=== PATIENT | male | born 1975 | race Caucasian/White ===

== ENCOUNTER 2017-08-30 14:40 | Emergency (ER) | payer MEDICAID, OTHER, SELFPAY ==
[~2017-08-30] VITALS: Ht 162.6 cm; Wt 79.5 kg
[~2017-08-30 14:40] MED LIST: ADVI200T PO; FOLI1TAB4 PO; NICO21PAT TD; THIA100TA PO; VITMTA PO
[2017-08-30] MEDS ORDERED: NS 1,000 ML IV SCH (15:26)
--- NOTE | 2017-08-30 15:37 | ECGEPIP ---
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
[2017-08-30 15:54] LABS: INR 0.94
[2017-08-30 16:00] LABS: BASO % 0.4 % (0.0-1.0); IMMATURE GRANULOCYTE % 0.2 % (0-0); LYMPH # 1.5 10^3/uL (1.5-4.5); LYMPH % 18.7 % (24.0-44.0); MEAN CORPUSCULAR HEMOGLOBIN 32.7 pg (27.0-33.0); MEAN CORPUSCULAR VOLUME 93.2 fl (80.0-96.0); MONO # 0.5 10^3/uL (0.0-0.8); MONO % 6.7 % (0.0-5.0); PLATELET COUNT, AUTOMATED 298 10^3/uL (150-450); RED CELL DISTRIBUTION WIDTH 12.7 % (11.5-14.5); WHITE BLOOD COUNT 8.1 10^3/uL (4.0-10.0)
[2017-08-30 16:23] LABS: ALT/SGPT 60 U/L (12-78); ANION GAP 11 MEQ/L (8-16); AST/SGOT 41 U/L (7-37); BLOOD UREA NITROGEN 9 MG/DL (7-18); CARBON DIOXIDE LEVEL 23 MEQ/L (21-32); CHLORIDE LEVEL 100 MEQ/L (98-107); CREATININE FOR GFR 0.86 MG/DL (0.70-1.30); GLOMERULAR FILTRATION RATE > 60.0 (>60); GLUCOSE, FASTING 87 MG/DL (70-105); POTASSIUM SERUM 4.1 MEQ/L (3.5-5.1); SODIUM LEVEL 134 MEQ/L (136-145)
[2017-08-30 16:24] LABS: ALBUMIN 4.1 GM/DL (3.2-5.2); ALBUMIN/GLOBULIN RATIO 1.08 (1.00-1.93); ALKALINE PHOSPHATASE 60 U/L (45-117); BILIRUBIN,DIRECT 0.2 MG/DL (0.0-0.2); BILIRUBIN,TOTAL 0.7 MG/DL (0.2-1.0); MAGNESIUM LEVEL 1.9 MG/DL (1.8-2.4); TOTAL PROTEIN 7.9 GM/DL (6.4-8.2)
[2017-08-30] MEDS ORDERED: ISOVUE-370 76% 100ML VIAL (Q9967) As Ordered ONE (17:44)
[2017-08-30] MEDS ORDERED: CHLO125TA PO (19:08)
--- NOTE | 2017-08-30 19:30 | REPUSA ---
CLINICAL HISTORY: Abdominal pain. TECHNIQUE: Multiple axial, coronal, sagittal CT images were obtained through the abdomen and pelvis after administration of intravenous contrast material. Oral contrast material is not administered. COMMENTS: There is a 3.8 x 2.4 cm hypodense lesion noted in the anterior segment of the right hepatic lobe whic h is most compatible with hemangioma. Consider additional evaluation with MRI or CT hepatic protocol including delayed sequences. The spleen is normal. The gallbladder is within normal limits. The p ancreas is of normal contour and attenuation characteristics. There is no evidence of adrenal mass. Both kidneys demonstrate prompt and equal nephrograms. The kidneys are normal in size, shape and con figuration. There is no evidence of renal or ureteral mass. No renal or ureteral calculi are identi fied. There is no hydroureter or hydronephrosis. No evidence for appendicitis. There is no bowel wall thickening. No evidence for small or large bow el obstruction. There is no evidence of abdominal ascites or lymphadenopathy. The bladder is not fully distended. The bladder wall is severely thickened measuring up to 9 mm, ple ase correlate clinincally to exclude cystitis. There is no pelvic ascites or lymphadenopathy. The prostate gland is mildly enlarged. Small fat containing umbilical hernia is present. Images of the lung bases show no evidence of pleural or parenchymal mass. There are no pleural effus ions. The bony structures are free of lytic or blastic lesions. IMPRESSION: 1. Hypodense lesion in the anterior segment of the right hepatic lobe which is most compatible with hemangioma. Consider additional evaluation with MRI or CT hepatic protocol including delayed sequenc es. 2. The bladder wall is severely thickened. Please correlate clinincally to exclude cystitis. 3. The prostate gland is mildly enlarged. 4. Small fat containing umbilical hernia.
[2017-08-30 19:48] VITALS: BP 152/94
--- NOTE | 2017-09-03 09:19 | ED PDOC ---
Post-Departure Follow-Up oksana esteban faxed formal report of ct abd/p for fu Maxwell Caceres MD Sep 03, 2017 09:19
== END 2017-08-30 20:12 | disposition home or self-care (01) ==
LOC: M ED 14:40
DX: I10 Essential (primary) hypertension (principal); R10.12 Left upper quadrant pain; G89.29 Other chronic pain; Z91.14 Patient's other noncompliance with medication regimen; F41.9 Anxiety disorder, unspecified; F17.210 Nicotine dependence, cigarettes, uncomplicated; Z87.19 Personal history of other diseases of the digestive system
CPT/HCPCS: 36415; 74177; 80048; 80076; 82550; 82553; 83690; 83735; 85025; 85610; 86850; 86900; 86901; 93005; 93041; 99285; Q9967

== ENCOUNTER → 2017-09-11 | Outpatient (REF) | payer MEDICAID, OTHER ==
[~2017-09-11] MED LIST changes: +CHLO125TA PO
[2017-09-12 12:01] LABS: ANION GAP 12 MEQ/L (8-16); BLOOD UREA NITROGEN 9 MG/DL (7-18); CALCIUM LEVEL 9.5 MG/DL (8.5-10.1); CARBON DIOXIDE LEVEL 27 MEQ/L (21-32); CHLORIDE LEVEL 90 MEQ/L (98-107); CREATININE FOR GFR 0.82 MG/DL (0.70-1.30); GLOMERULAR FILTRATION RATE > 60.0 (>60); GLUCOSE, FASTING 101 MG/DL (70-105); SODIUM LEVEL 129 MEQ/L (136-145)
== END ==
LOC: M SFHCCLAY 15:45
PROVIDERS: ATTEND Nurse Practitioner Family
DX: I10 Essential (primary) hypertension (principal)

== ENCOUNTER → 2017-09-11 | Outpatient (CLI) | payer MEDICAID, OTHER ==
--- NOTE | 2017-09-11 16:46 | REP ---
Clinical: Chest pain . Comparison: 05/03/2016 . Technique: PA and lateral. Findings: The mediastinum and cardiac silhouette are normal. The lung tyson are clear and without acute consolidation, effusion, or pneumothorax. The skeletal structures are intact and normal. Impression: 1. No acute cardiopulmonary process. Signed by Devaughn Zabala MD 09/11/2017 04:37 P
== END ==
LOC: M CLY 16:05
PROVIDERS: ATTEND Nurse Practitioner Family
DX: R07.89 Other chest pain (principal)

== ENCOUNTER → 2017-09-14 | Outpatient (REF) | payer MEDICAID, OTHER ==
[2017-09-14 19:12] LABS: ANION GAP 9 MEQ/L (8-16); BLOOD UREA NITROGEN 8 MG/DL (7-18); CALCIUM LEVEL 9.1 MG/DL (8.5-10.1); CARBON DIOXIDE LEVEL 28 MEQ/L (21-32); CHLORIDE LEVEL 93 MEQ/L (98-107); CREATININE FOR GFR 0.79 MG/DL (0.70-1.30); GLOMERULAR FILTRATION RATE > 60.0 (>60); GLUCOSE, FASTING 87 MG/DL (70-105); SODIUM LEVEL 130 MEQ/L (136-145)
[2017-09-14 19:29] LABS: POTASSIUM SERUM 4.9 MEQ/L (3.5-5.1)
== END ==
LOC: M SFHCCLAY 13:27
PROVIDERS: ATTEND Nurse Practitioner Family
DX: E87.1 Hypo-osmolality and hyponatremia (principal)

== ENCOUNTER → 2017-10-01 | Outpatient (CLI) | payer OTHER ==
[~2017-10-01] MED LIST changes: +GASTROGRAFIN SOLUTION 30ML (Q9963) As Ordered ONE; +ISOVUE-370 76% 100ML VIAL (Q9967) As Ordered ONE
--- NOTE | 2017-10-01 20:03 | REP ---
CT abdomen without and with IV contrast: Dynamic postcontrast imaging. Oral contrast also administered. History: Liver lesion. Comparison CT study August 30, 2017. Comparison CT chest study May 03, 2016. Both of these prior studies showed a 4 cm area of low density in the left lobe of the liver. Dynamic CT protocol was suggested. CT contrast dose: 100 ml of intravenous Isovue 370. CT findings: The low density area in the left lobe is again seen. This appears smaller than on the April [address] study on the postcontrast images measuring approximately 2.5 cm. On dynamic postcontrast images it remains subtly hypodense. These are not the imaging characteristics of a benign hemangioma but rather regional fatty infiltration of the liver or other a benign lesion. The lesion has not progressed in the year and a half since the April 2016 study. No other focal liver lesion is seen. No splenic lesion is seen. Normal adrenal glands are seen. Pancreas is unremarkable. No renal lesion is observed. No hydronephrosis seen. Small and large intestinal bowel loops are unremarkable. Impression: Low density lesion in the left lobe of the liver near the falciform ligament most compatible with regional fatty infiltration of the liver. It appears to have regressed somewhat since its original observation in April of 2016. It does not appear to represent a benign hemangioma. Followup CT scanning could be considered in 1 year. Signed by Stephen Collado MD 10/01/2017 09:45 P
--- NOTE | 2017-10-02 04:39 | REP ---
Clinical: Suspected bladder wall thickening by CT evaluation. Technique: Real time calvillo scale ultrasound examination using curved array transducer. Findings: Very subtle bladder wall thickening to 4 mm cannot be excluded without discrete focal wall abnormality or bladder mass lesion. Bilateral ureteral jets are identified. Prevoid bladder measures 12.5 x 10.7 x 7.0 cm (611 ml). Postvoid bladder measures 4.4 x 3.1 x 2.5 cm (23 ml). Postvoid residual equals 4%. Impression: Essentially normal bladder ultrasound. Minimal circumferential bladder wall thickening to 4 mm is nonspecific and likely inconsequential. Signed by Devaughn Zabala MD 10/02/2017 01:31 A
== END ==
LOC: M RAD 07:53
PROVIDERS: ATTEND Nurse Practitioner Family
DX: N32.89 Other specified disorders of bladder (principal); K76.9 Liver disease, unspecified
CPT/HCPCS: 74170; 76857; Q9963; Q9967

== ENCOUNTER → 2017-10-29 | Outpatient (REF) | payer OTHER, MEDICAID ==
[2017-10-29 14:08] LABS: APPEARANCE, URINE CLEAR (CLEAR); BACTERIA, URINE AUTO NEGATIVE (NEGATIVE); BILIRUBIN, URINE AUTO NEGATIVE (NEGATIVE); BLOOD, URINE BLOOD NEGATIVE (NEGATIVE); COLOR, URINE YELLOW (YELLOW); GLUCOSE, URINE (UA) AUTO NEGATIVE (NEGATIVE); KETONE, URINE AUTO NEGATIVE (NEGATIVE); LEUKOCYTE ESTERASE, URINE AUTO NEGATIVE (NEGATIVE); NITRITE, URINE AUTO NEGATIVE (NEGATIVE); PROTEIN, URINE AUTO NEGATIVE (NEGATIVE); RBC, URINE AUTO 1 /HPF (0-3); SPECIFIC GRAVITY URINE AUTO 1.005 (1.002-1.035); SQUAMOUS EPITHELIAL CELL UR AU 0 /HPF (0-6); UROBILINOGEN, URINE AUTO 0.2 mg/dL (0.0-2.0); WBC, URINE AUTO 5 /HPF (0-3)
== END ==
LOC: M SMT 13:19
DX: N32.89 Other specified disorders of bladder (principal)

== ENCOUNTER → 2017-11-27 | Day surgery (SDC) | payer OTHER ==
[~2017-11-27] MED LIST changes: -ADVI200T PO; -CHLO125TA PO; -FOLI1TAB4 PO; -GASTROGRAFIN SOLUTION 30ML (Q9963) As Ordered ONE; -ISOVUE-370 76% 100ML VIAL (Q9967) As Ordered ONE; +LIDOCAINE 2% INJ 100 MG/5 ML SDV (FOR ANES.) As Ordered; -NICO21PAT TD; +PROPOFOL 200 MG/20 ML VIAL As Ordered; -THIA100TA PO; -VITMTA PO
[2017-11-27] MEDS: NS 1,000 ML IV (08:37)
== END | disposition home or self-care (01) ==
LOC: M OPP 08:21
DX: R19.7 Diarrhea, unspecified (principal); D12.2 Benign neoplasm of ascending colon; D12.3 Benign neoplasm of transverse colon; K64.8 Other hemorrhoids; I10 Essential (primary) hypertension; R12 Heartburn; K21.9 Gastro-esophageal reflux disease without esophagitis; R05 Cough; G47.30 Sleep apnea, unspecified; R06.83 Snoring; N40.1 Benign prostatic hyperplasia with lower urinary tract symptoms; F17.210 Nicotine dependence, cigarettes, uncomplicated; Z79.899 Other long term (current) drug therapy; Z80.1 Family history of malignant neoplasm of trachea, bronchus and lung; Z80.3 Family history of malignant neoplasm of breast
CPT/HCPCS: 45380

== ENCOUNTER → 2018-08-20 | Outpatient (CLI) | payer OTHER | LOC: M RAD 13:16 | DX: R60.9 Edema, unspecified (principal) | CPT/HCPCS: 93970 ==

== ENCOUNTER → 2018-09-09 | Outpatient (REF) | payer OTHER ==
[2018-09-09 11:53] LABS: BASO # 0.1 10^3/uL (0.0-0.2); BASO % 0.9 % (0.0-1.0); EOS # 0.1 10^3/uL (0.0-0.50); EOS % 0.9 % (0.0-3.0); HEMATOCRIT 48.6 % (42.0-52.0); HEMOGLOBIN 16.8 g/dl (13.5-17.5); IMMATURE GRANULOCYTE % 0.1 % (0-3.0); MEAN CORPUSCULAR HEMOGLOBIN 32.6 pg (27.0-33.0); MEAN CORPUSCULAR HGB CONC 34.6 g/dl (32.0-36.5); MEAN CORPUSCULAR VOLUME 94.2 fl (80.0-96.0); MONO # 0.7 10^3/uL (0.0-0.8); MONO % 10.4 % (0.0-5.0); NEUTROPHILS # 4.1 10^3/uL (1.8-7.7); NEUTROPHILS % 58.7 % (36.0-66.0); PLATELET COUNT, AUTOMATED 376 10^3/uL (150-450); RED BLOOD COUNT 5.16 10^6/uL (4.30-6.10); RED CELL DISTRIBUTION WIDTH 12.7 % (11.5-14.5); WHITE BLOOD COUNT 6.9 10^3/uL (4.0-10.0)
[2018-09-09 12:33] LABS: ALBUMIN/GLOBULIN RATIO 1.14 (1.00-1.93); ALKALINE PHOSPHATASE 57 U/L (45-117); ALT/SGPT 65 U/L (12-78); ANION GAP 8 MEQ/L (8-16); AST/SGOT 26 U/L (7-37); BILIRUBIN,TOTAL 0.4 MG/DL (0.2-1.0); BLOOD UREA NITROGEN 19 MG/DL (7-18); CALCIUM LEVEL 9.4 MG/DL (8.5-10.1); CARBON DIOXIDE LEVEL 26 MEQ/L (21-32); CHLORIDE LEVEL 105 MEQ/L (98-107); CHOLESTEROL LEVEL 230 MG/DL (<200); CHOLESTEROL RISK RATIO 6.388 (<5); CREATININE FOR GFR 1.19 MG/DL (0.70-1.30); FREE T4 1.05 NG/DL (0.76-1.46); GLOMERULAR FILTRATION RATE > 60.0 (>60); GLUCOSE, FASTING 99 MG/DL (70-100); HDL CHOLESTEROL 36 MG/DL (>40); LDL CHOLESTEROL 162 MG/DL (<100); NON-HDL-C 194 MG/DL; SODIUM LEVEL 139 MEQ/L (136-145); TOTAL PROTEIN 7.5 GM/DL (6.4-8.2); TRIGLYCERIDES LEVEL 159 MG/DL (<150)
== END ==
LOC: M SFHCCLAY 08:10
DX: I10 Essential (primary) hypertension (principal); F10.20 Alcohol dependence, uncomplicated
CPT/HCPCS: 84443

== ENCOUNTER → 2018-12-10 | Outpatient (REF) | payer OTHER ==
[~2018-12-10] MED LIST changes: +ADVI200T PO; +CHLO125TA PO; +FLOM0.4C39 PO; +FOLI1TAB11 PO; -LIDOCAINE 2% INJ 100 MG/5 ML SDV (FOR ANES.) As Ordered; +LISI-538 PO; +NICO21PAT TD; -PROPOFOL 200 MG/20 ML VIAL As Ordered; +THIA100T7 PO; +THIA100TA PO; +VITMTA PO
[2018-12-10 12:40] LABS: ALT/SGPT 39 U/L (12-78); BILIRUBIN,TOTAL 0.6 MG/DL (0.2-1.0); BLOOD UREA NITROGEN 9 MG/DL (7-18); CALCIUM LEVEL 9.2 MG/DL (8.5-10.1); CARBON DIOXIDE LEVEL 27 MEQ/L (21-32); CHLORIDE LEVEL 103 MEQ/L (98-107); CHOLESTEROL LEVEL 160 MG/DL (<200); CHOLESTEROL RISK RATIO 2.962 (<5); GLOMERULAR FILTRATION RATE > 60.0 (>60); GLUCOSE, FASTING 91 MG/DL (70-100); HDL CHOLESTEROL 54 MG/DL (>40); LDL CHOLESTEROL 84 MG/DL (<100); NON-HDL-C 106 MG/DL; POTASSIUM SERUM 4.5 MEQ/L (3.5-5.1); SODIUM LEVEL 139 MEQ/L (136-145); TOTAL PROTEIN 7.3 GM/DL (6.4-8.2); TRIGLYCERIDES LEVEL 111 MG/DL (<150)
== END ==
LOC: M SFHCCLAY 09:28
PROVIDERS: ATTEND Nurse Practitioner Family
DX: E78.49 Other hyperlipidemia (principal)

== ENCOUNTER 2019-02-24 02:48 | Inpatient (IN) | payer OTHER ==
[~2019-02-24] VITALS: Ht 162.6 cm; Wt 88.0 kg
[2019-02-24] VITALS (20 sets, daily range): BP systolic 100–140; BP diastolic 65–94
[2019-02-24] MEDS ORDERED: MORPHINE 4 MG/ML 1ML VIAL/SYRINGE (J2270) IV ONE (03:45)
[2019-02-24 04:31] LABS: HEMATOCRIT 41.3 % (42.0-52.0); HEMOGLOBIN 14.1 g/dl (13.5-17.5); MEAN CORPUSCULAR HEMOGLOBIN 31.3 pg (27.0-33.0); MEAN CORPUSCULAR HGB CONC 34.1 g/dl (32.0-36.5); MEAN CORPUSCULAR VOLUME 91.6 fl (80.0-96.0); PLATELET COUNT, AUTOMATED 130 10^3/uL (150-450); RED BLOOD COUNT 4.51 10^6/uL (4.30-6.10); WHITE BLOOD COUNT 6.3 10^3/uL (4.0-10.0)
[2019-02-24] MEDS ORDERED: CLAR10CA3 PO (04:35)
[2019-02-24] MEDS ORDERED: ATOR1TAB21 PO (04:35)
[2019-02-24] MEDS ORDERED: AMLO10TA5 PO (04:35)
[2019-02-24] MEDS ORDERED: CLOTLOT TOP (04:35)
[2019-02-24] MEDS ORDERED: B-1100TA2 PO (04:35)
[2019-02-24 04:39] LABS: INR 0.92; PROTHROMBIN TIME 12.5 SECONDS (12.1-14.4)
[2019-02-24 04:40] LABS: PARTIAL THROMBOPLASTIN TIME 46.2 SECONDS (25.4-37.6)
[2019-02-24] MEDS ORDERED: THIAMINE HCL 200 MG/2 ML VIAL (J3411) IM ONE (04:45)
[2019-02-24] MEDS ORDERED: MOM 30ML SUSPENSION UDC PO PRN (04:45)
[2019-02-24] MEDS ORDERED: MAALOX 30 ML SUSP *UDC PO PRN (04:45)
[2019-02-24] MEDS ORDERED: ACETAMINOPHEN TAB 650MG DOSE (2X325MG) PO PRN (04:45)
[2019-02-24] MEDS ORDERED: PANTOPRAZOLE 40MG INJ (PROTONIX) (C9113) IV ONE (04:45)
--- NOTE | 2019-02-24 04:48 | HPEPDOC ---
General Date of Admission February 24, 2019 at 04:13 Chief Complaint The patient is a 44-year-old male admitted with a reason for visit of Right Pop liteal Artery Occlusion. Source: Patient, RN/, Old records History of Present Illness Mr. Pride is a 44 years old man with hx/o smoking and heavy alcohol use. He presented to [facility] ER with c/o right leg pain; unclear for how long his symptoms were going on. But he reports pain when walking, and feeling cold on right foot. CTA showed total occlusion of the right Popliteal Artery with collaterals. Pt was transferred to [facility] ED, and seen by Dr. Allison Alas who is taking pt to OR for catheter-guided thrombolytic procedure. During my visit, pt appears flushed and anxius. He reports drinking last night until 8 pm. His breath smells of alcohol. He has previously been treated for alcohol withdrawal. Home Medications Scheduled Amlodipine Besylate (Amlodipine Besylate) 10 Mg Tablet, 10 MG PO DAILY, (Reported) Atorvastatin Calcium (Atorvastatin Calcium) 20 Mg Tablet, 20 MG PO DAILY, (Reported) Thiamine HCl (Vitamin B-1) 100 Mg Tablet, 100 MG PO DAILY, (Reported) Scheduled PRN Clotrimazole/Betamethasone Dip (Clotrimazole-Betamethasone Lot) 30 Ml Lotion, 1 APLCT TOP BID PRN for EAR PAIN, (Reported) APPLIES IN RIGHT EAR DIRECTED Loratadine (Claritin) 10 Mg Capsule, 10 MG PO DAILY PRN for ALLERGIES, (Reported) Allergies Coded Allergies: No Known Allergies (Unverified , 11/12/17) Past Medical History Medical History Alcohol use, Psychiatric disorder Surgical History none Family History Significant Family History: Cancer Social History * Smoker: current smoker Alcohol: heavy Drugs: denies A-FIB/CHADSVASC A-FIB History Current/History of A-Fib/PAF?: No Review of Systems Constitutional: Denies: Chills, Fever Eyes: Denies: Pain ENT: Denies: Head Aches Skin: Denies: Rash, Lesions Pulmonary: Denies: Dyspnea, Cough Cardiovascular: Denies: Chest Pain Gastrointestinal: Denies: Nausea, Vomiting, Abdominal Pain Genitourinary: Denies: Dysuria Musculoskeletal: Denies: Neck Pain, Back Pain Neurological: Denies: Weakness Psych: Reports: Mood Normal, Anxiety Physical Examination General Exam: Positive: Alert, Cooperative, No Acute Distress Eye Exam: Positive: PERRLA ENT Exam: Positive: Atraumatic Neck Exam: Positive: Supple; Negative: JVD Chest Exam: Positive: Clear to auscultation, Normal air movement Heart Exam: Positive: Rate Normal, Regular Rhythm Abdomen Exam: Positive: Normal bowel sounds, Soft; Negative: Tenderness Extremity Exam: Positive: Other (right foot cold and pale; right dorsalis pedis pulse is very weak, barely palpable); Negative: Edema Skin Exam: Positive: Nl turgor and temperature; Negative: Rash, Breakdown Neuro Exam: Positive: Normal Speech, Strength at 5/5 X4 ext, Normal Tone Psych Exam: Positive: Mental status NL, Mood NL, Anxiety, Oriented x 3 Vital Signs Vital Signs Date Time Temp Pulse Resp B/P (MAP) Pulse Ox O2 Delivery O2 Flow Rate FiO2 02/24/19 04:25 89 18 119/75 (90) 97 02/24/19 03:22 97.6 Laboratory Data Labs 24H Laboratory Tests 2 02/24/19 04:09: Prothrombin Time 12.5, Prothromb Time International Ratio 0.92, Activated Partial Thromboplast Time 46.2H 02/24/19 04:23: Nucleated Red Blood Cells % (auto) 0.0 CBC/BMP Laboratory Tests 02/24/19 04:23 Red Blood Count 4.51, Mean Corpuscular Volume 91.6, Mean Corpuscular Hemoglobin 31.3, Mean Corpuscular Hemoglobin Concent 34.1, Red Cell Distribution Width 13.5 Assessment/Plan PVD With Total Occlusion of Right Popliteal Artery - Pt going to OR for catheter-guided thrombolytic tx - Admit to ICU post-op - Post-thrombolytic management to be arranged by Dr. Alas - Monitor bleeding - Tele, r/o AF; Echo Heavy Alcohol Use, Tobacco Use - CIWA protocol, plus Ativan standing dose due to high risk of withdrawal, which can significantly affect post-thrombolytic management - Thiamine, Folate, Vitamins - IV hydration; IV Protonix - Nicotiine patch prn Problems (1) Alcohol withdrawal Status: Acute (2) Abdominal pain Status: Acute (3) Hypertension Status: Acute (4) Arterial embolism of leg Status: Acute Plan / VTE VTE Prophylaxis Ordered?: No VTE Exclusion Mechanical Proph: Patient on IV Heparin VTE Exclusion Pharmacological: IV Heparin Therapy SAMUEL COHEN MD February 24, 2019 04:47
[2019-02-24] MEDS ORDERED: PROPOFOL 200 MG/20 ML VIAL As Ordered ONE (04:49)
[2019-02-24] MEDS ORDERED: KETAMINE HCL 200 MG/20 ML VIAL As Ordered ONE (04:50)
[2019-02-24] MEDS ORDERED: ONDANSETRON 4MG/2ML VIAL (J2405) As Ordered ONE (04:50)
[2019-02-24] MEDS ORDERED: LIDOCAINE 2% INJ 100 MG/5 ML SDV (FOR ANES.) As Ordered ONE (04:50)
[2019-02-24] MEDS ORDERED: MIDAZOLAM INJ 5 MG/ML VIAL (J2250) As Ordered ONE (04:51)
[2019-02-24] MEDS ORDERED: fentaNYL 100 MCG/2 ML INJECTION (J3010) As Ordered ONE ×2 (04:51→15:46)
[2019-02-24] MEDS ORDERED: ceFAZolin 2 GM/D5W 50 ML IV BAG (J0690 PER 500MG) As Ordered ONE (04:56)
[2019-02-24] MEDS ORDERED: HEPARIN SOD (PORCINE) 5000 UNITS/ML VIAL As Ordered ONE (04:56)
[2019-02-24] MEDS ORDERED: LORazepam 2 MG TAB PO PRN (05:00)
[2019-02-24] MEDS ORDERED: ALTEPLASE 2 MG/2 ML VIAL (J2997 PER 1MG) IV ONE (05:00)
[2019-02-24] MEDS: NS IV SCH ×2 (05:00→15:23)
[2019-02-24] MEDS ORDERED: NICOTINE 21MG/24HR 1 EA TRANSDERMAL TD PRN (05:00)
[2019-02-24] MEDS: ALTEPLASE RECOMBINANT IV SCH ×2 (05:00→15:23)
[2019-02-24 05:04] LABS: ALBUMIN 3.5 GM/DL (3.2-5.2); ALT/SGPT 127 U/L (12-78); BILIRUBIN,TOTAL 0.6 MG/DL (0.2-1.0); BLOOD UREA NITROGEN 7 MG/DL (7-18); CALCIUM LEVEL 8.5 MG/DL (8.5-10.1); CARBON DIOXIDE LEVEL 26 MEQ/L (21-32); CHLORIDE LEVEL 105 MEQ/L (98-107); CREATININE FOR GFR 0.72 MG/DL (0.70-1.30); GLOMERULAR FILTRATION RATE > 60.0 (>60); GLUCOSE, FASTING 90 MG/DL (70-100); MAGNESIUM LEVEL 2.1 MG/DL (1.8-2.4); PHOSPHORUS LEVEL 3.3 MG/DL (2.5-4.9); SODIUM LEVEL 140 MEQ/L (136-145); TOTAL PROTEIN 6.9 GM/DL (6.4-8.2)
--- NOTE | 2019-02-24 05:08 | CR.PDOC ---
General Date of Consultation: February 24, 2019 Consultation REASON FOR CONSULTATION/CHIEF COMPLAINT: "My right foot got cold " HISTORY OF PRESENT ILLNESS: This is a very pleasant 44-year-old gentleman who is drinking beer with a friend yesterday afternoon and evening, and around 8 PM he was walking home and noted pain in his right foot. The pain worsened and he was unable to stand on his foot and he was seen at an outside hospital. A CTA of the abdomen and pelvis with runoff revealed occlusion of the right popliteal artery and proximal anterior tibial artery with patent distal tibial runoff. I do not see an aneurysm on the CTA, I do see some calcified plaque. It is unclear if this is secondary to chronic peripheral vascular disease versus embolic event. We will need to obtain an echo, likely tomorrow, but he has no history of atrial fibrillation, palpitations, and his EKG is normal sinus rhythm. I think the most likely scenario is that he had some chronic peripheral vascular disease that thrombosed. I discussed the risks benefits and alternatives to thrombolysis procedure with the patient. He denies a history of nosebleeds, GI bleeds, blood in his stool, coughing up blood, vomiting up blood, brain aneurysms, stroke, recent surgery, recent trauma including falls or motor vehicle collisions, recent head injury. He is aware that with TPA thrombolysis there is an increased risk of bleeding due to his history of alcoholism, but we're hoping to use initial small amount of TPA in a short time and minimize this risk. The patient has a normal creatinine and BUN and GFR. We will try to use as minimal IV dye is possible since he had a CTA earlier in the evening. The patient is agreeable to proceed. He will be admitted to the ICU to the hospitalist service following the procedure. He will be on flat bedrest. We are going to access the left groin and place and up and over sheath to the right lower extremity so that after TPA lysis we can perform any angioplasty and/or stenting as needed if we are able to open up flow to the artery. I did discuss with the patient that if we cannot restore perfusion, he may require bypass procedure but this will be decided after we attempted thrombolysis. He is agreeable to proceed. Informed consent was obtained. ALLERGIES: Please see below. No known drug allergies. HOME MEDICATIONS: Please see below. Atorvastatin, amlodipine. PAST MEDICAL HISTORY: 1. Hypercholesterolemia 2. Hypertension 3. Irritable bowel syndrome 4. Tobacco abuse 5. Daily alcohol use PAST SURGICAL HISTORY: None, but he does report he has had a colonoscopy. FAMILY HISTORY: Father: from lung cancer Mother: Breast cancer survivor SOCIAL HISTORY: Marital status and/or living arrangements: Patient lives alone Tobacco use: One pack per day ETOH: 6-12 beers per day Illicit drug use: Denies REVIEW OF SYSTEMS: CONSTITUTIONAL: Denies fevers or chills HEENT: Denies vision loss or hearing loss CARDIOVASCULAR: Denies palpitations or chest pain RESPIRATORY: Denies shortness of breath. Positive cough GENITOURINARY: Positive hesitancy MUSCULOSKELETAL: Positive right leg pain. Positive back pain. GASTROINTESTINAL: Positive IBS SKIN: Denies rashes NEUROLOGICAL: No headaches or seizures PSYCHIATRIC: Positive depression. Denies anxiety. ENDOCRINE: Denies diabetes or thyroid disease HEMATOLOGIC/LYMPHATIC: Denies bleeding or clotting disorders ALLERGIC/IMMUNOLOGIC: Denies. PHYSICAL EXAMINATION: VITAL SIGNS: Please see below. GENERAL APPEARANCE: Medically stable. No acute distress. HEENT: Eyes are bloodshot. Vision and hearing are grossly intact. Poor dentition. RESPIRATORY: Coarse breath sounds bilaterally. No wheezes auscultated. CARDIOVASCULAR: Regular rate and rhythm ABDOMEN: Soft nontender nondistended EXTREMITIES: Distal perfusion intact bilateral upper extremities. Distal perfusion left lower extremity intact with weekly palpable DP PT pulses. Right lower extremity monophasic Doppler signal at the DP and PT, weaker on the DP. The foot is cooler than the left foot with sluggish cap refill, but motor and sensation are intact. NEUROLOGICAL: Alert and oriented 3. Moving all extremities equally. PSYCHIATRIC: Pleasant and cooperative. Possibly still a bit intoxicated. LABORATORY DATA: Please see labs from outside hospital. ASSESSMENT/PLAN: 1. Nothing by mouth. We'll proceed to the OR for endovascular thrombolysis of the right popliteal artery and proximal tibial arteries. He will have TPA thrombolysis until tomorrow afternoon. At that point, we will do a second look in interventional radiology with possible additional thrombolysis, possible removal of thrombolysis catheter, possible angioplasty and stenting. ICU postop. 2. Postop patient will need an echo to rule out possible embolic source for popliteal occlusion, although it seems more likely this is occlusion of stenosis from PVD. Vital Signs/I&O Vital Signs Date Time Temp Pulse Resp B/P (MAP) Pulse Ox O2 Delivery O2 Flow Rate FiO2 02/24/19 04:25 89 18 119/75 (90) 97 02/24/19 03:22 97.6 Laboratory Data Labs 24H Laboratory Tests 2 02/24/19 04:09: Prothrombin Time 12.5, Prothromb Time International Ratio 0.92, Activated Partial Thromboplast Time 46.2H 02/24/19 04:23: Nucleated Red Blood Cells % (auto) 0.0 CBC/BMP Laboratory Tests 02/24/19 04:23 Red Blood Count 4.51, Mean Corpuscular Volume 91.6, Mean Corpuscular Hemoglobin 31.3, Mean Corpuscular Hemoglobin Concent 34.1, Red Cell Distribution Width 13.5 Allergies Coded Allergies: No Known Allergies (Unverified , 11/12/17) Home Medications Scheduled Amlodipine Besylate (Amlodipine Besylate) 10 Mg Tablet, 10 MG PO DAILY, (Reported) Atorvastatin Calcium (Atorvastatin Calcium) 20 Mg Tablet, 20 MG PO DAILY, (Reported) Thiamine HCl (Vitamin B-1) 100 Mg Tablet, 100 MG PO DAILY, (Reported) Scheduled PRN Clotrimazole/Betamethasone Dip (Clotrimazole-Betamethasone Lot) 30 Ml Lotion, 1 APLCT TOP BID PRN for EAR PAIN, (Reported) APPLIES IN RIGHT EAR DIRECTED Loratadine (Claritin) 10 Mg Capsule, 10 MG PO DAILY PRN for ALLERGIES, (Reported) ALEJANDRO HARVEY MD February 24, 2019 05:08
[2019-02-24] MEDS ORDERED: LORATADINE 10 MG TAB PO PRN (05:15)
[2019-02-24 05:29] LABS: ETHYL ALCOHOL (ETHANOL) 0.064 % (0.000-0.010)
[2019-02-24] MEDS ORDERED: CONRAY-60 60% 50ML VIAL (Q9961) As Ordered ONE (05:39)
[2019-02-24] MEDS ORDERED: PERCOCET 5MG/325MG TAB As Ordered ONE (07:09)
[2019-02-24] MEDS ORDERED: oxyCODONE 5MG TAB PO PRN (07:15)
[2019-02-24] MEDS ORDERED: PERCOCET 5MG/325MG TAB PO PRN (07:15)
[2019-02-24] MEDS ORDERED: ONDANSETRON 4MG/2ML VIAL (J2405) IV PRN (07:15)
[2019-02-24] MEDS ORDERED: fentaNYL 100 MCG/2 ML INJECTION (J3010) IV PRN (07:15)
--- NOTE | 2019-02-24 07:22 | ROOPDOC ---
[facility] Report Of Operation Report of Operation DATE OF PROCEDURE: 02/24/19 PREPROCEDURE DIAGNOSES: Thrombosis of the right popliteal artery and proximal tibials was symptomatic cold leg POSTPROCEDURE DIAGNOSES: Same PROCEDURE: 1. Ultrasound-guided access left common femoral artery 2. Right lower extremity arteriogram 3. Placement of a TPA thrombolysis catheter right popliteal artery SURGEON: Alejandro Hardy MD ANESTHESIA: Monitored anesthesia care and local. INDICATION FOR PROCEDURE:Very pleasant 44-year-old gentleman with acute thrombosis of his right popliteal artery and symptomatic cold leg. We discussed the risks benefits and alternatives to attempting a thrombolysis by placing thrombolysis catheter across the occlusion. The patient had no contraindications to tPA at this time. Risks benefits and alternatives were explained and he is agreeable to proceed. Informed consent was obtained. We plan to access from the left groin instead of the upper extremity in case we need to treat suspected chronic disease in the left popliteal artery after thrombolysis if the thrombolysis a successful. The patient is agreeable to this plan. We will attempt to bring him back for a planned repeat imaging this afternoon. INTERPRETATION: 1. The popliteal artery is thrombosed with reconstitution of the tibials from collaterals around the knee. 2. 20 cm thrombolysis catheter placed from the distal SFA to the mid peroneal artery. PROCEDURE: The patient was brought to the OR in stable condition and placed supine on the order table. Antibiotics and monitored anesthesia care were administered without complication. Bilateral groins were prepped and draped in sterile fashion after placing a Waldrop catheter. A timeout was performed. Local anesthesia was a service station operator to skin and subcutaneous tissue over the left groin and a microneedle was used to access left common femoral artery over the femoral head under ultrasound guidance. A wire was passed through this access and the needle was removed. A micro-sheath was placed. A Glidewire was advanced into the distal aorta under fluoroscopic guidance and the micro-sheath was removed. A 6 Guyanese sheath was placed and flushed with saline. We then utilized Glidewire to glide To go up and over the bifurcation and select the superficial femoral artery. We advanced the wire down to the distal superficial femoral artery. Within exchanged our sheath over the wire for 45 cm 6 Guyanese sheath. This was flushed with saline. We attempted to advance her wire across the occlu lazara which proved challenging at first. He easily selected collaterals but we had a difficult time staying within the popliteal artery and accessing the tibial vessels. Arteriogram did confirm that the popliteal artery was occluded a few centimeters from its origin and reconstituted through collaterals around the knee the proximal popliteal arteries. We obtained imaging to ensure we were in the true lumen of the popliteal artery and the tibial vessels. We were eventually able to cross our wire into the peroneal. We then advanced a 20 cm infusion length from the lysis catheter over the wire and the wire was removed. The catheter extended from the distal SFA to the proximal peroneal. This was flushed with saline and then 6 mg of TPA was slowly administered to the area. We then started an infusion of 1 mg an hour of TPA through the catheter. We switched the heparin drip to the port on the sheath and ran this at 400 units an hour and this will not be titrated. Sterile dressings were applied at the groin and an Ioban was used to secure the TPA catheter to the leg. The patient was allowed to awaken from anesthesia was taken to PACU in stable condition. He will be transferred to the ICU once suitably recovered. ESTIMATED BLOOD LOSS: Approximately 5 mL. COMPLICATIONS: None. PLAN: Our plan is to bring the patient back for a recheck of his perfusion in the right lower extremity in IR later today. He should remain on flat bed rest, logroll only, reverse Trendelenburg is okay. Closely monitor for any bleeding concerns. TPA precautions ongoing. Every 6 hour PTT fibrinogen and CBC. Heparin 400 units an hour through the sheath in the left groin- do not titrate. TPA at 1 mg an hour or 25 mL an hour through the catheter in the left groin to treat this thrombosis in the right popliteal artery. Clear liquids only. ALEJANDRO HARDY MD February 24, 2019 07:22
--- NOTE | 2019-02-24 07:58 | IPNPDOC ---
Subjective Date Seen The patient was seen on 02/24/19. Subjective Chief Complaint/HPI right popliteal occlusion Events since last encounter patient is s/p TPA procedure this am with Dr. Hardy, vascular surgeon. admitted to ICU. Planned re-intervention this afternoon per vascular recommendations. Echo ordered to r/o valvular disorder. Patient admits to 6-8 beers most days and 1 ppd of cigarettes. Prior admissions required oxazepam and prn ativan for ETOH withdrawal. Constitutional: Denies: Chills, Fever, Night Sweats Pulmonary: Reports: Cough; Denies: Dyspnea Cardiovascular: Denies: Chest Pain, Palpitations, Orthopnea, Paroxysmal Noc. Dyspnea, Lt Headedness Gastrointestinal: Denies: Nausea, Vomiting, Abdominal Pain, Diarrhea, Constipation Psych: Reports: Mood Normal; Denies: Depression, Memory Issues Objective Physical Examination General Exam: Positive: Alert, Cooperative, No Acute Distress Eye Exam: Positive: PERRLA ENT Exam: Positive: Atraumatic Neck Exam: Positive: Supple; Negative: JVD Chest Exam: Positive: Clear to auscultation, Normal air movement Heart Exam: Positive: Rate Normal, Regular Rhythm Abdomen Exam: Positive: Normal bowel sounds, Soft, Other (mildly distended); Negative: Tenderness Extremity Exam: Positive: Other (right foot cold and pale; right dorsalis pedis pulse is very weak, barely palpable); Negative: Edema Skin Exam: Positive: Nl turgor and temperature; Negative: Rash, Breakdown Neuro Exam: Positive: Normal Speech, Strength at 5/5 X4 ext, Normal Tone Psych Exam: Positive: Mental status NL, Mood NL, Anxiety, Oriented x 3 A-FIB/CHADSVASC A-FIB History Current/History of A-Fib/PAF?: No Current Oral Anticoagulant The: No Assessment /Plan Problems (1) Arterial embolism of leg Status: Acute Problem Text: Managed by Vascular surgery. Currently with TPA. Patient will most likely need chronic anti-coagulation upon DC. (2) Alcohol withdrawal Status: Acute Problem Text: Will start on Oxazepam, ativan prn. CIWA protocol in place. (3) Alcoholism Status: Chronic Problem Text: 20+ year drinker. CIWA protocol and Oxazepam/Lorazepam in place. (4) Elevated LFTs Problem Text: patient with elevated LFT, abdominal distention. will eval Liver US and monitor LFT. (5) Abdominal pain Status: Acute (6) Hypertension Status: Chronic Response to Treatment: Stable Problem Text: Continue Amlodipine. (7) Smoker Status: Chronic Problem Text: Chronic smoker: 1ppd for 20+ years. Unable to place Nicotine patch due to recent TPA treatment. Plan/VTE VTE Prophylaxis Ordered?: Yes VTE Exclusion Mechanical Proph: Patient on IV Heparin VTE Exclusion Pharmacological: IV Heparin Therapy Plan Family Medicine Attending Note: I saw and examined Mr. Pride, discussed with TIAGO Jimenez. Agree with her note as documented. He went down for a second TPA treatment this afternoon. This reportedly went well, however the catheter is still in place as he will likely need at least 1 more treatment. He is not experiencing any alcohol withdrawal at this time. (host) VS, I&O, 24H, Fishbone Vital Signs/I&O Vital Signs Date Time Temp Pulse Resp B/P (MAP) Pulse Ox O2 Delivery O2 Flow Rate FiO2 02/24/19 07:10 18 98 2.0 02/24/19 07:05 98.5 75 107/79 (88) Laboratory Data 24H LABS Laboratory Tests 2 02/24/19 04:09: Prothrombin Time 12.5, Prothromb Time International Ratio 0.92, Activated Partial Thromboplast Time 46.2H 02/24/19 04:23: Nucleated Red Blood Cells % (auto) 0.0, Anion Gap 9, Glomerular Filtration Rate > 60.0, Blood Urea Nitrogen 7, Creatinine 0.72, Sodium Level 140, Potassium Level 4.0, Chloride Level 105, Carbon Dioxide Level 26, Calcium Level 8.5, Phosphorus Level 3.3, Aspartate Amino Transf (AST/SGOT) 82H, Alanine Aminotransferase (ALT/SGPT) 127H, Alkaline Phosphatase 56, Total Bilirubin 0.6, Total Protein 6.9, Albumin 3.5, Magnesium Level 2.1, Albumin/Globulin Ratio 1.03, Ethyl Alcohol Level 0.064H 02/24/19 07:02: Fibrinogen 289 CBC/BMP Laboratory Tests 02/24/19 04:23 Red Blood Count 4.51, Mean Corpuscular Volume 91.6, Mean Corpuscular Hemoglobin 31.3, Mean Corpuscular Hemoglobin Concent 34.1, Red Cell Distribution Width 13.5 , Calcium Level 8.5, Phosphorus Level 3.3, Aspartate Amino Transf (AST/SGOT) 82 H, Alanine Aminotransferase (ALT/SGPT) 127 H, Alkaline Phosphatase 56, Total Bilirubin 0.6, Total Protein 6.9, Albumin 3.5 Ann-Marie Worley February 24, 2019 7:58 am Barry Vaz MD February 24, 2019 11:28 pm
[2019-02-24] MEDS ORDERED: LORazepam 2 MG TAB PO SCH (09:00)
[2019-02-24] MEDS: PANTOPRAZOLE 40MG INJ (PROTONIX) (C9113) IV SCH (09:13)
[2019-02-24] MEDS: KCL 40MEQ in NS 1000ML 1,000 ML IV SCH ×2 (09:13→21:13)
[2019-02-24] MEDS: OXAZEPAM 15 MG CAP PO SCH ×3 (09:14→21:13)
[2019-02-24] MEDS: MULTIVITAMINS/MINERALS THERAP 1 TAB PO SCH (09:14)
[2019-02-24] MEDS: FOLIC ACID 1 MG TAB PO SCH (09:14)
[2019-02-24] MEDS: ATORVASTATIN 20 MG TAB PO SCH (09:14)
[2019-02-24] MEDS: THIAMINE 100 MG TAB PO SCH ×2 (09:14→21:13)
[2019-02-24] MEDS: amLODIPine 10 MG TAB PO SCH (09:15)
--- NOTE | 2019-02-24 09:31 | REP ---
Right upper quadrant sonography: History: Elevated liver function studies. Abdominal distension. Comparison CT study October 01, 2017. Sonographic findings: Scanning through the right upper quadrant of the abdomen demonstrates sludge in a mildly dilated gallbladder. No stone is seen. Common bile duct is normal measuring 0.6 cm in greatest diameter. The gallbladder measures up to 10.4 cm in diameter. No pericholecystic fluid or gallbladder wall thickening is seen. No focal liver lesion is appreciated. There is evidence of mild fatty infiltration. The liver is not felt to be enlarged. Limited views of the pancreas show no abnormality. There is no evidence of ascites or right renal abnormality. The right kidney measures 11.6 x 6.0 x 5.0 cm. Impression: Sludge in a mildly dilated gallbladder. Evidence of mild fatty infiltration of the liver. Otherwise negative right upper quadrant sonography. Electronically Signed by Stephen Collado MD 02/24/2019 07:13 P
[2019-02-24] MEDS: HEPARIN DRIP 25,000 UNITS in APPROPRIATE DILUENT 1 EA IV SCH (10:03)
[2019-02-24] MEDS: DOCUSATE SODIUM 100 MG CAP PO SCH ×2 (10:03→21:13)
[2019-02-24] MEDS: oxyCODONE 5MG TAB PO PRN ×2 (10:28→17:16)
[2019-02-24 13:04] LABS: HEMATOCRIT 39.6 % (42.0-52.0); HEMOGLOBIN 13.6 g/dl (13.5-17.5); MEAN CORPUSCULAR HEMOGLOBIN 32.1 pg (27.0-33.0); MEAN CORPUSCULAR HGB CONC 34.3 g/dl (32.0-36.5); MEAN CORPUSCULAR VOLUME 93.4 fl (80.0-96.0); PLATELET COUNT, AUTOMATED 101 10^3/uL (150-450); RED BLOOD COUNT 4.24 10^6/uL (4.30-6.10); WHITE BLOOD COUNT 6.3 10^3/uL (4.0-10.0)
[2019-02-24 13:12] LABS: PARTIAL THROMBOPLASTIN TIME 31.1 SECONDS (25.4-37.6)
[2019-02-24] MEDS ORDERED: MIDAZOLAM INJ 2 MG/2 ML VIAL (J2250) As Ordered ONE (15:46)
[2019-02-24] MEDS ORDERED: HEPARIN 1,000 UNITS/ML 10ML VIAL (FOR RADIOLOGY& DIALYSIS ONLY) As Ordered ONE (15:46)
[2019-02-24] MEDS ORDERED: ISOVUE-300 61% 100ML VIAL (Q9967) As Ordered ONE (15:46)
[2019-02-24] MEDS ORDERED: LIDOCAINE 2% MDV 20 ML VIAL As Ordered ONE (15:46)
[2019-02-24] MEDS ORDERED: diphenhydrAMINE INJ 50MG/ML VIAL (J1200) As Ordered ONE (15:48)
--- NOTE | 2019-02-24 17:35 | ROOPDOC ---
[facility] Report Of Operation Report of Operation DATE OF PROCEDURE: 02/24/19 PREPROCEDURE DIAGNOSES: Right lower extremity popliteal artery thrombosis status post placement of TPA thrombolysis catheter POSTPROCEDURE DIAGNOSES: Same PROCEDURE: 1. Planned repeat arteriogram right lower extremity 2. Continuation TPA thrombolysis catheter SURGEON: Alejandro Hardy MD ANESTHESIA: None INDICATION FOR PROCEDURE: Very pleasant 44-year-old gentleman transferred from an outside hospital with acute right cold leg secondary to popliteal artery occlusion. No popliteal aneurysm noted on CT scan. There is some posterior calcific plaque on CT suggesting that this may be chronic PVD from heavy tobacco use that acutely thrombosed. The patient underwent right lower extremity arteriogram with placement of a TPA lysis catheter early this morning. His perfusion to his foot did improve throughout the day, and since he has a history of significant alcohol consumption, we like to stop the tPA as soon as we are able to minimize his risk for possible GI bleed. So far, the patient has not had any bleeding complications or issues. Risks benefits and alternatives to a planned repeat imaging of his right lower extremity with arteriogram, possible continuation of the tPA thrombolysis, possible discontinuation of the tPA thrombolysis, possible angioplasty, possible stent were explained to the patient and he was agreeable to proceed. Informed consent was obtained. INTERPRETATION: 1. There is minimal improvement in flow through the popliteal artery. It is unclear if this is due to ongoing thrombus or due to significant plaque buildup. I think it is worthwhile to continue thrombolysis overnight as long as the patient's labs remained stable and he does not have any bleeding issues. If it is more chronic thrombus, hopefully it will clear by morning. If it is simply plaque, we will try to treat it with angioplasty plus or minus stenting tomorrow. We prefer not to stent the popliteal artery if at all able, but we will see how things look tomorrow and decide on the best treatment option. There is always still an option for an open intervention with an above to below knee popliteal artery bypass, but we prefer to provide the patient with a percutaneous option if possible. PROCEDURE: The patient was brought to the angiographic suite in stable condition. He was placed supine on the fluoroscopic table. We sterilely access to sheath and flushed with saline. A timeout was performed. There was no manipulation of the dressings over the sheath in the catheter, we left these intact case we needed to continue thrombolysis. We performed a sterile contrast injection through the sheath to evaluate the right lower extremity. The thrombolysis catheter is still in good position through the popliteal artery down to the tibial peroneal trunk and the peroneal artery, and there is minimal flow through the area of occlusion. The catheter appears to be taking up most of the newly patent area. There is still runoff through all 3 tibials due to collateral circulation from the knee. This concluded the procedure. The sheath was flushed and the heparin continued through the sheath at 400 units hour and the tPA continued through the catheter at 1 mg an hour (25 mL an hour.) We will plan to bring the patient back tomorrow for another check and possible intervention. ESTIMATED BLOOD LOSS: Approximately 0 mL. COMPLICATIONS: None. ALEJANDRO HARDY MD February 24, 2019 17:35
[2019-02-24 19:12] LABS: HEMATOCRIT 40.1 % (42.0-52.0); HEMOGLOBIN 13.5 g/dl (13.5-17.5); MEAN CORPUSCULAR HEMOGLOBIN 31.3 pg (27.0-33.0); MEAN CORPUSCULAR HGB CONC 33.7 g/dl (32.0-36.5); MEAN CORPUSCULAR VOLUME 92.8 fl (80.0-96.0); RED BLOOD COUNT 4.32 10^6/uL (4.30-6.10); WHITE BLOOD COUNT 6.1 10^3/uL (4.0-10.0)
[2019-02-24 19:21] LABS: PARTIAL THROMBOPLASTIN TIME 34.5 SECONDS (25.4-37.6)
[2019-02-24 20:20] LABS: PLATELET COUNT, AUTOMATED 98 10^3/uL (150-450)
[2019-02-25] VITALS (31 sets, daily range): BP systolic 89–169; BP diastolic 54–100; O2SAT 97–100
[2019-02-25] MEDS: oxyCODONE 5MG TAB PO PRN (00:05)
[2019-02-25] MEDS: NS IV SCH (00:13)
[2019-02-25] MEDS: ALTEPLASE RECOMBINANT IV SCH (00:13)
[2019-02-25 00:59] LABS: HEMATOCRIT 38.8 % (42.0-52.0); HEMOGLOBIN 13.4 g/dl (13.5-17.5); MEAN CORPUSCULAR HEMOGLOBIN 31.9 pg (27.0-33.0); MEAN CORPUSCULAR HGB CONC 34.5 g/dl (32.0-36.5); MEAN CORPUSCULAR VOLUME 92.4 fl (80.0-96.0); WHITE BLOOD COUNT 5.4 10^3/uL (4.0-10.0)
[2019-02-25 01:05] LABS: PLATELET COUNT, AUTOMATED 93 10^3/uL (150-450)
[2019-02-25 01:09] LABS: PARTIAL THROMBOPLASTIN TIME 36.8 SECONDS (25.4-37.6)
[2019-02-25] MEDS: ONDANSETRON 4MG/2ML VIAL (J2405) IV PRN (03:13)
[2019-02-25] MEDS ORDERED: diazePAM 5 MG TAB As Ordered ONE (03:59)
[2019-02-25] MEDS: diazePAM 5 MG TAB PO PRN (04:03)
[2019-02-25] MEDS: HYDROMORPHONE HCL 0.5 MG/ 0.5 ML SYRINGE (J1170 PER 1) IV PRN ×2 (04:22→06:50)
[2019-02-25] MEDS: OXAZEPAM 15 MG CAP PO SCH ×3 (06:11→21:06)
[2019-02-25] MEDS: HEPARIN DRIP 25,000 UNITS in APPROPRIATE DILUENT 1 EA IV SCH (06:52)
--- NOTE | 2019-02-25 07:08 | IPNPDOC ---
Date Seen The patient was seen on 02/25/19. Progress Note Pt seen and examined this morning. He was doing very well until about 5am when he began having 10/10 pain in his RLE, and the pain was so bad he vomited. He had palpable pulses RLE DP/PT before this, but then after it became increasingly more difficult to doppler signals. I came in to check him, and he has a very tight calf, and I feel he has an acute compartment syndrome causing neurovascular compromise. He can wiggle his toes, but it is painful, and his sensation is slightly diminished. We discussed the risks, benefits and alternatives to an urgent RLE 4 compartment fasciotomy. He is agreeable to proceed. We will have to stop his TPA after this (he will have significant bleeding from the fasciotomies otherwise, so we also will need to do a quick arteriogram through the existing thrombolysis sheath access and possibly an angioplasty/stent to prevent re-thrombosis once the TPA is discontinued. The patient understands the risks, benefits and alternatives to this as well. He is agreeable to proceed. Informed consent obtained. He was NPO except water since 8pm. He had water overnight, but had a large emesis at ~0500 and only a few sips of water after that. At this time, he has a some bruising around his left groin access site also, so I would prefer to stop the TPA before that gets significantly worse also. We will proceed urgently to the OR now. VS, I&O, 24H, Nando Vital Signs/I&O Vital Signs Date Time Temp Pulse Resp B/P (MAP) Pulse Ox O2 Delivery O2 Flow Rate FiO2 02/25/19 06:50 20 02/25/19 06:00 90 169/100 (123) 99 2.0 02/25/19 04:00 100.5 I&O- Last 24 Hours up to 6 AM 02/25/19 06:00 Intake Total 5494.5 ml Output Total 4355 ml Balance 1139.5 ml Laboratory Data 24H LABS Laboratory Tests 2 02/24/19 07:02: Fibrinogen 289 02/24/19 12:45: Fibrinogen 304, Nucleated Red Blood Cells % (auto) 0.0, Activated Partial Thromboplast Time 31.1 02/24/19 18:51: Fibrinogen 276, Nucleated Red Blood Cells % (auto) 0.0, Activated Partial Thromboplast Time 34.5, Immature Platelet Fraction 6.2 02/25/19 00:52: Fibrinogen 276, Nucleated Red Blood Cells % (auto) 0.0, Activated Partial Thromboplast Time 36.8 CBC/BMP Laboratory Tests 02/24/19 12:45 Red Blood Count 4.24 L, Mean Corpuscular Volume 93.4, Mean Corpuscular Hemoglobin 32.1, Mean Corpuscular Hemoglobin Concent 34.3, Red Cell Distribution Width 13.7 02/24/19 18:51 Red Blood Count 4.32, Mean Corpuscular Volume 92.8, Mean Corpuscular Hemoglobin 31.3, Mean Corpuscular Hemoglobin Concent 33.7, Red Cell Distribution Width 13.5 02/25/19 00:52 Red Blood Count 4.20 L, Mean Corpuscular Volume 92.4, Mean Corpuscular Hemoglobin 31.9, Mean Corpuscular Hemoglobin Concent 34.5, Red Cell Distribution Width 13.4 ALEJANDRO HARVEY MD February 25, 2019 07:08
[2019-02-25 07:13] LABS: HEMATOCRIT 36.9 % (42.0-52.0); HEMOGLOBIN 12.8 g/dl (13.5-17.5); MEAN CORPUSCULAR HEMOGLOBIN 31.8 pg (27.0-33.0); MEAN CORPUSCULAR HGB CONC 34.7 g/dl (32.0-36.5); MEAN CORPUSCULAR VOLUME 91.6 fl (80.0-96.0); PLATELET COUNT, AUTOMATED 102 10^3/uL (150-450); RED BLOOD COUNT 4.03 10^6/uL (4.30-6.10); WHITE BLOOD COUNT 8.1 10^3/uL (4.0-10.0)
[2019-02-25] MEDS ORDERED: MIDAZOLAM INJ 2 MG/2 ML VIAL (J2250) As Ordered ONE (07:16)
[2019-02-25] MEDS ORDERED: ROCURONIUM BROMIDE 50 MG/5 ML VIAL As Ordered ONE (07:17)
[2019-02-25] MEDS ORDERED: dexameTHASONE 4 MG/ML 1ML VIAL (J1100) As Ordered ONE (07:17)
[2019-02-25] MEDS ORDERED: LIDOCAINE 2% INJ 100 MG/5 ML SDV (FOR ANES.) As Ordered ONE ×2 (07:17→08:32)
[2019-02-25] MEDS ORDERED: ONDANSETRON 4MG/2ML VIAL (J2405) As Ordered ONE (07:17)
[2019-02-25] MEDS ORDERED: fentaNYL 250 MCG/5 ML INJECTION (J3010) As Ordered ONE (07:17)
[2019-02-25] MEDS ORDERED: PROPOFOL 200 MG/20 ML VIAL As Ordered ONE ×2 (07:17→08:35)
[2019-02-25 07:22] LABS: PARTIAL THROMBOPLASTIN TIME 35.8 SECONDS (25.4-37.6)
[2019-02-25] MEDS ORDERED: HEPARIN SOD (PORCINE) 5000 UNITS/ML VIAL As Ordered ONE ×2 (07:24→08:38)
[2019-02-25] MEDS ORDERED: METOCLOPRAMIDE INJ 10MG/2ML VIAL (J2765) As Ordered ONE (07:24)
[2019-02-25] MEDS ORDERED: CONRAY-60 60% 50ML VIAL (Q9961) As Ordered ONE ×2 (07:24→08:54)
[2019-02-25 07:41] LABS: ALT/SGPT 86 U/L (12-78); BILIRUBIN,TOTAL 0.8 MG/DL (0.2-1.0); BLOOD UREA NITROGEN 7 MG/DL (7-18); CARBON DIOXIDE LEVEL 20 MEQ/L (21-32); CHLORIDE LEVEL 96 MEQ/L (98-107); CPK CREATINE PHOSPHOKINASE 199 U/L (39-308); CREATININE FOR GFR 0.66 MG/DL (0.70-1.30); GLOMERULAR FILTRATION RATE > 60.0 (>60); GLUCOSE, FASTING 133 MG/DL (70-100); MAGNESIUM LEVEL 1.6 MG/DL (1.8-2.4); POTASSIUM SERUM 3.7 MEQ/L (3.5-5.1); SODIUM LEVEL 129 MEQ/L (136-145); TOTAL PROTEIN 6.7 GM/DL (6.4-8.2)
[2019-02-25] MEDS ORDERED: ceFAZolin 2 GM/D5W 50 ML IV BAG (J0690 PER 500MG) As Ordered ONE (08:11)
[2019-02-25] MEDS ORDERED: KETAMINE HCL 200 MG/20 ML VIAL As Ordered ONE (08:11)
[2019-02-25] MEDS ORDERED: SUCCINYLCHOLINE 100 MG/5 ML SYRINGE (J0330) As Ordered ONE (08:20)
[2019-02-25] MEDS ORDERED: PHENYLephrine HCL 500 MCG/5 ML (100MCG/ML) SYRINGE (J2370) As Ordered ONE (08:20)
[2019-02-25] MEDS ORDERED: BUPIVACAINE/EPIN 0.5% 30 ML VIAL As Ordered ONE (08:25)
--- NOTE | 2019-02-25 08:38 | ECHO ---
DATE OF PROCEDURE: 02/24/2019 REFERRING PHYSICIAN: Jaden Rodriguez. INDICATION: Vascular occlusion. HEIGHT: 163 cm. WEIGHT: 79 kg. DIMENSIONS: IVS: 0.8 LV: 4.0 LVPW: 0.8 LA: 3.1 Aorta: 3.8 IVC: 1.4 Mitral E wave velocity: 78 A wave: 85 E prime septal: 7.6 E prime lateral: 9.8 FINDINGS: The study is of fair technical quality with somewhat limited visualization. The patient is in sinus rhythm. Left ventricle is normal size and normal systolic function, I estimate LVEF around 70%. No segmental wall motion abnormalities are appreciated. Right ventricle appears normal. Both atria appear normal. All four cardiac valves were reasonably well seen and appear normal. No pericardial effusion is present. Inferior vena cava is normal size and appropriately collapses with respiration indicative of normal central venous pressure. Aortic root is borderline dilated at 3.8 cm. Aortic arch and abdominal aorta appear normal. Doppler interrogation reveals competent aortic valve. Also mitral tricuspid and pulmonic valves are free of significant stenosis or insufficiency. Mitral inflow pattern and tissue Doppler imaging of mitral annulus reveal grade 1 diastolic dysfunction. CONCLUSIONS: 1. Study is of fair technical quality. 2. Normal LV size with normal LV systolic function and grade 1 diastolic dysfunction. 3. No significant valvular disease. 4. Likely normal central venous pressure. 5. Unable to estimate pulmonary artery pressure. 6. Borderline dilated aortic root 3.8 cm. COMMENT: SBE prophylaxis is not recommended.
[2019-02-25] MEDS ORDERED: CALCIUM CHLORIDE 10% 1 GM/10 ML SYR As Ordered ONE (08:53)
[2019-02-25] MEDS: DOCUSATE SODIUM 100 MG CAP PO SCH ×2 (09:00→20:06)
[2019-02-25] MEDS ORDERED: fentaNYL 100 MCG/2 ML INJECTION (J3010) IV PRN (11:00)
[2019-02-25] MEDS ORDERED: LR 1,000 ML IV SCH (11:00)
[2019-02-25] MEDS ORDERED: METOPROLOL 5 MG/5 ML VIAL As Ordered ONE (11:18)
[2019-02-25] MEDS ORDERED: METOPROLOL 5 MG/5 ML VIAL IV ONE (11:30)
[2019-02-25] MEDS ORDERED: HEPARIN SOD (PORCINE) 5000 UNITS/ML VIAL IV PRN ×2 (13:00→13:30)
[2019-02-25] MEDS ORDERED: HEPARIN DRIP 25,000 UNITS in APPROPRIATE DILUENT 1 EA IV SCH (13:14)
[2019-02-25 13:27] LABS: HEMATOCRIT 25.3 % (42.0-52.0); MEAN CORPUSCULAR HEMOGLOBIN 32.2 pg (27.0-33.0); MEAN CORPUSCULAR VOLUME 94.8 fl (80.0-96.0); PLATELET COUNT, AUTOMATED 111 10^3/uL (150-450); RED BLOOD COUNT 2.67 10^6/uL (4.30-6.10); WHITE BLOOD COUNT 6.3 10^3/uL (4.0-10.0)
[2019-02-25 13:30] LABS: HEMOGLOBIN 8.6 g/dl (13.5-17.5)
[2019-02-25] MEDS: FOLIC ACID 1 MG TAB PO SCH (13:34)
[2019-02-25] MEDS: ATORVASTATIN 20 MG TAB PO SCH (13:34)
[2019-02-25] MEDS: MULTIVITAMINS/MINERALS THERAP 1 TAB PO SCH (13:34)
[2019-02-25] MEDS: THIAMINE 100 MG TAB PO SCH ×2 (13:34→20:06)
[2019-02-25] MEDS: KCL 40MEQ in NS 1000ML 1,000 ML IV SCH (13:34)
[2019-02-25] MEDS: PANTOPRAZOLE 40MG INJ (PROTONIX) (C9113) IV SCH (13:35)
--- NOTE | 2019-02-25 14:35 | ROOPDOC ---
[facility] Report Of Operation Report of Operation DATE OF PROCEDURE: 02/25/19 PREPROCEDURE DIAGNOSES: 1. Right calf compartment syndrome 2. Chronic popliteal artery stenosis with acute thrombosis status post TPA lysis catheter placement POSTPROCEDURE DIAGNOSES: Same PROCEDURE: 1. 4 compartment fasciotomy right calf 2. Right lower extremity arteriogram 3. Angioplasty right popliteal artery and tibioperoneal trunk with 4 x 100 [place] balloon 4. Angioplasty right popliteal artery with 5 x 100 [place] balloon 5. Angioplasty anterior tibial artery, peroneal artery, posterior tibial artery with 3 x 200 [place] balloon 6. Completion arteriograms 7. Minx closure left common femoral artery SURGEON: Alejandro Hardy MD ANESTHESIA: Gen. endotracheal anesthesia and local. INDICATION FOR PROCEDURE: This is a very pleasant 44-year-old gentleman with acute occlusion of a chronically stenosed right popliteal artery. He underwent placement of the thrombolysis catheter early Sunday, and upon reimaging Sunday we noted ongoing stenosis versus thrombosis in the popliteal artery. We felt it may be beneficial to run the TPA a bit longer and see if further trouble lysis could be achieved. The patient did well in the early ng and night, with better perfusion and palpable pulses, but then deteriorated in the machine hostler today with acute pain in the right calf, diminished pulses, and paresthesias. Upon this description from the nurse, he came in to see the patient suspecting compartment syndrome. When I arrived at the bedside in the ICU, the patient's was tight, his foot was pale, and he in fact did have diminished perfusion. The diagnosis of compartment syndrome was made based on this exam, and we discussed the risks benefits and alternatives to urgent fasciotomy. He was agreeable to proceed. Once the incisions are made, we could no longer proceed with thrombolysis. Therefore I also discussed with him from removing the thrombolysis catheter and attempting angioplasty in the popliteal and tibial vessels to improve flow to the foot. He was also agreeable for this as well and the associated arteriograms. Informed consent was obtained for urgent intervention. INTERPRETATION: 1. After over 24 hours as thrombolysis, there was a narrow channel of perfusion through a heavily stenotic popliteal artery with flow into the origin of all 3 tibials, but the main runoff to the foot was through the peroneal artery only. There are midportion occlusions in both the anterior tibial and posterior tibial arteries. 2. After repeated angioplasties in the popliteal artery, there is some heavy plaque residual stenosis. No dissection or extravasation is noted. We decided not to place a stent at this time due to the location behind the knee and because we do not have a self expanding 5 mm stent in our stock at this time. 3. Tibial perfusion was extremely challenging. We were able to cross into each of 3 vessels and angioplasty them, but following angioplasty, the other 2 vessels would frequently be occluded. We did repeated angioplasties in the anterior tibial, posterior tibial, and peroneal arteries. However, despite aggressive attempts, we were only able to maintain perfusion in 2 vessels at a time. Following a long attempted three-vessel perfusion, we ended the case with posterior tibial and peroneal artery perfusion to the foot. The anterior tibial artery reconstituted distally. The peroneal artery perfused the DP along with the reconstituted AT. The posterior tibial artery was patent around to the yung ntar arteries in the foot. PROCEDURE: The patient was brought to the operating room in stable condition and placed supine on the OR table. General anesthesia and antibiotics were administered without consultation. The catheter and sheath in the left groin and his left groin were prepped and draped in a sterile fashion. We adjusted the drapes of the right lower extremity was freely from the knee to the toe and this was prepped in a circumferential fashion and a U drape was placed. This provided dual access to the right lower extremity and the left groin sheath and trouble lysis catheter. The TPA was stopped prior to this prepping. A timeout was performed. An incision was made over the fibula and carried down carefully through the subcutaneous tissues Bovie cautery down to the fascia met scissor was used to incise the fascia the length of the cath from the ankle to the knee along the anterior compartment as well as the lateral compartment. There is immediate bulging of muscle, however the muscle was viable and contracted with Bovie. We then made an incision centimeter anterior to saphenous vein on the medial right calf and carried this down through subcutaneous tissue with Bovie cautery. Superficial compartment was released with the Metzenbaum scissor and then we dissected deeper within the compartment to release the deep compartment. Bovie cautery was used for hemostasis. We did keep a heparin drip running during this process and the patient did have some oozing, but we were able to control it topically was Surgicel lap pads and a loose Kerlix wrap. We then flushed the sheath and our thrombolysis catheter with heparinized saline. 5000 units of heparin additional to the drip was given by her anesthesia colleagues and allowed to circulate. A Glidewire was passed through the thrombolysis catheter into the peroneal artery under fluoroscopic guidance. Over the wire, we angioplasty first with a 4 x 100 [place] balloon. This was inflated from the popliteal artery across the tibioperoneal trunk. Three-minute inflations low atmospheres was performed. Arteriogram following this confirmed some improvement flow in the popliteal artery, but it was still very irregular with heavy calcified plaque. We then exchanged the balloon for 5 x 100 [place] balloon and again performed a prolonged three-minute inflation in the popliteal artery only. There was a mild improvement following this angioplasty, but the heavy plaque was resistant to balloon angioplasty. There is no dissection or extravasation, but the wall of the artery was still a bit irregular. Nevertheless, the flow had significantly improved from his baseline. We then passed the wire into the anterior tibial artery and angioplasty across the length of the artery with a 3 x 200 [place] balloon. After 2 three-minute angioplasties, there was a dramatic improvement flow through the anterior tibial artery, but we did not have good flow through the peroneal and posterior tibial artery. We then placed the wire into the peroneal artery and angioplastied with a 3 x 200 balloon for extended three-minute inflations as well. This provided an improvement flow through the peroneal, but we had no flow through the posterior tibial artery. We then advance her wire into the posterior tibial artery also way to the foot and angioplastied sequentially with a 3 x 200 balloon for three- minute inflations and had a dramatic flow improvement through the posterior tibial artery with no flow in the peroneal or anterior tibial artery. We continue to try to improve flow in all 3 vessels but this proved extremely difficult. The patient was having some proximal areas of thrombosis versus plaque embolization from the above popliteal. An additional 3000 units of heparin was given by anesthesia at this point in addition to the ongoing heparin drip. We again angioplastied each of the vessels, but her final runoff was through the peroneal and posterior tibial arteries to the ankle. I am concerned that he has some residual thrombus that is being passed back and forth between the tibials, but we can no longer utilize TPA due to the open fasciotomy incisions and muscle belly oozing. Therefore, I feel at this time we may have met the point of diminishing returns. If we continue trying to angioplasty to the vessels, we loose perfusion to one of the others. We concluded her procedure at this point. It is possible that this is not an and solution for the patient and he may require stenting of the popliteal artery, or even possibly an above- knee to distal tibial bypass. We will see how he does with the heparin drip over the next 24 hours and make a decision from there. We then exchanged the 45 cm sheath over the wire for short 6 [place] sheath and flushed the sheath with saline. We deployed a minx closure device with initial good hemostasis. However, all the ice cream freezer assistant was holding pressure, he noted it was difficult to maintain hemostasis. Eventually the patient had good hemostasis and sterile dressings w ere applied. The fasciotomy wounds were copiously irrigated with saline. There was 1 area of brisk arterial bleeding on the medial calf muscle which was suture ligated with a Vicryl suture. Bovie cautery was used for improved hemostasis and the wounds were again irrigated. Xeroform, saline damp to dry, kerlix, Giuseppe wraps were used to dress the right lower extremity. Good hemostasis was noted. The patient was then next abated and taken to PACU in stable condition. ESTIMATED BLOOD LOSS: Approximately 100 mL. COMPLICATIONS: None. DRAINS: None. SPECIMENS: None. PLAN: We will to continue the heparin drip for now and see how the patient does with perfusion over the next 24 hours. I am concerned for rethrombosis of the popliteal artery, and I'm concerned for ongoing problems with tibial perfusion. I was hoping we would have a better response from the TPA thrombolysis, but due to the chronicity of his popliteal vascular stenosis in tibial disease, we had a limited improvement with TPA. The angioplasty was initially successful today and providing flow through the peroneal and posterior tibial artery, but the longevity of this perfusion is questionable. We may need to evaluate the patient for possible above-knee to below-knee bypass versus above-knee to distal bypass. We will continue to monitor his perfusion closely. The management of the fasciotomy wounds will depend on the final decision for further intervention. If we are going to provide additional revascularization, we will not plan on closing the fasciotomies until we see how he responds to additional reperfusion. At that point he may be able to have them close primarily versus wound VAC and skin grafting at a later date. ALEJANDRO HARDY MD February 25, 2019 14:35
[2019-02-25] MEDS: amLODIPine 10 MG TAB PO SCH (14:47)
[2019-02-25] MEDS ORDERED: NS 500 ML IV ONE ×2 (17:15→19:15)
--- NOTE | 2019-02-25 19:04 | IPNPDOC ---
Subjective Date Seen The patient was seen on 02/25/19. Subjective Chief Complaint/HPI Mr. Pride had quite a busy day. Early this morning he was noted to have increased leg pain and was found to have a compartment syndrome. His taken urgently to the OR where fasciotomy was performed. Because of these necessity of the surgical procedure he could no longer have continued TPA administration, and so angioplasty was done. According to the operative note multiple attempts were made to restore three-vessel flow below the knee, however, ultimately this was unsuccessful. He may need further bypass. The patient reports that his leg is certainly sore, but already feels better than he did prior to the procedure. Constitutional: Denies: Chills, Fever Pulmonary: Denies: Dyspnea, Cough Cardiovascular: Denies: Chest Pain, Palpitations Musculoskeletal: Reports: Leg Pain Psych: Reports: Mood Normal Objective Physical Examination General Exam: Positive: Alert, Cooperative, No Acute Distress Eye Exam: Positive: PERRLA, Conjunctiva & lids normal; Negative: Sclera icteric ENT Exam: Positive: Atraumatic, Mucous membr. moist/pink Neck Exam: Positive: Supple; Negative: Lymphadenopathy Chest Exam: Positive: Clear to auscultation, Normal air movement Heart Exam: Positive: Rate Normal, Regular Rhythm Abdomen Exam: Positive: Normal bowel sounds, Soft; Negative: Tenderness Extremity Exam: Positive: Other (his right foot is warm but with 2-3 mm of edema. The whole right leg is wrapped carefully.) Skin Exam: Positive: Nl turgor and temperature Neuro Exam: Positive: Normal Speech Psych Exam: Positive: Mental status NL, Mood NL, Anxiety, Oriented x 3 A-FIB/CHADSVASC A-FIB History Current/History of A-Fib/PAF?: No Assessment /Plan Problems (1) Compartment syndrome of lower extremity Status: Acute Problem Text: He was taken urgently to the OR today for fasciotomy. This seems to have gone well. We'll defer further management to vascular surgery. (2) Arterial embolism of leg Status: Acute Problem Text: The TPA had to be stopped because of the surgery. They said multiple times angioplasty which was somewhat successful. He still may need byp ass surgery to restore full flow to his lower extremity. We'll defer this management to vascular surgery. (3) Alcohol withdrawal Status: Acute Problem Text: He remains stable on Oxazepam, ativan prn. CIWA protocol in place. (4) Alcoholism Status: Chronic Problem Text: 20+ year drinker. CIWA protocol and Oxazepam/Lorazepam in place. (5) Elevated LFTs Problem Text: His ultrasound showed mild fatty infiltration, probably alcoholic steatohepatitis. His transaminitis is beginning to improve with alcohol abstinence. (6) Hypertension Status: Chronic Response to Treatment: Stable Problem Text: Continue Amlodipine. (7) Smoker Status: Chronic Problem Text: Chronic smoker: 1ppd for 20+ years. Unable to place Nicotine patch due to recent TPA treatment. Plan/VTE VTE Prophylaxis Ordered?: Yes VTE Exclusion Mechanical Proph: Patient on IV Heparin VTE Exclusion Pharmacological: IV Heparin Therapy VS, I&O, 24H, Fishbone Vital Signs/I&O Vital Signs Date Time Temp Pulse Resp B/P (MAP) Pulse Ox O2 Delivery O2 Flow Rate FiO2 02/25/19 16:00 98.3 118 18 100/63 (75) 100 02/25/19 16:00 Room Air I&O- Last 24 Hours up to 6 AM 02/25/19 06:00 Intake Total 5134.5 ml Output Total 4355 ml Balance 779.5 ml Laboratory Data 24H LABS Laboratory Tests 2 02/25/19 00:52: Nucleated Red Blood Cells % (auto) 0.0, Activated Partial Thromboplast Time 36.8, Fibrinogen 276 02/25/19 06:50: Nucleated Red Blood Cells % (auto) 0.0, Activated Partial Thromboplast Time 35.8, Fibrinogen 253, Anion Gap 13, Glomerular Filtration Rate > 60.0, Blood Urea Nitrogen 7, Creatinine 0.66L, Sodium Level 129#L, Potassium Level 3.7, Chloride Level 96L, Carbon Dioxide Level 20L, Calcium Level 8.0L, Aspartate Amino Transf (AST/SGOT) 44H, Alanine Aminotransferase (ALT/SGPT) 86H, Total Creatine Kinase 199, Alkaline Phosphatase 56, Total Bilirubin 0.8, Total Protein 6.7, Albumin 3.0L, Magnesium Level 1.6L, Albumin/Globulin Ratio 0.81L 02/25/19 13:10: Activated Partial Thromboplast Time 217.6*H 02/25/19 13:13: Nucleated Red Blood Cells % (auto) 0.0 02/25/19 18:54: CBC/BMP Laboratory Tests 02/25/19 00:52 Red Blood Count 4.20 L, Mean Corpuscular Volume 92.4, Mean Corpuscular Hemoglobin 31.9, Mean Corpuscular Hemoglobin Concent 34.5, Red Cell Distribution Width 13.4 02/25/19 06:50 Red Blood Count 4.03 L, Mean Corpuscular Volume 91.6, Mean Corpuscular Hemoglobin 31.8, Mean Corpuscular Hemoglobin Concent 34.7, Red Cell Distribution Width 13.0, Calcium Level 8.0 L, Aspartate Amino Transf (AST/SGOT) 44 H, Alanine Aminotransferase (ALT/SGPT) 86 H, Total Creatine Kinase 199, Alkaline Phosphatase 56, Total Bilirubin 0.8, Total Protein 6.7, Albumin 3.0 L 02/25/19 13:13 Red Blood Count 2.67 L, Mean Corpuscular Volume 94.8, Mean Corpuscular Hemoglobin 32.2, Mean Corpuscular Hemoglobin Concent 34.0, Red Cell Distribution Width 13.3 Barry Vaz MD February 25, 2019 7:04 pm
[2019-02-25 19:21] LABS: HEMATOCRIT 21.7 % (42.0-52.0); HEMOGLOBIN 7.4 g/dl (13.5-17.5); MEAN CORPUSCULAR HEMOGLOBIN 32.2 pg (27.0-33.0); MEAN CORPUSCULAR HGB CONC 34.1 g/dl (32.0-36.5); MEAN CORPUSCULAR VOLUME 94.3 fl (80.0-96.0); WHITE BLOOD COUNT 10.6 10^3/uL (4.0-10.0)
[2019-02-25 19:28] LABS: PLATELET COUNT, AUTOMATED 88 10^3/uL (150-450)
[2019-02-25 19:32] LABS: BLOOD UREA NITROGEN 13 MG/DL (7-18); CALCIUM LEVEL 7.7 MG/DL (8.5-10.1); CARBON DIOXIDE LEVEL 24 MEQ/L (21-32); CHLORIDE LEVEL 100 MEQ/L (98-107); CREATININE FOR GFR 1.02 MG/DL (0.70-1.30); GLOMERULAR FILTRATION RATE > 60.0 (>60); GLUCOSE, FASTING 151 MG/DL (70-100); MAGNESIUM LEVEL 1.5 MG/DL (1.8-2.4); POTASSIUM SERUM 4.7 MEQ/L (3.5-5.1); SODIUM LEVEL 131 MEQ/L (136-145)
[2019-02-25] MEDS ORDERED: MAG SULF 1GM/100ML (MAG RUN) 1 GM in APPROPRIATE DILUENT 1 EA IV ONE ×2 (20:00→21:00)
[2019-02-25] MEDS: NS 1,000 ML IV SCH (20:07)
--- NOTE | 2019-02-25 20:11 | IPNPDOC ---
Date Seen The patient was seen on 02/25/19. Progress Note POSTOP CHECK Pt seen and examined. Postop, the PACU found he had started bleeding from his access site left groin x2 after the patient repositioned himself in the bed. They held pressure each time for 15 min with hemostasis re-established both times. He is on considerable anticoagulation and straining will tend to result in bleeding, thus I discussed this with the pt, and he says he tends to forget to keep his leg straight. He has significant bruising left groin at this point, and Hgb is 7.4 now, so he probably had more acute blood loss with these episodes than I understood. No ongoing blood loss noted. His RLE fasciotomy dressings are c/d/i. Will give 1 unit PRBC for acute postop blood loss anemia, hypotension, tacchycardia. We did give 2 (500cc NS) IVF boluses earlier due to tapering UO, SBP 80s, HR 110-120. This helped improve BP, HR, UO, but I think the PRBC will also help. He has low MG, and this was replaced. His K+ is high due to IVF with K+, and I changed him back to NS and increased the rate to 100cc/hr. His Cr is up a little, not unexpected with increased CK and hypotension, so we will try to keep SBP >100 to help maintain renal perfusion. Will recheck CK in the a.m. As far as his RLE perfusion, he says his leg feels significantly better after fasciotomies. He is wiggling his toes, full ankle ROM noted, sensation intact. His perfusion is adequate- foot is perfused and warm with 2-3 sec cap refill, but I can only doppler PT signal, and have not been able to find a DP signal yet. Unclear if this perfusion is adequate senior care, but we will see how things go over the next 24 hours. Continue heparin for now, but if platelets continue to drop, may have to hold it. No dramatic drop in platelets noted (not worried about HIT at this point) but some blood loss thrombocytopenia is noted. Will follow this closely. VS, I&O, 24H, Fishbone Vital Signs/I&O Vital Signs Date Time Temp Pulse Resp B/P (MAP) Pulse Ox O2 Delivery O2 Flow Rate FiO2 02/25/19 19:00 100 Room Air 5/14/19 19:00 112 101/68 (79) 02/25/19 16:00 98.3 18 I&O- Last 24 Hours up to 6 AM 02/25/19 09:00 Intake Total 3984.5 ml Output Total 3630 ml Balance 354.5 ml Laboratory Data 24H LABS Laboratory Tests 2 02/25/19 00:52: Nucleated Red Blood Cells % (auto) 0.0, Activated Partial Thromboplast Time 36.8, Fibrinogen 276 02/25/19 06:50: Nucleated Red Blood Cells % (auto) 0.0, Activated Partial Thromboplast Time 35.8, Fibrinogen 253, Anion Gap 13, Glomerular Filtration Rate > 60.0, Blood Urea Nitrogen 7, Creatinine 0.66L, Sodium Level 129#L, Potassium Level 3.7, Chloride Level 96L, Carbon Dioxide Level 20L, Calcium Level 8.0L, Aspartate Amino Transf (AST/SGOT) 44H, Alanine Aminotransferase (ALT/SGPT) 86H, Total Creatine Kinase 199, Alkaline Phosphatase 56, Total Bilirubin 0.8, Total Protein 6.7, Albumin 3.0L, Magnesium Level 1.6L, Albumin/Globulin Ratio 0.81L 02/25/19 13:10: Activated Partial Thromboplast Time 217.6*H 02/25/19 13:13: Nucleated Red Blood Cells % (auto) 0.0 02/25/19 18:54: Nucleated Red Blood Cells % (auto) 0.0, Immature Platelet Fraction 12.1H, Anion Gap 7L, Glomerular Filtration Rate > 60.0, Blood Urea Nitrogen 13#, Creatinine 1.02#, Sodium Level 131L, Potassium Level 4.7#, Chloride Level 100, Carbon Dioxide Level 24, Calcium Level 7.7L, Magnesium Level 1.5L CBC/BMP Laboratory Tests 02/25/19 00:52 Red Blood Count 4.20 L, Mean Corpuscular Volume 92.4, Mean Corpuscular Hemoglobin 31.9, Mean Corpuscular Hemoglobin Concent 34.5, Red Cell Distribution Width 13.4 02/25/19 06:50 Red Blood Count 4.03 L, Mean Corpuscular Volume 91.6, Mean Corpuscular Hemoglobin 31.8, Mean Corpuscular Hemoglobin Concent 34.7, Red Cell Distribution Width 13.0, Calcium Level 8.0 L, Aspartate Amino Transf (AST/SGOT) 44 H, Alanine Aminotransferase (ALT/SGPT) 86 H, Total Creatine Kinase 199, Alkaline Phosphatase 56, Total Bilirubin 0.8, Total Protein 6.7, Albumin 3.0 L 02/25/19 13:13 Red Blood Count 2.67 L, Mean Corpuscular Volume 94.8, Mean Corpuscular Hem oglobin 32.2, Mean Corpuscular Hemoglobin Concent 34.0, Red Cell Distribution Width 13.3 02/25/19 18:54 Red Blood Count 2.30 L, Mean Corpuscular Volume 94.3, Mean Corpuscular He moglobin 32.2, Mean Corpuscular Hemoglobin Concent 34.1, Red Cell Distribution Width 13.2, Calcium Level 7.7 L ALEJANDRO HARVEY MD February 25, 2019 20:11
[2019-02-26] VITALS (34 sets, daily range): BP systolic 101–145; BP diastolic 55–86; O2SAT 93–98
[2019-02-26] MEDS: oxyCODONE 5MG TAB PO PRN ×3 (04:13→13:28)
[2019-02-26 05:08] LABS: HEMATOCRIT 20.8 % (42.0-52.0); MEAN CORPUSCULAR HEMOGLOBIN 29.7 pg (27.0-33.0); MEAN CORPUSCULAR HGB CONC 33.7 g/dl (32.0-36.5); MEAN CORPUSCULAR VOLUME 88.1 fl (80.0-96.0); PLATELET COUNT, AUTOMATED 94 10^3/uL (150-450); RED BLOOD COUNT 2.36 10^6/uL (4.30-6.10); WHITE BLOOD COUNT 8.8 10^3/uL (4.0-10.0)
[2019-02-26 05:47] LABS: BLOOD UREA NITROGEN 11 MG/DL (7-18); CALCIUM LEVEL 7.2 MG/DL (8.5-10.1); CARBON DIOXIDE LEVEL 25 MEQ/L (21-32); CHLORIDE LEVEL 101 MEQ/L (98-107); CPK CREATINE PHOSPHOKINASE 2308 U/L (39-308); CREATININE FOR GFR 0.75 MG/DL (0.70-1.30); GLOMERULAR FILTRATION RATE > 60.0 (>60); GLUCOSE, FASTING 114 MG/DL (70-100); POTASSIUM SERUM 3.9 MEQ/L (3.5-5.1); SODIUM LEVEL 134 MEQ/L (136-145)
[2019-02-26] MEDS: OXAZEPAM 15 MG CAP PO SCH ×3 (06:04→22:15)
[2019-02-26] MEDS: HEPARIN DRIP 25,000 UNITS in APPROPRIATE DILUENT 1 EA IV SCH (07:40)
[2019-02-26] MEDS: amLODIPine 10 MG TAB PO SCH (09:00)
[2019-02-26] MEDS: PANTOPRAZOLE 40MG INJ (PROTONIX) (C9113) IV SCH (09:07)
[2019-02-26] MEDS: DOCUSATE SODIUM 100 MG CAP PO SCH ×2 (09:07→20:05)
[2019-02-26] MEDS: MULTIVITAMINS/MINERALS THERAP 1 TAB PO SCH (09:08)
[2019-02-26] MEDS: NS 1,000 ML IV SCH ×2 (09:08→17:01)
[2019-02-26] MEDS: ATORVASTATIN 20 MG TAB PO SCH (09:08)
[2019-02-26] MEDS: THIAMINE 100 MG TAB PO SCH ×2 (09:08→20:05)
[2019-02-26] MEDS: FOLIC ACID 1 MG TAB PO SCH (09:09)
--- NOTE | 2019-02-26 09:36 | IPNPDOC ---
Subjective Date Seen The patient was seen on 02/26/19. Subjective Chief Complaint/HPI Patient lying in bed when I entered the room. He reports to be feeling better then yesterday. Right leg with some discomfort. No further bleeding from his access site at left groin. Patient will be receiving transfusion 2 units this morning Constitutional: Denies: Chills, Fever Pulmonary: Denies: Dyspnea, Cough Cardiovascular: Denies: Chest Pain, Palpitations, Orthopnea, Edema Gastrointestinal: Denies: Nausea, Vomiting, Abdominal Pain Hematologic: Reports: Bruising (left groin/upper thigh) Psych: Reports: Mood Normal Objective Physical Examination General Exam: Positive: Alert, Cooperative, No Acute Distress Eye Exam: Positive: PERRLA, Conjunctiva & lids normal; Negative: Sclera icteric ENT Exam: Positive: Atraumatic, Mucous membr. moist/pink Neck Exam: Positive: Supple; Negative: Lymphadenopathy Chest Exam: Positive: Clear to auscultation, Normal air movement Heart Exam: Positive: Rate Normal, Regular Rhythm Abdomen Exam: Positive: Normal bowel sounds, Soft; Negative: Tenderness Extremity Exam: Positive: Other (his right foot is warm but with 2-3 mm of edema. The whole right leg is wrapped carefully.) Skin Exam: Positive: Nl turgor and temperature, Other skin issue (ecchymosis noted left groin region ) Neuro Exam: Positive: Normal Speech Psych Exam: Positive: Mental status NL, Mood NL, Anxiety, Oriented x 3 A-FIB/CHADSVASC A-FIB History Current/History of A-Fib/PAF?: No Assessment /Plan Problems (1) Compartment syndrome of lower extremity Status: Acute Problem Text: 02/26/19: Day 1 s/p fasciotomy. Patient reports leg pain to be improved from yesterday. We will continue to defer management to vascular surgery 02/25: He was taken urgently to the OR today for fasciotomy. This seems to have gone well. We'll defer further management to vascular surgery. (2) Arterial embolism of leg Status: Acute Problem Text: 02/26/19: We will continue to defer management to vascular The TPA had to be stopped because of the surgery. He had multiple attempts at angioplasty which was somewhat successful. He still may need bypass surgery to restore full flow to his lower extremity. We'll defer this management to vascular surgery. (3) Anemia Status: Acute Problem Text: 02/26/19: Hgb 7.0 this morning. He was transfused 1 unit yesterday. Patient to received 2 units of PRBC this morning. We will continue to monitor (4) Alcohol withdrawal Status: Acute Problem Text: 02/26/19: Stable He remains stable on Oxazepam, ativan prn. CIWA protocol in place. (5) Alcoholism Status: Chronic Problem Text: 20+ year drinker. CIWA protocol and Oxazepam/Lorazepam in place. (6) Elevated LFTs Problem Text: His ultrasound showed mild fatty infiltration, probably alcoholic steatohepatitis. His transaminitis is beginning to improve with alcohol abstinence. (7) Hypertension Status: Chronic Response to Treatment: Stable Problem Text: Continue Amlodipine. (8) Smoker Status: Chronic Problem Text: Chronic smoker: 1ppd for 20+ years. Unable to place Nicotine patch due to recent TPA treatment. Plan/VTE VTE Prophylaxis Ordered?: Yes VTE Exclusion Mechanical Proph: Patient on IV Heparin VTE Exclusion Pharmacological: IV Heparin Therapy Plan Family Medicine Attending Note: I saw and examined Mr. Pride, discussed with Sravanthi Alvarez DNP. Agree with her note as documented. I also had a chance to discuss his care with Dr. Hardy. The oozing seems to have stopped. We'll monitor his blood counts. 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) VS, I&O, 24H, Fishbone Vital Signs/I&O Vital Signs Date Time Temp Pulse Resp B/P (MAP) Pulse Ox O2 Delivery O2 Flow Rate FiO2 02/26/19 09:08 19 95 02/26/19 09:00 90 116/63 02/26/19 04:00 100.3 02/25/19 19:00 Room Air 02/25/19 16:00 I&O- Last 24 Hours up to 6 AM 02/26/19 06:00 Intake Total 7532 ml Output Total 2190 ml Balance 5342 ml Laboratory Data 24H LABS Laboratory Tests 2 02/25/19 13:10: Activated Partial Thromboplast Time 217.6*H 02/25/19 13:13: Nucleated Red Blood Cells % (auto) 0.0 02/25/19 18:54: Nucleated Red Blood Cells % (auto) 0.0, Immature Platelet Fraction 12.1H, Anion Gap 7L, Glomerular Filtration Rate > 60.0, Blood Urea Nitrogen 13#, Creatinine 1.02#, Sodium Level 131L, Potassium Level 4.7#, Chloride Level 100, Carbon Dioxide Level 24, Calcium Level 7.7L, Magnesium Level 1.5L 02/25/19 21:45: Activated Partial Thromboplast Time 41.7H 02/26/19 04:47: Nucleated Red Blood Cells % (auto) 0.0, Anion Gap 8, Glomerular Filtration Rate > 60.0, Blood Urea Nitrogen 11, Creatinine 0.75, Sodium Level 134L, Potassium L evel 3.9, Chloride Level 101, Carbon Dioxide Level 25, Calcium Level 7.2L, Magnesium Level 2.0, Total Creatine Kinase 2308#H 02/26/19 05:29: Activated Partial Thromboplast Time 50.5H CBC/BMP Laboratory Tests 02/25/19 13:13 Red Blood Count 2.67 L, Mean Corpuscular Volume 94.8, Mean Corpuscular Hemoglobin 32.2, Mean Corpuscular Hemoglobin Concent 34.0, Red Cell Distribution Width 13.3 02/25/19 18:54 Red Blood Count 2.30 L, Mean Corpuscular Volume 94.3, Mean Corpuscular Hemoglobin 32.2, Mean Corpuscular Hemoglobin Concent 34.1, Red Cell Distribution Width 13.2, Calcium Level 7.7 L 02/26/19 04:47 Red Blood Count 2.36 L, Mean Corpuscular Volume 88.1, Mean Corpuscular Hemoglobin 29.7, Mean Corpuscular Hemoglobin Concent 33.7, Red Cell Distribution Width 16.8 H, Calcium Level 7.2 L SRAVANTHI ALVAREZ February 26, 2019 9:36 am Barry Vaz MD February 26, 2019 10:01 pm
[2019-02-26] MEDS ORDERED: EPINEPHrine 1MG/ML INJ 30ML MD-VIAL XX ONE (10:00)
--- NOTE | 2019-02-26 14:18 | IPNPDOC ---
Date Seen The patient was seen on 02/26/19. 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 He says he did very well overnight. He has minimal pain. He has been tolerating a diet. He did not have any further bleeding episodes from his left groin access site and had minimal sanguinous drainage from his open fasciotomies. He is continuing to equilibrate his acute blood loss anemia postop from 2 separate bleeding occasions from his left femoral access site. 2 additional units of packed red blood cells will be given today for hemoglobin of 7. I did not note any ongoing bleeding today from his left groin or his fasciotomies. His platelet count is slightly higher today in the 90s versus the 80s. We continue the heparin drip. I've encouraged the patient is much protein is possible we will put him high- protein diet. He needs as much protein as he is able to help start the process of wound healing. On exam, the left groin site is very bruised but stable. No active bleeding or hematoma noted. His perfusion in the left lower extremity is stable. The right lower extremity seems a bit better perfused today. It is easier to Doppler a PT signal and I can also Doppler a faint DP signal. His foot is much warmer and capillary refill is 1 second. He can wiggle his toes and has full motor and se nsory function in his foot. The fasciotomy dressings were carefully removed after soaking them in saline. No significant bleeding was noted, but a small amount of oozing from the muscle belly was noted. Both wounds were carefully cleaned and dried. Xeroform was placed over the muscle bellies. Epinephrine soaked gauze was placed over the Xeroform to help with hemostasis. Dry gauze, AVD pads, kerlix, Giuseppe wrap were used to complete the dressings. The patient tolerated this very well. We elevated his leg to help with swelling. Our plan at this point is to follow his exam and if his perfusion is adequate, we will attempt to get either close his fasciotomies if swelling subsides, versus placing a wound VAC and eventually a skin graft for closure. I believe the patient will need rehabilitation at discharge. I've spoken with social work about this. Eventually, the patient may need additional intervention for his popliteal artery. This may include a self expanding stent across the artery, which we try to avoid if possible due to stent fractures and occlusions when placed across the knee. Another option may be an above-knee to below-knee or above-knee to posterior tibial bypass. I don't think he needs this urgently at this moment. He will need long-term anticoagulation. His compliance with medications is not the best, so we will try to make his disposition regimen as simple as possible. The patient and his mother have been counseled about this plan and they are both agreeable. We will keep him in ICU one more night. If his hemoglobin is stable tomorrow and his leg perfusion is stable as well, we will likely transferred to the floor. I've spoken with the primary care team about this plan as well. VS, I&O, 24H, Fishbone Vital Signs/I&O Vital Signs Date Time Temp Pulse Resp B/P (MAP) Pulse Ox O2 Delivery O2 Flow Rate FiO2 02/26/19 13:28 20 98 02/26/19 12:30 98.7 106 111/58 (75) 02/26/19 09:35 Room Air 02/25/19 16:00 I&O- Last 24 Hours up to 6 AM 02/26/19 06:00 Intake Total 7532 ml Output Total 2190 ml Balance 5342 ml Laboratory Data 24H LABS Laboratory Tests 2 02/25/19 18:54: Nucleated Red Blood Cells % (auto) 0.0, Immature Platelet Fraction 12.1H, Anion Gap 7L, Glomerular Filtration Rate > 60.0, Blood Urea Nitrogen 13#, Creatinine 1.02#, Sodium Level 131L, Potassium Level 4.7#, Chloride Level 100, Carbon Dioxide Level 24, Calcium Level 7.7L, Magnesium Level 1.5L 02/25/19 21:45: Activated Partial Thromboplast Time 41.7H 02/26/19 04:47: Nucleated Red Blood Cells % (auto) 0.0, Anion Gap 8, Glomerular Filtration Rate > 60.0, Blood Urea Nitrogen 11, Creatinine 0.75, Sodium Level 134L, Potassium Level 3.9, Chloride Level 101, Carbon Dioxide Level 25, Calcium Level 7.2L, Magnesium Level 2.0, Total Creatine Kinase 2308#H 02/26/19 05:29: Activated Partial Thromboplast Time 50.5H 02/26/19 11:53: Activated Partial Thromboplast Time 62.2H CBC/BMP Laboratory Tests 02/25/19 18:54 Red Blood Count 2.30 L, Mean Corpuscular Volume 94.3, Mean Corpuscular Hemoglobin 32.2, Mean Corpuscular Hemoglobin Concent 34.1, Red Cell Distribution Width 13.2, Calcium Level 7.7 L 02/26/19 04:47 Red Blood Count 2.36 L, Mean Corpuscular Volume 88.1, Mean Corpuscular Hemoglobi n 29.7, Mean Corpuscular Hemoglobin Concent 33.7, Red Cell Distribution Width 16.8 H, Calcium Level 7.2 L ALEJANDRO HARVEY MD February 26, 2019 14:18
[2019-02-26] MEDS: diazePAM 5 MG TAB PO PRN (17:01)
[2019-02-26] MEDS: CALCIUM GLUCONATE 1,000 MG in D5W MINI-BAG PLUS 100 ML IV SCH ×2 (17:01→18:20)
[2019-02-26] MEDS: HYDROMORPHONE HCL 0.5 MG/ 0.5 ML SYRINGE (J1170 PER 1) IV PRN (18:22)
[2019-02-26 20:02] LABS: HEMATOCRIT 25.9 % (42.0-52.0); HEMOGLOBIN 8.8 g/dl (13.5-17.5)
[2019-02-27] VITALS (24 sets, daily range): BP systolic 105–137; BP diastolic 55–84
[2019-02-27] MEDS: NS 1,000 ML IV SCH ×2 (04:30→07:45)
[2019-02-27 05:18] LABS: HEMATOCRIT 26.2 % (42.0-52.0); MEAN CORPUSCULAR HEMOGLOBIN 29.6 pg (27.0-33.0); MEAN CORPUSCULAR HGB CONC 34.4 g/dl (32.0-36.5); MEAN CORPUSCULAR VOLUME 86.2 fl (80.0-96.0); PLATELET COUNT, AUTOMATED 132 10^3/uL (150-450); RED BLOOD COUNT 3.04 10^6/uL (4.30-6.10); WHITE BLOOD COUNT 6.6 10^3/uL (4.0-10.0)
[2019-02-27 06:01] LABS: BLOOD UREA NITROGEN 8 MG/DL (7-18); CALCIUM LEVEL 7.4 MG/DL (8.5-10.1); CARBON DIOXIDE LEVEL 26 MEQ/L (21-32); CHLORIDE LEVEL 102 MEQ/L (98-107); CPK CREATINE PHOSPHOKINASE 5448 U/L (39-308); CREATININE FOR GFR 0.66 MG/DL (0.70-1.30); GLOMERULAR FILTRATION RATE > 60.0 (>60); GLUCOSE, FASTING 96 MG/DL (70-100); MAGNESIUM LEVEL 1.8 MG/DL (1.8-2.4); POTASSIUM SERUM 3.5 MEQ/L (3.5-5.1); SODIUM LEVEL 134 MEQ/L (136-145)
[2019-02-27] MEDS: OXAZEPAM 15 MG CAP PO SCH ×3 (06:09→21:32)
[2019-02-27] MEDS: HEPARIN DRIP 25,000 UNITS in APPROPRIATE DILUENT 1 EA IV SCH ×2 (07:42→22:34)
[2019-02-27] MEDS: oxyCODONE 5MG TAB PO PRN ×3 (08:19→18:18)
[2019-02-27] MEDS: ATORVASTATIN 20 MG TAB PO SCH (08:21)
[2019-02-27] MEDS: MULTIVITAMINS/MINERALS THERAP 1 TAB PO SCH (08:21)
[2019-02-27] MEDS: DOCUSATE SODIUM 100 MG CAP PO SCH ×2 (08:21→21:32)
[2019-02-27] MEDS: FOLIC ACID 1 MG TAB PO SCH (08:21)
[2019-02-27] MEDS: amLODIPine 10 MG TAB PO SCH (08:23)
[2019-02-27] MEDS: PANTOPRAZOLE 40MG INJ (PROTONIX) (C9113) IV SCH (08:23)
[2019-02-27] MEDS: ONDANSETRON 4MG/2ML VIAL (J2405) IV PRN (14:00)
[2019-02-27] MEDS: HYDROMORPHONE HCL 0.5 MG/ 0.5 ML SYRINGE (J1170 PER 1) IV PRN (14:00)
[2019-02-27] MEDS ORDERED: MAG SULF 1GM/100ML (MAG RUN) 1 GM in APPROPRIATE DILUENT 1 EA IV ONE (15:00)
--- NOTE | 2019-02-27 16:01 | IPNPDOC ---
Date Seen The patient was seen on 02/27/19. Progress Note Pt seen and examined. Doing well today. Pain is better every day. OOB to chair last night and today. Will advance activity as tolerated with ASSIST. Dressings done RLE fasciotomies by RN today, and she took a photo of the wounds and they look great- clean, pink, perfused. His swelling is a little better too. He is elevating as instructing. His DP signal is a bit faint but biphasic, and PT is b iphasic and strong, cap refill is brisk, foot is warm and pink, motor and sensory are intact. Plan is to advance activity with PT/OT and likely recommend rehab at discharge. We will place a wound vac tomorrow since the muscle is still bulging a bit and we do not want to diminish perfusion by trying to close the skin. He will either heal with the wound vac or we will do STSG after granulation of the wound beds. We will likely switch the patient to oral anticoagulation tomorrow. We will plan to d/c the vo in the morning as well. We replaced his calcium and magnesium, and will follow his CK. Overall, we are very pleased with his progress thus far. The patient was extensively counseled about the plan and all questions were answered. VS, I&O, 24H, [place] Vital Signs/I&O Vital Signs Date Time Temp Pulse Resp B/P (MAP) Pulse Ox O2 Delivery O2 Flow Rate FiO2 02/27/19 14:10 22 94 02/27/19 08:23 101 149/90 02/27/19 08:00 100.0 02/26/19 19:00 Room Air 02/25/19 16:00 I&O- Last 24 Hours up to 6 AM 02/27/19 06:00 Intake Total 3480 ml Output Total 2705 ml Balance 775 ml Laboratory Data 24H LABS Laboratory Tests 2 02/26/19 19:53: Activated Partial Thromboplast Time 64.0H 02/27/19 04:53: Activated Partial Thromboplast Time 72.3H, Nucleated Red Blood Cells % (auto) 0.5H, Anion Gap 6L, Glomerular Filtration Rate > 60.0, Blood Urea Nitrogen 8, Creatinine 0.66L, Sodium Level 134L, Potassium Level 3.5, Chloride Level 102, Carbon Dioxide Level 26, Calcium Level 7.4L, Magnesium Level 1.8, Total Creatine Kinase 5448#H 02/27/19 11:00: Activated Partial Thromboplast Time 60.3H CBC/BMP Laboratory Tests 02/26/19 19:53 02/27/19 04:53 Red Blood Count 3.04 L, Mean Corpuscular Volume 86.2, Mean Corpuscular Hemoglobin 29.6, Mean Corpuscular Hemoglobin Concent 34.4, Red Cell Distribution Width 17.2 H, Calcium Level 7.4 L ALEJANDRO HARVEY MD February 27, 2019 16:01
[2019-02-27] MEDS: CALCIUM GLUCONATE 1,000 MG in D5W MINI-BAG PLUS 100 ML IV SCH ×3 (16:04→22:02)
--- NOTE | 2019-02-27 17:15 | IPNPDOC ---
Subjective Date Seen The patient was seen on 02/27/19. Subjective Chief Complaint/HPI Freddie reports he is doing well today. He is getting up for his meals now. His right leg was redressed, and it sounds as if Dr. Hardy intends to set his skin up for initial closure with a wound VAC, possibly tomorrow. He denies any shakes, or signs of all call withdrawal. He is currently maintained on oxazepam 15 mg 3 times a day. Constitutional: Denies: Chills, Fever Pulmonary: Denies: Dyspnea, Cough Cardiovascular: Denies: Chest Pain, Palpitations Genitourinary: Denies: Dysuria Psych: Reports: Mood Normal Objective Physical Examination General Exam: Positive: Alert, Cooperative (laying in his bed watching TV when I entered the room), No Acute Distress Eye Exam: Positive: Conjunctiva & lids normal; Negative: Sclera icteric ENT Exam: Positive: Atraumatic, Mucous membr. moist/pink Neck Exam: Positive: Supple; Negative: Lymphadenopathy Chest Exam: Positive: Clear to auscultation, Normal air movement Heart Exam: Positive: Rate Normal, Regular Rhythm Abdomen Exam: Positive: Normal bowel sounds, Soft; Negative: Tenderness Male Exam: Negative: Normal Genital Exam (he has substantial bruising of his genitalia, this comes from one of his vascular access sites) Extremity Exam: Positive: Other (his right leg is now loosely wrapped in Kerlix. It is warm.) Skin Exam: Positive: Nl turgor and temperature Neuro Exam: Positive: Normal Speech Psych Exam: Positive: Mental status NL, Mood NL, Oriented x 3 A-FIB/CHADSVASC A-FIB History Current/History of A-Fib/PAF?: No Assessment /Plan Problems (1) Compartment syndrome of lower extremity Status: Acute Problem Text: 02/27/19: Daily #2 right lower extremity fasciotomy. It sounds as if he may be getting the point where the thinking about enhancing closure closure although it will be by secondary intention. His CK did bump today, but I think this reflects the fact that we reduced his fluid rate, and therefore renal clearance, rather than ongoing release of enzyme. 02/26/19: Day 1 s/p fasciotomy. Patient reports leg pain to be improved from yesterday. We will continue to defer management to vascular surgery 5/14: He was taken urgently to the OR today for fasciotomy. This seems to have gone well. We'll defer further management to vascular surgery. (2) Arterial embolism of leg Status: Acute Problem Text: 02/27/19: He is status post angioplasty of his right lower extr emity. We'll continue to defer to vascular surgery. 02/26/19: We will continue to defer management to vascular The TPA had to be stopped because of the surgery. He had multiple attempts at angioplasty which was somewhat successful. He still may need bypass surgery to restore full flow to his lower extremity. We'll defer this management to vascular surgery. (3) Anemia Status: Acute Problem Text: 02/27/19: After his transfusion his hemoglobin is stable, slightly rising. We'll continue to monitor carefully. 02/26/19: Hgb 7.0 this morning. He was transfused 1 unit yesterday. Patient to received 2 units of PRBC this morning. We will continue to monitor (4) Alcohol withdrawal Status: Acute Problem Text: 02/27/19: The CIWA protocol remains in place, but has not been needed. He remains on oxazepam 15 mg 3 times a day. We'll continue this dose through tomorrow. Starting Sunday, 03/01, I will reduce his dose to 10 mg 3 times a day. Ultimately I think we should taper him off of this medication. 02/26/19: Stable He remains stable on Oxazepam, ativan prn. CIWA protocol in place. (5) Alcoholism Status: Chronic Problem Text: 20+ year drinker. CIWA protocol and Oxazepam/Lorazepam in place. (6) Elevated LFTs Problem Text: We have not checked his LFTs in a couple days. I will look at this tomorrow. (7) Hypertension Status: Chronic Response to Treatment: Stable Problem Text: His blood pressure is currently well controlled, continue amlodipine. (8) Smoker Status: Chronic Problem Text: Chronic smoker: 1ppd for 20+ years. Unable to place Nicotine patch due to recent TPA treatment and the need for him to heal as efficiently as possible. Plan/VTE VTE Prophylaxis Ordered?: Yes VTE Exclusion Mechanical Proph: Patient on IV Heparin VTE Exclusion Pharmacological: IV Heparin Therapy VS, I&O, 24H, Fishbone Vital Signs/I&O Vital Signs Date Time Temp Pulse Resp B/P (MAP) Pulse Ox O2 Delivery O2 Flow Rate FiO2 02/27/19 16:00 99.7 81 114/79 (91) 97 02/27/19 15:00 20 02/26/19 19:00 Room Air 02/25/19 16:00 I&O- Last 24 Hours up to 6 AM 02/27/19 06:00 Intake Total 3480 ml Output Total 2705 ml Balance 775 ml Laboratory Data 24H LABS Laboratory Tests 2 02/26/19 19:53: Activated Partial Thromboplast Time 64.0H 02/27/19 04:53: Activated Partial Thromboplast Time 72.3H, Nucleated Red Blood Cells % (auto) 0.5H, Anion Gap 6L, Glomerular Filtration Rate > 60.0, Blood Urea Nitrogen 8, Creatinine 0.66L, Sodium Level 134L, Potassium Level 3.5, Chloride Level 102, Carbon Dioxide Level 26, Calcium Level 7.4L, Magnesium Level 1.8, Total Creatine Kinase 5448#H 02/27/19 11:00: Activated Partial Thromboplast Time 60.3H CBC/BMP Laboratory Tests 02/26/19 19:53 02/27/19 04:53 Red Blood Count 3.04 L, Mean Corpuscular Volume 86.2, Mean Corpuscular Hemoglobin 29.6, Mean Corpuscular Hemoglobin Concent 34.4, Red Cell Distribution Width 17.2 H, Calcium Level 7.4 L Barry Vaz MD February 27, 2019 5:15 pm
[2019-02-28] VITALS (10 sets, daily range): BP systolic 109–136; BP diastolic 60–80
[2019-02-28 04:58] LABS: HEMATOCRIT 25.3 % (42.0-52.0); HEMOGLOBIN 8.4 g/dl (13.5-17.5); MEAN CORPUSCULAR HEMOGLOBIN 29.5 pg (27.0-33.0); MEAN CORPUSCULAR HGB CONC 33.2 g/dl (32.0-36.5); MEAN CORPUSCULAR VOLUME 88.8 fl (80.0-96.0); PLATELET COUNT, AUTOMATED 160 10^3/uL (150-450); RED BLOOD COUNT 2.85 10^6/uL (4.30-6.10); WHITE BLOOD COUNT 5.8 10^3/uL (4.0-10.0)
[2019-02-28 05:34] LABS: ALBUMIN 2.1 GM/DL (3.2-5.2); ALT/SGPT 116 U/L (12-78); BILIRUBIN,TOTAL 0.9 MG/DL (0.2-1.0); BLOOD UREA NITROGEN 6 MG/DL (7-18); CARBON DIOXIDE LEVEL 28 MEQ/L (21-32); CHLORIDE LEVEL 98 MEQ/L (98-107); CPK CREATINE PHOSPHOKINASE 5798 U/L (39-308); GLOMERULAR FILTRATION RATE > 60.0 (>60); GLUCOSE, FASTING 107 MG/DL (70-100); POTASSIUM SERUM 3.8 MEQ/L (3.5-5.1); SODIUM LEVEL 132 MEQ/L (136-145); TOTAL PROTEIN 5.5 GM/DL (6.4-8.2)
[2019-02-28] MEDS: OXAZEPAM 15 MG CAP PO SCH ×3 (05:48→21:22)
[2019-02-28] MEDS: HYDROMORPHONE HCL 0.5 MG/ 0.5 ML SYRINGE (J1170 PER 1) IV PRN (08:09)
[2019-02-28] MEDS: amLODIPine 10 MG TAB PO SCH (09:00)
[2019-02-28] MEDS: FOLIC ACID 1 MG TAB PO SCH (09:24)
[2019-02-28] MEDS: PANTOPRAZOLE 40MG INJ (PROTONIX) (C9113) IV SCH (09:24)
[2019-02-28] MEDS: MULTIVITAMINS/MINERALS THERAP 1 TAB PO SCH (09:24)
[2019-02-28] MEDS: ATORVASTATIN 20 MG TAB PO SCH (09:24)
[2019-02-28] MEDS: DOCUSATE SODIUM 100 MG CAP PO SCH ×2 (09:25→21:22)
--- NOTE | 2019-02-28 09:55 | IPNPDOC ---
Date Seen The patient was seen on 02/28/19. Progress Note Pt seen and examined. Doing well today. No complaints. Minimal pain. Tolerating high protein diet. Dressings removed RLE. Incisions and muscle bellies cleaned carefully. Measurements: medial 23.5cm length x 3.5cm width x 0.5cm depth; lateral 12.5cm length x 7.5cm depth x 0.2 cm depth. Adaptic placed over muscle, then black sponge, no sting skin prep around skin, then drape. The incisions were bridge over drape and suction was excellent with negligible leak. Please elevate BLE when in bed/at rest. He has quite a bit of swelling, primarily the LLE today. The groin bruising is stable L LVN access site s/p TPA thrombolysis and R popliteal/tibial angioplasty. Biphasic DP and PT signals BLE. Plan: 1. D/c vo. Straight cath prn no UO Q6h. 2. Cont IVF and recheck CK in am. Cr 0.6 yesterday, 0.8 today-stable. UO excellent. 3. Likely CK 5700 is peak, and hopefully will start to come down this weekend. 4. ARU consult. 5. [facility] changes MWF: adaptic over muscle, blk sponge, no sting skin prep, drape, bridge. -125mmHg low cont suction. 6. Consult to Dr Alcazar for [place] management if pt d/c from rehab before I return in 2 weeks. 7. Plan for STSG fasciotomies if granulated in 2-3 wks. 8. D/c dilaudid. Oral analgesia adequate. 9. Activity as tolerated with assist. 10. Xarelto 20mg daily, and d/c heparin gtt 1 hour after administered. Eventually, pt will likely need a R popliteal artery stent vs AK to BK bypass. I do not feel the angioplasty alone will be sufficient residential, especially if he starts smoking again at discharge, but it should get him through this acute period and hopefully we can get resolution of left groin soft tissue hematoma before having to access his L LVN again. Will need self expanding 5mm stent, and I d/w [employer] to provide appropriate sizing so we will have it prn. he is young, and stenting across the joint is not a great solution retirement due to potential for stent fracture or thrombosis with repetitive motion, but the plaque is so dense that angioplasty alone will not be a residential solution. Pt counseled. All questions answered. VS, I&O, 24H, Fishbone Vital Signs/I&O Vital Signs Date Time Temp Pulse Resp B/P (MAP) Pulse Ox O2 Delivery O2 Flow Rate FiO2 02/28/19 09:00 86 112/52 02/28/19 08:19 20 95 02/28/19 04:00 100.2 02/26/19 19:00 Room Air 02/25/19 16:00 I&O- Last 24 Hours up to 6 AM0 02/28/19 06:00 Intake Total 3158 ml Output Total 3150 ml Balance 8 ml Laboratory Data 24H LABS Laboratory Tests 2 02/27/19 11:00: Activated Partial Thromboplast Time 60.3H 02/27/19 18:47: Activated Partial Thromboplast Time 72.6H 02/28/19 00:56: Activated Partial Thromboplast Time 84.3H 02/28/19 04:41: Activated Partial Thromboplast Time 74.8H, Nucleated Red Blood Cells % (auto) 0.3H, Anion Gap 6L, Glomerular Filtration Rate > 60.0, Blood Urea Nitrogen 6L, Creatinine 0.80, Sodium Level 132L, Potassium Level 3.8, Chloride Level 98, Carbon Dioxide Level 28, Calcium Level 8.0L, Aspartate Amino Transf (AST/SGOT) 263H, Alanine Aminotransferase (ALT/SGPT) 116H, Total Creatine Kinase 5798H, Alkaline Phosphatase 71, Total Bilirubin 0.9, Total Protein 5.5L, Albumin 2.1#L, Albumin/Globulin Ratio 0.62L CBC/BMP Laboratory Tests 02/28/19 04:41 Red Blood Count 2.85 L, Mean Corpuscular Volume 88.8, Mean Corpuscular Hemoglobin 29.5, Mean Corpuscular Hemoglobin Concent 33.2, Red Cell Distribution Width 16.8 H, Calcium Level 8.0 L, Aspartate Amino Transf (AST/SGOT) 263 H, Alanine Aminotransferase (ALT/SGPT) 116 H, Total Creatine Kinase 5798 H, Alkaline Phosphatase 71, Total Bilirubin 0.9, Total Protein 5.5 L, Albumin 2.1 #L ALEJANDRO HARVEY MD February 28, 2019 09:55
[2019-02-28] MEDS: RIVAROXABAN 20 MG TAB (XARELTO) PO SCH (10:25)
--- NOTE | 2019-02-28 11:42 | IPNPDOC ---
Subjective Date Seen The patient was seen on 02/28/19. Subjective Chief Complaint/HPI Patient resting in chair as I entered the room. He had a wound vac placed this morning. He states he is feeling well. He does report pain in right lower leg. Constitutional: Denies: Chills, Fever Pulmonary: Denies: Dyspnea, Cough Cardiovascular: Reports: Edema; Denies: Chest Pain, Palpitations, Orthopnea Gastrointestinal: Reports: Constipation; Denies: Nausea, Vomiting, Abdominal Pain Psych: Reports: Mood Normal Objective Physical Examination General Exam: Positive: Alert, Cooperative (laying in his bed watching TV when I entered the room), No Acute Distress Eye Exam: Positive: Conjunctiva & lids normal; Negative: Sclera icteric ENT Exam: Positive: Atraumatic, Mucous membr. moist/pink Neck Exam: Positive: Supple; Negative: Lymphadenopathy Chest Exam: Positive: Clear to auscultation, Normal air movement Heart Exam: Positive: Rate Normal, Regular Rhythm Abdomen Exam: Positive: Normal bowel sounds, Soft; Negative: Tenderness Male Exam: Negative: Normal Genital Exam (he has substantial bruising of his genitalia, this comes from one of his vascular access sites) Extremity Exam: Positive: Edema (1+ left lower leg ), Other (Wound vac right LE) Skin Exam: Positive: Nl turgor and temperature Neuro Exam: Positive: Normal Speech Psych Exam: Positive: Mental status NL, Mood NL, Oriented x 3 A-FIB/CHADSVASC A-FIB History Current/History of A-Fib/PAF?: No Assessment /Plan Problems (1) Compartment syndrome of lower extremity Status: Acute Problem Text: 02/28/19: Wound vac in place. His CK continues to trend up. IVK NS at 60/hr 02/27/19: Daily #2 right lower extremity fasciotomy. It sounds as if he may be getting the point where the thinking about enhancing closure closure although it will be by secondary intention. His CK did bump today, but I think this reflects the fact that we reduced his fluid rate, and therefore renal clearance, rather than ongoing release of enzyme. 02/26/19: Day 1 s/p fasciotomy. Patient reports leg pain to be improved from yesterday. We will continue to defer management to vascular surgery 02/25: He was taken urgently to the OR today for fasciotomy. This seems to have gone well. We'll defer further management to vascular surgery. (2) Arterial embolism of leg Status: Acute Problem Text: 02/27/19: He is status post angioplasty of his right lower extremity. We'll continue to defer to vascular surgery. 02/26/19: We will continue to defer management to vascular The TPA had to be stopped because of the surgery. He had multiple attempts at angioplasty which was somewhat successful. He still may need bypass surgery to restore full flow to his lower extremity. We'll defer this management to vascular surgery. (3) Anemia Status: Acute Problem Text: 02/28/19: Remains stable, Hgb 8.4 02/27/19: After his transfusion his hemoglobin is stable, slightly rising. We'll continue to monitor carefully. 02/26/19: Hgb 7.0 this morning. He was transfused 1 unit yesterday. Patient to received 2 units of PRBC this morning. We will continue to monitor (4) Alcohol withdrawal Status: Acute Problem Text: 02/27/19: The CIWA protocol remains in place, but has not been needed. He remains on oxazepam 15 mg 3 times a day. We'll continue this dose through tomorrow. Starting Sunday, 03/01, I will reduce his dose to 10 mg 3 times a day. Ultimately I think we should taper him off of this medication. 02/26/19: Stable He remains stable on Oxazepam, ativan prn. CIWA protocol in place. (5) Alcoholism Status: Chronic Problem Text: 20+ year drinker. CIWA protocol and Oxazepam/Lorazepam in place. (6) Elevated LFTs Status: Acute Problem Text: 02/28/19: AST 263, ALT 116, TB 0.9, Albumin 2.1. Total protein 5.5, platelets 160 Liver U/S: Scanning through the right upper quadrant of the abdomen demonstrates sludge in a mildly dilated gallbladder. No stone is seen. Common bile duct is normal measuring 0.6 cm in greatest diameter. The gallbladder measures up to 10.4 cm in diameter. No pericholecystic fluid or gallbladder wal l thickening is seen. No focal liver lesion is appreciated. There is evidence of mild fatty infiltration. The liver is not felt to be enlarged. Limited views of the pancreas show no abnormality. There is no evidence of ascites or right renal abnormality. The right kidney measures 11.6 x 6.0 x 5.0 cm. We have not checked his LFTs in a couple days. I will look at this tomorrow. (7) Hypertension Status: Chronic Response to Treatment: Stable Problem Text: His blood pressure is currently well controlled, continue amlodipine. (8) Smoker Status: Chronic Problem Text: Chronic smoker: 1ppd for 20+ years. Unable to place Nicotine patch due to recent TPA treatment and the need for him to heal as efficiently as possible. Plan/VTE VTE Prophylaxis Ordered?: Yes (Xarelto ) VTE Exclusion Mechanical Proph: Patient on IV Heparin VTE Exclusion Pharmacological: IV Heparin Therapy Plan Family Medicine Attending Note: I saw and examined Mr. Pride, discussed with Sravanthi Alvarez DNP. Agree with her note as documented. I saw him up on the floor today; being out of the ICU is a very positive change for him. His wound VAC was in place and seems to be functioning properly. Today is the last day of oxazepam 15 mg 3 times a day. Tomorrow we will start a reduced dose of 10 mg 3 times a day. I anticipate we may continue to taper him slowly while he is here. This should help if he chooses to quit drinking when he leaves. (manager animal) VS, I&O, 24H, Fishbone Vital Signs/I&O Vital Signs Date Time Temp Pulse Resp B/P (MAP) Pulse Ox O2 Delivery O2 Flow Rate FiO2 02/28/19 09:00 86 112/52 02/28/19 08:19 20 95 02/28/19 04:00 100.2 02/26/19 19:00 Room Air 02/25/19 16:00 I&O- Last 24 Hours up to 6 AM 02/28/19 06:00 Intake Total 3158 ml Output Total 3150 ml Balance 8 ml Laboratory Data 24H LABS Laboratory Tests 2 02/27/19 18:47: Activated Partial Thromboplast Time 72.6H 02/28/19 00:56: Activated Partial Thromboplast Time 84.3H 02/28/19 04:41: Activated Partial Thromboplast Time 74.8H, Nucleated Red Blood Cells % (auto) 0.3H, Anion Gap 6L, Glomerular Filtration Rate > 60.0, Blood Urea Nitrogen 6L, Creatinine 0.80, Sodium Level 132L, Potassium Level 3.8, Chloride Level 98, Carbon Dioxide Level 28, Calcium Level 8.0L, Aspartate Amino Transf (AST/SGOT) 263H, Alanine Aminotransferase (ALT/SGPT) 116H, Total Creatine Kinase 5798H, Alkaline Phosphatase 71, Total Bilirubin 0.9, Total Protein 5.5L, Albumin 2.1#L, Albumin/Globulin Ratio 0.62L CBC/BMP Laboratory Tests 02/28/19 04:41 Red Blood Count 2.85 L, Mean Corpuscular Volume 88.8, Mean Corpuscular Hemoglobin 29.5, Mean Corpuscular Hemoglobin Concent 33.2, Red Cell Distribution Width 16.8 H, Calcium Level 8.0 L, Aspartate Amino Transf (AST/SGOT) 263 H, Alanine Aminotransferase (ALT/SGPT) 116 H, Total Creatine Kinase 5798 H, Alkaline Phosphatase 71, Total Bilirubin 0.9, Total Protein 5.5 L, Albumin 2.1 #L SRAVANTHI ALVAREZ February 28, 2019 11:42 Barry Vaz MD March 02, 2019 23:42
[2019-02-28] MEDS: oxyCODONE 5MG TAB PO PRN ×3 (12:46→21:23)
[2019-02-28 13:00] LABS: HEPATITIS B SURFACE ANTIGEN NEGATIVE (NEGATIVE)
[2019-02-28 13:27] LABS: HEPATITIS C VIRUS ABY INDEX < 0.0 INDEX (<0.8)
[2019-02-28 13:28] LABS: HEPATITIS B CORE ANTIBODY IGM NEGATIVE (NEGATIVE)
[2019-02-28 13:29] LABS: HEPATITIS A ANTIBODY IGM NEGATIVE (NEGATIVE)
[2019-02-28] MEDS: NS 1,000 ML IV SCH (15:26)
[2019-03-01] MEDS: oxyCODONE 5MG TAB PO PRN ×3 (01:30→16:20)
[2019-03-01 02:00] VITALS: BP 127/68
[2019-03-01 05:57] LABS: HEMATOCRIT 24.5 % (42.0-52.0); HEMOGLOBIN 8.1 g/dl (13.5-17.5); MEAN CORPUSCULAR HEMOGLOBIN 28.9 pg (27.0-33.0); MEAN CORPUSCULAR HGB CONC 33.1 g/dl (32.0-36.5); MEAN CORPUSCULAR VOLUME 87.5 fl (80.0-96.0); PLATELET COUNT, AUTOMATED 215 10^3/uL (150-450); WHITE BLOOD COUNT 5.4 10^3/uL (4.0-10.0)
[2019-03-01 06:00] VITALS: BP 137/73
[2019-03-01 06:41] LABS: ALT/SGPT 127 U/L (12-78); BILIRUBIN,TOTAL 1.2 MG/DL (0.2-1.0); BLOOD UREA NITROGEN 6 MG/DL (7-18); CARBON DIOXIDE LEVEL 27 MEQ/L (21-32); CHLORIDE LEVEL 99 MEQ/L (98-107); CPK CREATINE PHOSPHOKINASE 5088 U/L (39-308); CREATININE FOR GFR 0.78 MG/DL (0.70-1.30); GLOMERULAR FILTRATION RATE > 60.0 (>60); GLUCOSE, FASTING 97 MG/DL (70-100); POTASSIUM SERUM 3.7 MEQ/L (3.5-5.1); SODIUM LEVEL 133 MEQ/L (136-145); TOTAL PROTEIN 5.4 GM/DL (6.4-8.2)
[2019-03-01 09:22] VITALS: BP 126/66
[2019-03-01] MEDS: RIVAROXABAN 20 MG TAB (XARELTO) PO SCH (10:41)
[2019-03-01] MEDS: FOLIC ACID 1 MG TAB PO SCH (10:41)
[2019-03-01] MEDS: ATORVASTATIN 20 MG TAB PO SCH (10:42)
[2019-03-01] MEDS: amLODIPine 10 MG TAB PO SCH (10:43)
[2019-03-01] MEDS: MULTIVITAMINS/MINERALS THERAP 1 TAB PO SCH (10:43)
[2019-03-01] MEDS: ASPIRIN 81 MG ENTERIC TAB PO SCH (10:43)
[2019-03-01] MEDS: DOCUSATE SODIUM 100 MG CAP PO SCH ×2 (10:45→21:12)
[2019-03-01] MEDS: NS 1,000 ML IV SCH (11:05)
[2019-03-01] MEDS: PANTOPRAZOLE 40MG INJ (PROTONIX) (C9113) IV SCH (11:45)
[2019-03-01] MEDS: OXAZEPAM 10 MG CAP PO SCH ×3 (11:46→21:12)
[2019-03-01] MEDS ORDERED: SENNA 8.6 MG TAB (SENOKOT) PO PRN (12:30)
[2019-03-01] MEDS ORDERED: MIRALAX *UNIT DOSE* 17GM PACKET PO PRN (12:30)
--- NOTE | 2019-03-01 12:57 | IPNPDOC ---
Date Seen The patient was seen on 03/01/19. Progress Note Pt seen and examined. No new issues overnight. Good UO after d/c vo. OOB with assist and feeling a bit stronger. On exam, BLE are edematous from IVF and recent interventions. DP/PT signals bip hasic BLE. [place] intact RLE fasciotomies. Plan is for [place] change MWF and we will plan for skin graft once granulated (~2- 3weeks). Hopefully pt qualifies for rehab, and cont P/OT with activity as tolerated. CK peaked yesterday and would cont IVF to help clear CK at least one more day despite BLE edema. FOB elevated when at rest. Xarelto and ASA at d/c. Wean analgesia as tolerated. High protein diet to help with wound healing. VS, I&O, 24H, Fishbone Vital Signs/I&O Vital Signs Date Time Temp Pulse Resp B/P (MAP) Pulse Ox O2 Delivery O2 Flow Rate FiO2 03/01/19 10:43 84 118/64 03/01/19 09:43 18 03/01/19 09:22 100.1 94 02/26/19 19:00 Room Air 02/25/19 16:00 I&O- Last 24 Hours up to 6 AM 03/01/19 09:00 Intake Total 2673.5 ml Output Total 2615 ml Balance 58.5 ml Laboratory Data 24H LABS Laboratory Tests 2 03/01/19 05:21: Nucleated Red Blood Cells % (auto) 0.0, Anion Gap 7L, Glomerular Filtration Rate > 60.0, Blood Urea Nitrogen 6L, Creatinine 0.78, Sodium Level 133L, Potassium Level 3.7, Chloride Level 99, Carbon Dioxide Level 27, Calcium Level 8.0L, Aspartate Amino Transf (AST/SGOT) 213H, Alanine Aminotransferase (ALT/SGPT) 127H, Total Creatine Kinase 5088H, Alkaline Phosphatase 99, Total Bilirubin 1.2H, Total Protein 5.4L, Albumin 2.0L, Albumin/Globulin Ratio 0.59L CBC/BMP Laboratory Tests 03/01/19 05:21 Red Blood Count 2.80 L, Mean Corpuscular Volume 87.5, Mean Corpuscular Hemoglobin 28.9, Mean Corpuscular Hemoglobin Concent 33.1, Red Cell Distribution Width 16.2 H, Calcium Level 8.0 L, Aspartate Amino Transf (AST/SGOT) 213 H, Alanine Aminotransferase (ALT/SGPT) 127 H, Total Creatine Kinase 5088 H, Alkaline Phosphatase 99, Total Bilirubin 1.2 H, Total Protein 5.4 L, Albumin 2.0 L ALEJANDRO HARVEY MD March 01, 2019 12:57
[2019-03-01 14:00] VITALS: BP 155/80
--- NOTE | 2019-03-01 16:45 | IPNPDOC ---
Subjective Date Seen The patient was seen on 03/01/19. Subjective Chief Complaint/HPI He states that he is doing fairly well. Pain controlled with oral medications. Legs are not elevated at time of exam, but he states that they have been, and he was just about to eat lunch. Nursing reports activity currently limited to stand and pivot for transfers; he states that he has been working with PT. He has some significant bruising and swelling in both legs as well as his scrotum, but he denies pain in L leg or testicles. Constitutional: Denies: Chills, Fever Skin: Reports: Bruising (abdomen, L thigh, scrotum), Other (wound vac on RLE incisions) Gastrointestinal: Denies: Nausea, Vomiting, Diarrhea, Constipation Genitourinary: Reports: Other Symptoms (scrotum swollen) Musculoskeletal: Reports: Leg Pain Objective Physical Examination General Exam: Positive: Alert, No Acute Distress Eye Exam: Positive: Conjunctiva & lids normal; Negative: Sclera icteric ENT Exam: Positive: Atraumatic, Mucous membr. moist/pink Neck Exam: Positive: Supple; Negative: Lymphadenopathy Chest Exam: Positive: Clear to auscultation, Normal air movement Heart Exam: Positive: Rate Normal, Regular Rhythm Abdomen Exam: Positive: Normal bowel sounds, Soft; Negative: Tenderness Male Exam: Positive: Normal Genital Exam (he has substantial bruising of his genitalia, this comes from one of his vascular access sites) Extremity Exam: Positive: Edema (1+ left lower leg ), Other (Wound vac right LE) Skin Exam: Positive: Nl turgor and temperature Neuro Exam: Positive: Normal Speech Psych Exam: Positive: Mental status NL, Mood NL, Oriented x 3 A-FIB/CHADSVASC A-FIB History Current/History of A-Fib/PAF?: No Assessment /Plan Problems (1) Compartment syndrome of lower extremity Status: Acute Problem Text: 03/01: Wound vac in place. CK downtrending today. If continues to trend down tomorrow, will stop IVFs in hopes of improving edema. Pain in RLE controlled; wound vac in place. Discussed with Dr. Hardy. 02/28/19: Wound vac in place. His CK continues to trend up. IVK NS at 60/hr 02/27/19: Daily #2 right lower extremity fasciotomy. It sounds as if he may be getting the point where the thinking about enhancing closure closure although it will be by secondary intention. His CK did bump today, but I think this reflects the fact that we reduced his fluid rate, and therefore renal clearance, rather than ongoing release of enzyme. 02/26/19: Day 1 s/p fasciotomy. Patient reports leg pain to be improved from yesterday. We will continue to defer management to vascular surgery 02/25: He was taken urgently to the OR today for fasciotomy. This seems to have gone well. We'll defer further management to vascular surgery. (2) Arterial embolism of leg Status: Acute Problem Text: 02/27/19: He is status post angioplasty of his right lower extremity. We'll continue to defer to vascular surgery. 02/26/19: We will continue to defer management to vascular The TPA had to be stopped because of the surgery. He had multiple attempts at angioplasty which was somewhat successful. He still may need bypass surgery to restore full flow to his lower extremity. We'll defer this management to vascular surgery. (3) Anemia Status: Acute Problem Text: 02/28/19: Remains stable, Hgb 8.4 02/27/19: After his transfusion his hemoglobin is stable, slightly rising. We'll continue to monitor carefully. 02/26/19: Hgb 7.0 this morning. He was transfused 1 unit yesterday. Patient to received 2 units of PRBC this morning. We will continue to monitor (4) Alcohol withdrawal Status: Acute Problem Text: 02/27/19: The CIWA protocol remains in place, but has not been needed. He remains on oxazepam 15 mg 3 times a day. We'll continue this dose through tomorrow. Starting Sunday, 03/01, I will reduce his dose to 10 mg 3 times a day. Ultimately I think we should taper him off of this medication. 02/26/19: Stable He remains stable on Oxazepam, ativan prn. CIWA protocol in place. (5) Alcoholism Status: Chronic Problem Text: 20+ year drinker. CIWA protocol and Oxazepam/Lorazepam in place. (6) Elevated LFTs Status: Acute Problem Text: 02/28/19: AST 263, ALT 116, TB 0.9, Albumin 2.1. Total protein 5.5, platelets 160 Liver U/S: Scanning through the right upper quadrant of the abdomen demonstrates sludge in a mildly dilated gallbladder. No stone is seen. Common bile duct is normal measuring 0.6 cm in greatest diameter. The gallbladder measures up to 10.4 cm in diameter. No pericholecystic fluid or gallbladder wall thickening is seen. No focal liver lesion is appreciated. There is evidence of mild fatty infiltration. The liver is not felt to be enlarged. Limited views of the pancreas show no abnormality. There is no evidence of ascites or right renal abnormality. The right kidney measures 11.6 x 6.0 x 5.0 cm. We have not checked his LFTs in a couple days. I will look at this tomorrow. (7) Hypertension Status: Chronic Response to Treatment: Stable Problem Text: His blood pressure is currently well controlled, continue amlodipine. (8) Smoker Status: Chronic Problem Text: Chronic smoker: 1ppd for 20+ years. Unable to place Nicotine patch due to recent TPA treatment and the need for him to heal as efficiently as possible. Plan/VTE VTE Prophylaxis Ordered?: Yes (Xarelto ) VTE Exclusion Mechanical Proph: Patient on IV Heparin VTE Exclusion Pharmacological: IV Heparin Therapy VS, I&O, 24H, Fishbone Vital Signs/I&O Vital Signs Date Time Temp Pulse Resp B/P (MAP) Pulse Ox O2 Delivery O2 Flow Rate FiO2 03/01/19 16:20 18 03/01/19 14:00 99.8 115 155/80 (105) 96 02/26/19 19:00 Room Air 02/25/19 16:00 I&O- Last 24 Hours up to 6 AM 03/01/19 06:00 Intake Total 2433.5 ml Output Total 2915 ml Balance -481.5 ml Laboratory Data 24H LABS Laboratory Tests 2 03/01/19 05:21: Nucleated Red Blood Cells % (auto) 0.0, Anion Gap 7L, Glomerular Filtration Rate > 60.0, Blood Urea Nitrogen 6L, Creatinine 0.78, Sodium Level 133L, Potassium Level 3.7, Chloride Level 99, Carbon Dioxide Level 27, Calcium Level 8.0L, Aspartate Amino Transf (AST/SGOT) 213H, Alanine Aminotransferase (ALT/SGPT) 127H, Total Creatine Kinase 5088H, Alkaline Phosphatase 99, Total Bilirubin 1.2H, Total Protein 5.4L, Albumin 2.0L, Albumin/Globulin Ratio 0.59L CBC/BMP Laboratory Tests 03/01/19 05:21 Red Blood Count 2.80 L, Mean Corpuscular Volume 87.5, Mean Corpuscular Hemoglobin 28.9, Mean Corpuscular Hemoglobin Concent 33.1, Red Cell Distribution Width 16.2 H, Calcium Level 8.0 L, Aspartate Amino Transf (AST/SGOT) 213 H, Alanine Aminotransferase (ALT/SGPT) 127 H, Total Creatine Kinase 5088 H, Alkaline Phosphatase 99, Total Bilirubin 1.2 H, Total Protein 5.4 L, Albumin 2.0 L REZA DE JESUS DO March 01, 2019 16:45
[2019-03-01 18:00] VITALS: BP 150/75
[2019-03-01 22:00] VITALS: BP 140/73
[2019-03-02] VITALS (7 sets, daily range): BP systolic 116–144; BP diastolic 64–77
[2019-03-02] MEDS: oxyCODONE 5MG TAB PO PRN ×3 (00:17→16:44)
[2019-03-02] MEDS: NS 1,000 ML IV SCH (04:10)
[2019-03-02] MEDS: PANTOPRAZOLE 40MG INJ (PROTONIX) (C9113) IV SCH (08:23)
[2019-03-02] MEDS: amLODIPine 10 MG TAB PO SCH (08:24)
[2019-03-02] MEDS: ATORVASTATIN 20 MG TAB PO SCH (08:24)
[2019-03-02] MEDS: ASPIRIN 81 MG ENTERIC TAB PO SCH (08:25)
[2019-03-02] MEDS: MULTIVITAMINS/MINERALS THERAP 1 TAB PO SCH (08:25)
[2019-03-02] MEDS: RIVAROXABAN 20 MG TAB (XARELTO) PO SCH (08:25)
[2019-03-02] MEDS: DOCUSATE SODIUM 100 MG CAP PO SCH ×2 (08:26→22:02)
[2019-03-02] MEDS: FOLIC ACID 1 MG TAB PO SCH (08:26)
[2019-03-02] MEDS: OXAZEPAM 10 MG CAP PO SCH ×3 (08:26→22:02)
--- NOTE | 2019-03-02 16:34 | IPNPDOC ---
Subjective Date Seen The patient was seen on 03/02/19. Subjective Chief Complaint/HPI Patient reports that he is pretty comfortable, feeling well today. He does voice concern about discomfort with first wound vac change tomorrow. Constitutional: Denies: Chills, Fever, Malaise Pulmonary: Denies: Dyspnea, Cough Cardiovascular: Reports: Edema; Denies: Chest Pain Gastrointestinal: Denies: Nausea, Vomiting, Abdominal Pain, Diarrhea, Constipation Psych: Reports: Mood Normal Objective Physical Examination General Exam: Positive: Alert, No Acute Distress Eye Exam: Positive: Conjunctiva & lids normal; Negative: Sclera icteric ENT Exam: Positive: Atraumatic, Mucous membr. moist/pink Neck Exam: Positive: Supple; Negative: Lymphadenopathy Chest Exam: Positive: Clear to auscultation, Normal air movement Heart Exam: Positive: Rate Normal, Regular Rhythm Abdomen Exam: Positive: Normal bowel sounds, Soft; Negative: Tenderness Male Exam: Negative: Normal Genital Exam (he has substantial bruising of his genitalia, this comes from one of his vascular access sites) Extremity Exam: Positive: Edema (1+ left lower leg ), Other (Wound vac right LE) Skin Exam: Positive: Nl turgor and temperature Neuro Exam: Positive: Normal Speech Psych Exam: Positive: Mental status NL, Mood NL, Oriented x 3 A-FIB/CHADSVASC A-FIB History Current/History of A-Fib/PAF?: No Assessment /Plan Problems (1) Compartment syndrome of lower extremity Status: Acute Problem Text: 03/02: Morphine ordered prn wound vac change tomorrow. 03/01: Wound vac in place. CK downtrending today. If continues to trend down tomorrow, will stop IVFs in hopes of improving edema. Pain in RLE controlled; wound vac in place. Discussed with Dr. Hardy. 02/28/19: Wound vac in place. His CK continues to trend up. IVK NS at 60/hr 02/27/19: Daily #2 right lower extremity fasciotomy. It sounds as if he may be getting the point where the thinking about enhancing closure closure although it will be by secondary intention. His CK did bump today, but I think this reflects the fact that we reduced his fluid rate, and therefore renal clearance, rather than ongoing release of enzyme. 02/26/19: Day 1 s/p fasciotomy. Patient reports leg pain to be improved from yesterday. We will continue to defer management to vascular surgery 02/25: He was taken urgently to the OR today for fasciotomy. This seems to have gone well. We'll defer further management to vascular surgery. (2) Arterial embolism of leg Status: Acute Problem Text: 02/27/19: He is status post angioplasty of his right lower extremity. We'll continue to defer to vascular surgery. 02/26/19: We will continue to defer management to vascular The TPA had to be stopped because of the surgery. He had multiple attempts at angioplasty which was somewhat successful. He still may need bypass surgery to restore full flow to his lower extremity. We'll defer this management to vascula r surgery. (3) Anemia Status: Acute Problem Text: 02/28/19: Remains stable, Hgb 8.4 02/27/19: After his transfusion his hemoglobin is stable, slightly rising. We'll continue to monitor carefully. 02/26/19: Hgb 7.0 this morning. He was transfused 1 unit yesterday. Patient to received 2 units of PRBC this morning. We will continue to monitor (4) Alcohol withdrawal Status: Acute Problem Text: 02/27/19: The CIWA protocol remains in place, but has not been needed. He remains on oxazepam 15 mg 3 times a day. We'll continue this dose through tomorrow. Starting Sunday, 03/01, I will reduce his dose to 10 mg 3 times a day. Ultimately I think we should taper him off of this medication. 02/26/19: Stable He remains stable on Oxazepam, ativan prn. CIWA protocol in place. (5) Alcoholism Status: Chronic Problem Text: 20+ year drinker. CIWA protocol and Oxazepam/Lorazepam in place. (6) Elevated LFTs Status: Acute Problem Text: 02/28/19: AST 263, ALT 116, TB 0.9, Albumin 2.1. Total protein 5.5, platelets 160 Liver U/S: Scanning through the right upper quadrant of the abdomen demonstrates sludge in a mildly dilated gallbladder. No stone is seen. Common bile duct is normal measuring 0.6 cm in greatest diameter. The gallbladder measures up to 10.4 cm in diameter. No pericholecystic fluid or gallbladder wall thickening is seen. No focal liver lesion is appreciated. There is evidence of mild fatty infiltration. The liver is not felt to be enlarged. Limited views of the pancreas show no abnormality. There is no evidence of ascites or right renal abnormality. The right kidney measures 11.6 x 6.0 x 5.0 cm. We have not checked his LFTs in a couple days. I will look at this tomorrow. (7) Hypertension Status: Chronic Response to Treatment: Stable Problem Text: His blood pressure is currently well controlled, continue amlodipine. (8) Smoker Status: Chronic Problem Text: Chronic smoker: 1ppd for 20+ years. Unable to place Nicotine patch due to recent TPA treatment and the need for him to heal as efficiently as possible. Plan/VTE VTE Prophylaxis Ordered?: Yes (Xarelto ) VTE Exclusion Mechanical Proph: Patient on IV Heparin VTE Exclusion Pharmacological: IV Heparin Therapy VS, I&O, 24H, Fishbone Vital Signs/I&O Vital Signs Date Time Temp Pulse Resp B/P (MAP) Pulse Ox O2 Delivery O2 Flow Rate FiO2 03/02/19 14:00 99.6 90 18 118/64 (82) 98 02/26/19 19:00 Room Air 02/25/19 16:00 I&O- Last 24 Hours up to 6 AM 03/02/19 06:00 Intake Total 3810 ml Output Total 2425 ml Balance 1385 ml REZA DE JESUS DO March 02, 2019 16:34
--- NOTE | 2019-03-02 16:46 | IPNPDOC ---
Date Seen The patient was seen on 03/02/19. Progress Note Pt seen and examined. No new issues overnight. Good UO. OOB with assist and feeling a bit stronger. No PT OT over the weekend, he says bc he was on the commode when they came by. He says he has had intermittent vac leakage from the lateral incision after hitting his leg on the commode. The nurses tried to fix with reinforcing drape, and I tried too, but eventually it became clear that it wasnt sealing, so I changed the lateral vac in the same fashion as initial placement and it had an excellent seal at that point. On exam, BLE are edematous from IVF and recent interventions. DP/PT signals biphasic BLE. WV is now intact to RLE fasciotomies after replacing lateral aspect. -Lateral vac replaced today due to leak, but plan is still for WV change MWF and we will plan for skin graft once granulated (~2-3weeks). Pt has a bit of anxiety about WV change, but had little pain when we first placed it so I think he will do fine and tried to reassure him. Wound care consult placed for vac change with wound nurse tomorrow. Dr Alcazar consulted for outpatient vac management if necessary until I return in 2 weeks, and then we can hopefully proceed with STSG if necessary. -Hopefully pt qualifies for rehab, and cont P/OT with activity as tolerated. CK peaked Sunday and we can probably stop IVF today. He will start to mobilize his BLE edema if we can get his nutrition improved. FOB elevated on the bar under the frame when at rest + pillows. -Xarelto and ASA at d/c. -Wean analgesia as tolerated. -High protein diet to help with wound healing. Vac instructions are in orders as follows: Gently clean skin and muscle bellies with saline, pat dry, no sting skin prep around incisions, adaptic over muscle in single layer, thin layer of black foam over fasciotomies but no foam touching the skin, drape, bridge together over dorsal leg or use 2 track pads and a "Y" connector. -125mmHg low continuous suction. Cover with miroslava wrap to protect- not too tight. VS, I&O, 24H, Fishbone Vital Signs/I&O Vital Signs Date Time Temp Pulse Resp B/P (MAP) Pulse Ox O2 Delivery O2 Flow Rate FiO2 03/02/19 14:00 99.6 90 18 118/64 (82) 98 02/26/19 19:00 Room Air 02/25/19 16:00 I&O- Last 24 Hours up to 6 AM 03/02/19 06:00 Intake Total 3810 ml Output Total 2425 ml Balance 1385 ml ALEJANDRO HARVEY MD March 02, 2019 16:46
[2019-03-02 17:28] LABS: HEMATOCRIT 25.2 % (42.0-52.0); HEMOGLOBIN 8.3 g/dl (13.5-17.5); MEAN CORPUSCULAR HEMOGLOBIN 29.7 pg (27.0-33.0); MEAN CORPUSCULAR HGB CONC 32.9 g/dl (32.0-36.5); MEAN CORPUSCULAR VOLUME 90.3 fl (80.0-96.0); PLATELET COUNT, AUTOMATED 327 10^3/uL (150-450); RED BLOOD COUNT 2.79 10^6/uL (4.30-6.10); WHITE BLOOD COUNT 5.2 10^3/uL (4.0-10.0)
[2019-03-02 17:44] LABS: BLOOD UREA NITROGEN 8 MG/DL (7-18); CALCIUM LEVEL 7.9 MG/DL (8.5-10.1); CARBON DIOXIDE LEVEL 26 MEQ/L (21-32); CHLORIDE LEVEL 98 MEQ/L (98-107); CPK CREATINE PHOSPHOKINASE 3521 U/L (39-308); GLOMERULAR FILTRATION RATE > 60.0 (>60); GLUCOSE, FASTING 128 MG/DL (70-100); POTASSIUM SERUM 3.6 MEQ/L (3.5-5.1); SODIUM LEVEL 133 MEQ/L (136-145)
[2019-03-02] MEDS: diazePAM 5 MG TAB PO PRN (17:48)
[2019-03-03] VITALS (7 sets, daily range): BP systolic 113–127; BP diastolic 64–79
[2019-03-03] MEDS: oxyCODONE 5MG TAB PO PRN ×3 (00:53→17:38)
[2019-03-03 05:47] LABS: BASO % 0.4 % (0.0-1.0); EOS # 0.1 10^3/uL (0.0-0.50); EOS % 1.3 % (0.0-3.0); HEMATOCRIT 25.4 % (42.0-52.0); HEMOGLOBIN 8.4 g/dl (13.5-17.5); LYMPH % 18.2 % (24.0-44.0); MEAN CORPUSCULAR HEMOGLOBIN 29.6 pg (27.0-33.0); MEAN CORPUSCULAR HGB CONC 33.1 g/dl (32.0-36.5); MEAN CORPUSCULAR VOLUME 89.4 fl (80.0-96.0); MONO % 18.2 % (0.0-5.0); NEUTROPHILS # 3.3 10^3/uL (1.8-7.7); PLATELET COUNT, AUTOMATED 379 10^3/uL (150-450); RED BLOOD COUNT 2.84 10^6/uL (4.30-6.10); WHITE BLOOD COUNT 5.4 10^3/uL (4.0-10.0)
[2019-03-03 06:16] LABS: ALT/SGPT 102 U/L (12-78); BILIRUBIN,TOTAL 1.5 MG/DL (0.2-1.0); BLOOD UREA NITROGEN 8 MG/DL (7-18); CALCIUM LEVEL 8.4 MG/DL (8.5-10.1); CARBON DIOXIDE LEVEL 26 MEQ/L (21-32); CHLORIDE LEVEL 98 MEQ/L (98-107); CREATININE FOR GFR 0.78 MG/DL (0.70-1.30); GLOMERULAR FILTRATION RATE > 60.0 (>60); GLUCOSE, FASTING 103 MG/DL (70-100); POTASSIUM SERUM 3.6 MEQ/L (3.5-5.1); SODIUM LEVEL 132 MEQ/L (136-145); TOTAL PROTEIN 5.6 GM/DL (6.4-8.2)
[2019-03-03] MEDS: PANTOPRAZOLE 40MG INJ (PROTONIX) (C9113) IV SCH (08:59)
[2019-03-03] MEDS: OXAZEPAM 10 MG CAP PO SCH ×3 (09:00→20:11)
[2019-03-03] MEDS: ATORVASTATIN 20 MG TAB PO SCH (09:00)
[2019-03-03] MEDS: amLODIPine 10 MG TAB PO SCH (09:00)
[2019-03-03] MEDS: MULTIVITAMINS/MINERALS THERAP 1 TAB PO SCH (09:01)
[2019-03-03] MEDS: FOLIC ACID 1 MG TAB PO SCH (09:01)
[2019-03-03] MEDS: ASPIRIN 81 MG ENTERIC TAB PO SCH (09:01)
[2019-03-03] MEDS: RIVAROXABAN 20 MG TAB (XARELTO) PO SCH (09:01)
[2019-03-03] MEDS: DOCUSATE SODIUM 100 MG CAP PO SCH ×2 (09:01→20:11)
--- NOTE | 2019-03-03 11:07 | IPNPDOC ---
Subjective Date Seen The patient was seen on 03/03/19. Subjective Chief Complaint/HPI Pt without new concerns this morning. Anticipates wound vac change later today. General: Denies: Fatigue Constitutional: Denies: Chills, Fever ENT: Denies: Head Aches Pulmonary: Denies: Dyspnea, Cough Cardiovascular: Denies: Chest Pain, Palpitations Gastrointestinal: Denies: Nausea, Vomiting, Diarrhea Neurological: Reports: Weakness Psych: Reports: Mood Normal Objective Physical Examination General Exam: Positive: Alert, Cooperative, No Acute Distress Neck Exam: Positive: Supple; Negative: Lymphadenopathy Chest Exam: Positive: Clear to auscultation, Normal air movement Heart Exam: Positive: Rate Normal, Regular Rhythm Abdomen Exam: Positive: Normal bowel sounds, Soft; Negative: Tenderness Extremity Exam: Positive: Edema (2 mm pitting BLE), Other (Wound vac right LE) Skin Exam: Positive: Nl turgor and temperature Neuro Exam: Positive: Normal Speech Psych Exam: Positive: Mental status NL, Mood NL, Oriented x 3 A-FIB/CHADSVASC A-FIB History Current/History of A-Fib/PAF?: No Assessment /Plan Assessment 03/03 -- I saw part of his dressing change today, and the tissue under the foam looks really good, without necrotic tissue or signs of infection. He tolerated the vac change well, denies complaints. Since stopping IVFs, he's lost a fair amount of the extra fluid he was given during his hospitalization. They are checking to see if his insurance will cover a stay in the ARU for rehab, and we expect to know by tomorrow. -- CDT Problems (1) Compartment syndrome of lower extremity Status: Acute Problem Text: 03/03 wound vav change today, await rehab 03/02: Morphine ordered prn wound vac change tomorrow. 03/01: Wound vac in place. CK downtrending today. If continues to trend down tomorrow, will stop IVFs in hopes of improving edema. Pain in RLE controlled; wound vac in place. Discussed with Dr. Hardy. 02/28/19: Wound vac in place. His CK continues to trend up. IVK NS at 60/hr 02/27/19: Daily #2 right lower extremity fasciotomy. It sounds as if he may be getting the point where the thinking about enhancing closure closure although it will be by secondary intention. His CK did bump today, but I think this reflects the fact that we reduced his fluid rate, and therefore renal clearance, rather than ongoing release of enzyme. 02/26/19: Day 1 s/p fasciotomy. Patient reports leg pain to be improved from yesterday. We will continue to defer management to vascular surgery 02/25: He was taken urgently to the OR today for fasciotomy. This seems to have gone well. We'll defer further management to vascular surgery. (2) Arterial embolism of leg Status: Acute Problem Text: 02/27/19: He is status post angioplasty of his right lower extremity. We'll continue to defer to vascular surgery. 02/26/19: We will continue to defer management to vascular The TPA had to be stopped because of the surgery. He had multiple attempts at angioplasty which was somewhat successful. He still may need bypass surgery to restore full flow to his lower extremity. We'll defer this management to va scular surgery. (3) Anemia Status: Acute Problem Text: 03/03 Hgb stable 02/28/19: Remains stable, Hgb 8.4 02/27/19: After his transfusion his hemoglobin is stable, slightly rising. We'll continue to monitor carefully. 02/26/19: Hgb 7.0 this morning. He was transfused 1 unit yesterday. Patient to received 2 units of PRBC this morning. We will continue to monitor (4) Alcohol withdrawal Status: Acute Problem Text: 02/27/19: The CIWA protocol remains in place, but has not been needed. He remains on oxazepam 15 mg 3 times a day. We'll continue this dose through tomorrow. Starting Sunday, 03/01, I will reduce his dose to 10 mg 3 times a day. Ultimately I think we should taper him off of this medication. 02/26/19: Stable He remains stable on Oxazepam, ativan prn. CIWA protocol in place. (5) Alcoholism Status: Chronic Problem Text: 20+ year drinker. CIWA protocol and Oxazepam/Lorazepam in place. (6) Elevated LFTs Status: Acute Problem Text: 02/28/19: AST 263, ALT 116, TB 0.9, Albumin 2.1. Total protein 5.5, platelets 160 Liver U/S: Scanning through the right upper quadrant of the abdomen demonstrates sludge in a mildly dilated gallbladder. No stone is seen. Common bile duct is normal measuring 0.6 cm in greatest diameter. The gallbladder measures up to 10.4 cm in diameter. No pericholecystic fluid or gallbladder wall thickening is seen. No focal liver lesion is appreciated. There is evidence of mild fatty infiltration. The liver is not felt to be enlarged. Limited views of the pancreas show no abnormality. There is no evidence of ascites or right renal abnormality. The right kidney measures 11.6 x 6.0 x 5.0 cm. We have not checked his LFTs in a couple days. I will look at this tomorrow. (7) Hypertension Status: Chronic Response to Treatment: Stable Problem Text: His blood pressure is currently well controlled, continue amlodipine. (8) Smoker Status: Chronic Problem Text: Chronic smoker: 1ppd for 20+ years. Unable to place Nicotine patch due to recent TPA treatment and the need for him to heal as efficiently as possible. Plan/VTE VTE Prophylaxis Ordered?: Yes (Xarelto ) VTE Exclusion Mechanical Proph: Patient on IV Heparin VTE Exclusion Pharmacological: IV Heparin Therapy VS, I&O, 24H, Fishbone Vital Signs/I&O Vital Signs Date Time Temp Pulse Resp B/P (MAP) Pulse Ox O2 Delivery O2 Flow Rate FiO2 03/03/19 10:11 12 03/03/19 10:00 97.9 88 124/72 (89) 98 02/26/19 19:00 Room Air 02/25/19 16:00 I&O- Last 24 Hours up to 6 AM 03/03/19 06:00 Intake Total 5472 ml Output Total 2425 ml Balance 3047 ml Laboratory Data 24H LABS Laboratory Tests 2 03/02/19 16:57: Nucleated Red Blood Cells % (auto) 0.0, Anion Gap 9, Glomerular Filtration Rate > 60.0, Blood Urea Nitrogen 8, Creatinine 0.80, Sodium Level 133L, Potassium Level 3.6, Chloride Level 98, Carbon Dioxide Level 26, Calcium Level 7.9L, Total Creatine Kinase 3521H 03/03/19 05:18: Nucleated Red Blood Cells % (auto) 0.0, Anion Gap 8, Glomerular Filtration Rate > 60.0, Blood Urea Nitrogen 8, Creatinine 0.78, Sodium Level 132L, Potassium Level 3.6, Chloride Level 98, Carbon Dioxide Level 26, Calcium Level 8.4L, Immature Granulocyte % (Auto) 0.9, White Blood Count 5.4, Red Blood Count 2.84L, Hemoglobin 8.4L, Hematocrit 25.4L, Mean Corpuscular Volume 89.4, Mean Corpuscular Hemoglobin 29.6, Mean Corpuscular Hemoglobin Concent 33.1, Red Cell Distribution Width 15.9H, Platelet Count 379, Neutrophils (%) (Auto) 61.0, Lymphocytes (%) (Auto) 18.2L, Monocytes (%) (Auto) 18.2H, Eosinophils (%) (Auto) 1.3, Basophils (%) (Auto) 0.4, Neutrophils # (Auto) 3.3, Lymphocytes # (Auto) 1.0L, Monocytes # (Auto) 1.0H, Eosinophils # (Auto) 0.1, Basophils # (Auto) 0.0, Aspartate Amino Transf (AST/SGOT) 128H, Alanine Aminotransferase (ALT/SGPT) 102H, Alkaline Phosphatase 108, Total Bilirubin 1.5H, Total Protein 5.6L, Albumin 2.0L, Albumin/Globulin Ratio 0.56L CBC/BMP Laboratory Tests 03/02/19 16:57 Red Blood Count 2.79 L, Mean Corpuscular Volume 90.3, Mean Corpuscular Hemoglobin 29.7, Mean Corpuscular Hemoglobin Concent 32.9, Red Cell Distribution Width 15.9 H, Calcium Level 7.9 L 03/03/19 05:18 Red Blood Count 2.84 L, Mean Corpuscular Volume 89.4, Mean Corpuscular Hemoglobin 29.6, Mean Corpuscular Hemoglobin Concent 33.1, Red Cell Distribution Width 15.9 H, Calcium Level 8.4 L, Neutrophils (%) (Auto) 61.0, Lymphocytes (%) (Auto) 18.2 L, Monocytes (%) (Auto) 18.2 H, Eosinophils (%) (Auto) 1.3, Basophils (%) (Auto) 0.4, Neutrophils # (Auto) 3.3, Lymphocytes # (Auto) 1.0 L, Monocytes # (Auto) 1.0 H, Eosinophils # (Auto) 0.1, Basophils # (Auto) 0.0, Aspartate Amino Transf (AST/SGOT) 128 H, Alanine Aminotransferase (ALT/SGPT) 102 H, Alkaline Phosphatase 108, Total Bilirubin 1.5 H, Total Protein 5.6 L, Albumin 2.0 L DAGO MARTE PA-C March 03, 2019 11:07 REZA DE JESUS DO March 03, 2019 18:16
[2019-03-03] MEDS ORDERED: MORPHINE 4 MG/ML 1ML VIAL/SYRINGE (J2270) IV ONE (14:30)
[2019-03-03] MEDS: diazePAM 5 MG TAB PO PRN (16:28)
[2019-03-04 02:00] VITALS: BP 110/65
[2019-03-04] MEDS: oxyCODONE 5MG TAB PO PRN ×2 (04:16→15:11)
[2019-03-04 05:51] LABS: BASO % 0.3 % (0.0-1.0); EOS # 0.1 10^3/uL (0.0-0.50); EOS % 1.2 % (0.0-3.0); HEMATOCRIT 25.6 % (42.0-52.0); HEMOGLOBIN 8.5 g/dl (13.5-17.5); LYMPH # 0.9 10^3/uL (1.5-4.5); LYMPH % 15.3 % (24.0-44.0); MEAN CORPUSCULAR HEMOGLOBIN 29.7 pg (27.0-33.0); MEAN CORPUSCULAR HGB CONC 33.2 g/dl (32.0-36.5); MEAN CORPUSCULAR VOLUME 89.5 fl (80.0-96.0); MONO # 0.7 10^3/uL (0.0-0.8); MONO % 11.9 % (0.0-5.0); NEUTROPHILS # 4.1 10^3/uL (1.8-7.7); NEUTROPHILS % 70.6 % (36.0-66.0); PLATELET COUNT, AUTOMATED 461 10^3/uL (150-450); RED BLOOD COUNT 2.86 10^6/uL (4.30-6.10); WHITE BLOOD COUNT 5.8 10^3/uL (4.0-10.0)
[2019-03-04 06:00] VITALS: BP 118/65
[2019-03-04 06:22] LABS: ALBUMIN 1.9 GM/DL (3.2-5.2); ALT/SGPT 100 U/L (12-78); BILIRUBIN,TOTAL 1.8 MG/DL (0.2-1.0); BLOOD UREA NITROGEN 9 MG/DL (7-18); CALCIUM LEVEL 8.3 MG/DL (8.5-10.1); CARBON DIOXIDE LEVEL 26 MEQ/L (21-32); CHLORIDE LEVEL 98 MEQ/L (98-107); CREATININE FOR GFR 0.74 MG/DL (0.70-1.30); GLOMERULAR FILTRATION RATE > 60.0 (>60); GLUCOSE, FASTING 109 MG/DL (70-100); POTASSIUM SERUM 3.7 MEQ/L (3.5-5.1); SODIUM LEVEL 133 MEQ/L (136-145); TOTAL PROTEIN 5.6 GM/DL (6.4-8.2)
[2019-03-04 08:19] VITALS: BP 149/79
[2019-03-04 08:24] VITALS: BP 149/79
[2019-03-04] MEDS: DOCUSATE SODIUM 100 MG CAP PO SCH (08:24)
[2019-03-04] MEDS: OXAZEPAM 10 MG CAP PO SCH ×2 (08:24→15:11)
[2019-03-04] MEDS: FOLIC ACID 1 MG TAB PO SCH (08:24)
[2019-03-04] MEDS: amLODIPine 10 MG TAB PO SCH (08:24)
[2019-03-04] MEDS: ASPIRIN 81 MG ENTERIC TAB PO SCH (08:24)
[2019-03-04] MEDS: PANTOPRAZOLE 40MG INJ (PROTONIX) (C9113) IV SCH (08:25)
[2019-03-04] MEDS: ATORVASTATIN 20 MG TAB PO SCH (08:25)
[2019-03-04] MEDS: MULTIVITAMINS/MINERALS THERAP 1 TAB PO SCH (08:25)
[2019-03-04] MEDS: RIVAROXABAN 20 MG TAB (XARELTO) PO SCH (08:25)
--- NOTE | 2019-03-04 09:12 | IPNPDOC ---
Subjective Date Seen The patient was seen on 03/04/19. Subjective Chief Complaint/HPI Pt doing well this morning. No new concerns. Less swelling in BLE. General: Denies: Fatigue Constitutional: Denies: Chills, Fever ENT: Denies: Head Aches Skin: Denies: Rash Pulmonary: Denies: Dyspnea, Cough Cardiovascular: Denies: Chest Pain, Palpitations Gastrointestinal: Denies: Nausea, Vomiting, Diarrhea Neurological: Reports: Weakness Psych: Reports: Mood Normal Objective Physical Examination General Exam: Positive: Alert, Cooperative, No Acute Distress Neck Exam: Positive: Supple; Negative: Lymphadenopathy Chest Exam: Positive: Clear to auscultation, Normal air movement Heart Exam: Positive: Rate Normal, Regular Rhythm Abdomen Exam: Positive: Normal bowel sounds, Soft; Negative: Tenderness Extremity Exam: Positive: Edema (2 mm pitting BLE), Other (Wound vac right LE) Skin Exam: Positive: Nl turgor and temperature Neuro Exam: Positive: Normal Speech Psych Exam: Positive: Mental status NL, Mood NL, Oriented x 3 A-FIB/CHADSVASC A-FIB History Current/History of A-Fib/PAF?: No Assessment /Plan Problems (1) Compartment syndrome of lower extremity Status: Acute Response to Treatment: Stable, Improving Problem Text: 03/04 medically stable, await ARU/STR bed availability 03/03 wound vav change today, await rehab 03/02: Morphine ordered prn wound vac change tomorrow. 03/01: Wound vac in place. CK downtrending today. If continues to trend down tomorrow, will stop IVFs in hopes of improving edema. Pain in RLE controlled; wound vac in place. Discussed with Dr. Hardy. 02/28/19: Wound vac in place. His CK continues to trend up. IVK NS at 60/hr 02/27/19: Daily #2 right lower extremity fasciotomy. It sounds as if he may be getting the point where the thinking about enhancing closure closure although it will be by secondary intention. His CK did bump today, but I think this reflects the fact that we reduced his fluid rate, and therefore renal clearance, rather than ongoing release of enzyme. 02/26/19: Day 1 s/p fasciotomy. Patient reports leg pain to be improved from yesterday. We will continue to defer management to vascular surgery 02/25: He was taken urgently to the OR today for fasciotomy. This seems to have gone well. We'll defer further management to vascular surgery. (2) Elevated LFTs Status: Acute Problem Text: 03/04 LFTs trending down, T bili trending up, asymptomatic, monitor. 02/28/19: AST 263, ALT 116, TB 0.9, Albumin 2.1. Total protein 5.5, platelets 160 Liver U/S: Scanning through the right upper quadrant of the abdomen demonstrates sludge in a mildly dilated gallbladder. No stone is seen. Common bile duct is normal measuring 0.6 cm in greatest diameter. The gallbladder measures up to 10.4 cm in diameter. No pericholecystic fluid or gallbladder wall thickening is seen. No focal liver lesion is appreciated. There is evidence of mild fatty infiltration. The liver is not felt to be enlarged. Limited views of the pancreas show no abnormality. There is no evidence of ascites or right renal abnormality. The right kidney measures 11.6 x 6.0 x 5.0 cm. We have not checked his LFTs in a couple days. I will look at this tomorrow. (3) Arterial embolism of leg Status: Acute Response to Treatment: Stable Problem Text: 02/27/19: He is status post angioplasty of his right lower extremity. We'll continue to defer to vascular surgery. 02/26/19: We will continue to defer management to vascular The TPA had to be stopped because of the surgery. He had multiple attempts at angioplasty which was somewhat successful. He still may need bypass surgery to restore full flow to his lower extremity. We'll defer this management to vascular surgery. (4) Anemia Status: Acute Response to Treatment: Stable Problem Text: 03/03 Hgb stable 02/28/19: Remains stable, Hgb 8.4 02/27/19: After his transfusion his hemoglobin is stable, slightly rising. We'll continue to monitor carefully. 02/26/19: Hgb 7.0 this morning. He was transfused 1 unit yesterday. Patient to received 2 units of PRBC this morning. We will continue to monitor (5) Alcohol withdrawal Status: Acute Problem Text: 02/27/19: The CIWA protocol remains in place, but has not been needed. He remains on oxazepam 15 mg 3 times a day. We'll continue this dose through tomorrow. Starting Sunday, 03/01, I will reduce his dose to 10 mg 3 times a day. Ultimately I think we should taper him off of this medication. 02/26/19: Stable He remains stable on Oxazepam, ativan prn. CIWA protocol in place. (6) Alcoholism Status: Chronic Response to Treatment: Stable Problem Text: 20+ year drinker. CIWA protocol and Oxazepam/Lorazepam in place. (7) Hypertension Status: Chronic Response to Treatment: Stable Problem Text: His blood pressure is currently well controlled, continue amlodipine. (8) Smoker Status: Chronic Problem Text: Chronic smoker: 1ppd for 20+ years. Unable to place Nicotine patch due to recent TPA treatment and the need for him to heal as efficiently as possible. Plan/VTE VTE Prophylaxis Ordered?: Yes (Xarelto ) VTE Exclusion Mechanical Proph: Patient on IV Heparin VTE Exclusion Pharmacological: IV Heparin Therapy VS, I&O, 24H, Fishbone Vital Signs/I&O Vital Signs Date Time Temp Pulse Resp B/P (MAP) Pulse Ox O2 Delivery O2 Flow Rate FiO2 03/04/19 08:24 90 149/79 03/04/19 08:19 98.5 12 99 02/26/19 19:00 Room Air I&O- Last 24 Hours up to 6 AM 03/04/19 05:59 Intake Total 1638 ml Output Total 4275 ml Balance -2637 ml Laboratory Data 24H LABS Laboratory Tests 2 03/04/19 05:23: Immature Granulocyte % (Auto) 0.7, White Blood Count 5.8, Red Blood Count 2.86L, Hemoglobin 8.5L, Hematocrit 25.6L, Mean Corpuscular Volume 89.5, Mean Corpuscular Hemoglobin 29.7, Mean Corpuscular Hemoglobin Concent 33.2, Red Cell Distribution Width 15.8H, Platelet Count 461H, Neutrophils (%) (Auto) 70.6H, Lymphocytes (%) (Auto) 15.3L, Monocytes (%) (Auto) 11.9H, Eosinophils (%) (Auto) 1.2, Basophils (%) (Auto) 0.3, Neutrophils # (Auto) 4.1, Lymphocytes # (Auto) 0.9L, Monocytes # (Auto) 0.7, Eosinophils # (Auto) 0.1, Basophils # (Auto) 0.0, Nucleated Red Blood Cells % (auto) 0.0, Anion Gap 9, Glomerular Filtration Rate > 60.0, Blood Urea Nitrogen 9, Creatinine 0.74, Sodium Level 133L, Potassium Level 3.7, Chloride Level 98, Carbon Dioxide Level 26, Calcium Level 8.3L, Aspartate Amino Transf (AST/SGOT) 108H, Alanine Aminotransferase (ALT/SGPT) 100H, Alkaline Phosphatase 118H, Total Bilirubin 1.8H, Total Protein 5.6L, Albumin 1.9L, Albumin/Globulin Ratio 0.51L CBC/BMP Laboratory Tests 03/04/19 05:23 Red Blood Count 2.86 L, Mean Corpuscular Volume 89.5, Mean Corpuscular Hemoglobin 29.7, Mean Corpuscular Hemoglobin Concent 33.2, Red Cell Distribution Width 15.8 H, Neutrophils (%) (Auto) 70.6 H, Lymphocytes (%) (Auto) 15.3 L, Monocytes (%) (Auto) 11.9 H, Eosinophils (%) (Auto) 1.2, Basophils (%) (Auto) 0.3, Neutrophils # (Auto) 4.1, Lymphocytes # (Auto) 0.9 L, Monocytes # (Auto) 0.7, Eosinophils # (Auto) 0.1, Basophils # (Auto) 0.0, Calcium Level 8.3 L, Aspartate Amino Transf (AST/SGOT) 108 H, Alanine Aminotransferase (ALT/SGPT) 100 H, Alkaline Phosphatase 118 H, Total Bilirubin 1.8 H, Total Protein 5.6 L, Albumin 1.9 L DAGO MARTE PA-C March 04, 2019 09:12
[2019-03-04 10:00] VITALS: BP 116/75
[2019-03-04] MEDS ORDERED: ASPI81TAEC PO (11:53)
[2019-03-04] MEDS ORDERED: OXAZ10CA3 PO (11:53)
[2019-03-04] MEDS ORDERED: FOLI1TAB11 PO (11:53)
[2019-03-04] MEDS ORDERED: COLA100C5 PO (11:53)
[2019-03-04] MEDS ORDERED: MYLASSUD PO (11:53)
[2019-03-04] MEDS ORDERED: PEG1POW PO (11:53)
[2019-03-04] MEDS ORDERED: DIAZ5TAB PO (11:53)
[2019-03-04] MEDS ORDERED: OXYCO5TA PO ×2 (11:53)
[2019-03-04] MEDS ORDERED: XARE20TA PO (11:53)
[2019-03-04] MEDS ORDERED: OMEP40CA2 PO (11:53)
[2019-03-04] MEDS ORDERED: VITMTA PO (11:53)
[2019-03-04] MEDS ORDERED: SENN18TA PO (11:53)
[2019-03-04] MEDS ORDERED: ACET1TAB55 PO (11:53)
--- NOTE | 2019-03-04 13:01 | DSES ---
DATE OF ADMISSION: 02/24/2019 DATE OF DISCHARGE: 03/04/2019 PRIMARY CARE PROVIDER: Ann-Marie Worley ATTENDING: Dr. Mahendra Rothman HISTORY: This is a 44-year-old male patient who has a history of nicotine abuse as well as alcohol abuse who presented to [facility] ER with right lower extremity pain, unclear how long his symptoms were ongoing, but had been for quite some time. He reported pain with walking and feeling as though his right foot was cold. CTA showed a total occlusion of the right popliteal artery. He was transferred to [facility] Emergency Department (ED) where he was seen by Dr. Hardy who planned to take the patient to the operating room for catheter guided thrombolytic procedure. The patient was admitted to the hospital for management post procedure. Initial procedure went well, although the patient suffered from compartment syndrome postoperatively and required an additional surgical procedure. Again, also performed by Dr. Hardy. He underwent four compartment fasciotomy of the right calf, right lower extremity arteriogram, angioplasty of the right popliteal artery and tibioperoneal trunk with 4x100 [place] balloon, angioplasty of the right popliteal artery with 5x100 [place] balloon, angioplasty of the anterior tibial artery, peroneal artery and posterior tibial artery with 3x200 [place] balloon completion arteriogram, MYNX closure of the left common femoral artery. Postoperatively, the patient has had wound Vac placement. He is requiring additional physical therapy secondary to living on the third floor of an apartment, significant bilateral lower extremity edema and limited ambulation, as well as, wound Vac. The plan is to transition him to acute rehabilitation for further rehabilitation. He has had alcohol and nicotine cessation counseling. He has been on oxazepam while inpatient to prevent withdrawals. He is taking Xarelto for anticoagulation in addition to baby aspirin. His pain is reasonably well controlled with oxycodone. DISCHARGE DIAGNOSES: 1. Compartment syndrome of the right lower extremity. 2. Arterial embolism of the right lower leg. 3. Anemia. 4. Alcohol withdrawal. 5. Chronic alcohol abuse. 6. Hypertension. 7. Nicotine dependence. 8. Elevated liver function tests. DISCHARGE MEDICATIONS: - acetaminophen 650 mg every 4 hours as needed for pain or fever - Mag Plus 10 mL by mouth daily as needed for dyspepsia - aspirin 81 mg daily - diazepam 5 mg by mouth twice a day as needed for anxiety or discomfort - Colace 100 mg by mouth twice a day - folic acid 1 mg by mouth daily - multivitamin one tablet by mouth daily - omeprazole 40 mg by mouth daily - oxazepam 10 mg by mouth three times a day - oxycodone 5 mg every 4 hours as needed for pain - oxycodone 10 mg every 8 hours as needed for severe pain - MiraLAX 17 grams by mouth daily as needed for constipation - Xarelto 20 mg by mouth daily - senna one tablet by mouth daily as needed for constipation - amlodipine 10 mg daily - atorvastatin 20 mg daily - loratadine 10 mg daily as needed for allergies - thiamine 100 mg daily DISCHARGE PLAN: The patient will be discharged to acute rehabilitation. His diet should be low cholesterol. Activity is as tolerated. edited: 03/05/2019 0723 tkf SHANNOND
[2019-03-04 14:00] VITALS: BP 116/69
[2019-03-13] MEDS ORDERED: OXAZ10CA3 PO (12:53)
[2019-03-13] MEDS ORDERED: OXYCO5TA PO (12:53)
[2019-03-28] MEDS ORDERED: GABA-843 PO (14:05)
== END 2019-03-04 17:25 | DRG 181 ==
LOC: M ED 02:48 → M ED INP 04:13 → M ICU 07:28 → M MSPAV 02-28 14:38
PROVIDERS: ADMIT Surgery Vascular Surgery; ATTEND Family Medicine
PROC: B41F1ZZ Fluoroscopy of Right Lower Extremity Arteries using Low Osmolar Contrast (ICD-10-PCS; 2019-02-24)
PROC: B41F1ZZ Fluoroscopy of Right Lower Extremity Arteries using Low Osmolar Contrast (ICD-10-PCS; 2019-02-24)
PROC: 0J8N0ZZ Division of Right Lower Leg Subcutaneous Tissue and Fascia, Open Approach (ICD-10-PCS; 2019-02-25)
PROC: 047M3ZZ Dilation of Right Popliteal Artery, Percutaneous Approach (ICD-10-PCS; 2019-02-25)
PROC: 0J8N0ZZ Division of Right Lower Leg Subcutaneous Tissue and Fascia, Open Approach (ICD-10-PCS; 2019-02-25)
PROC: 047P3ZZ Dilation of Right Anterior Tibial Artery, Percutaneous Approach (ICD-10-PCS; 2019-02-25)
PROC: 047R3ZZ Dilation of Right Posterior Tibial Artery, Percutaneous Approach (ICD-10-PCS; 2019-02-25)
PROC: 047T3ZZ Dilation of Right Peroneal Artery, Percutaneous Approach (ICD-10-PCS; 2019-02-25)
PROC: 30233N1 Transfusion of Nonautologous Red Blood Cells into Peripheral Vein, Percutaneous Approach (ICD-10-PCS; principal; 2019-02-25 06:52)
DX: I74.3 Embolism and thrombosis of arteries of the lower extremities (principal); M79.A21 Nontraumatic compartment syndrome of right lower extremity; I10 Essential (primary) hypertension; D62 Acute posthemorrhagic anemia; I73.9 Peripheral vascular disease, unspecified; F10.239 Alcohol dependence with withdrawal, unspecified; F17.200 Nicotine dependence, unspecified, uncomplicated; Z79.899 Other long term (current) drug therapy; Z79.82 Long term (current) use of aspirin; E78.00 Pure hypercholesterolemia, unspecified; I97.618 Postprocedural hemorrhage of a circulatory system organ or structure following other circulatory system procedure

== ENCOUNTER 2019-03-04 17:06 | Inpatient (IN) | payer OTHER ==
[~2019-03-04] VITALS: Ht 162.6 cm; Wt 82.4 kg
[~2019-03-04 17:06] MED LIST changes: +ACET1TAB55 PO; +AMLO10TA5 PO; +ASPI81TAEC PO; +ATOR1TAB21 PO; +B-1100TA2 PO; +CLAR10CA3 PO; +CLOTLOT TOP; +COLA100C5 PO; +DIAZ5TAB PO; +MYLASSUD PO; +OMEP40CA2 PO; +OXAZ10CA3 PO; +OXYCO5TA PO; +PEG1POW PO; +SENN18TA PO; +XARE20TA PO
[2019-03-04] MEDS ORDERED: ACETAMINOPHEN TAB 650MG DOSE (2X325MG) PO PRN (17:15)
[2019-03-04] MEDS ORDERED: BISACODYL 5 MG TAB PO PRN (17:15)
[2019-03-04] MEDS ORDERED: ONDANSETRON 4 MG TAB (S0181) PO PRN (17:15)
[2019-03-04] MEDS ORDERED: MAALOX 30 ML SUSP *UDC PO PRN (17:15)
[2019-03-04 17:34] VITALS: BP 123/73
[2019-03-04 20:00] VITALS: BP 119/65
[2019-03-04] MEDS: OXAZEPAM 10 MG CAP PO SCH (20:14)
[2019-03-04] MEDS: DOCUSATE SODIUM 100 MG CAP PO SCH (20:14)
[2019-03-04] MEDS: SENNA 8.6 MG TAB (SENOKOT) PO SCH (20:14)
[2019-03-05] MEDS: oxyCODONE 5MG TAB PO PRN ×4 (00:30→20:40)
[2019-03-05 06:00] VITALS: BP 109/74
[2019-03-05 07:08] LABS: BASO % 0.5 % (0.0-1.0); EOS # 0.1 10^3/uL (0.0-0.50); EOS % 0.9 % (0.0-3.0); HEMATOCRIT 27.1 % (42.0-52.0); HEMOGLOBIN 8.9 g/dl (13.5-17.5); LYMPH # 1.2 10^3/uL (1.5-4.5); LYMPH % 18.1 % (24.0-44.0); MEAN CORPUSCULAR HEMOGLOBIN 29.7 pg (27.0-33.0); MEAN CORPUSCULAR HGB CONC 32.8 g/dl (32.0-36.5); MEAN CORPUSCULAR VOLUME 90.3 fl (80.0-96.0); MONO # 0.7 10^3/uL (0.0-0.8); NEUTROPHILS # 4.6 10^3/uL (1.8-7.7); NEUTROPHILS % 69.7 % (36.0-66.0); PLATELET COUNT, AUTOMATED 604 10^3/uL (150-450); WHITE BLOOD COUNT 6.6 10^3/uL (4.0-10.0)
[2019-03-05 07:33] LABS: ALBUMIN 1.9 GM/DL (3.2-5.2); ALT/SGPT 96 U/L (12-78); BILIRUBIN,TOTAL 1.5 MG/DL (0.2-1.0); BLOOD UREA NITROGEN 11 MG/DL (7-18); CALCIUM LEVEL 8.1 MG/DL (8.5-10.1); CARBON DIOXIDE LEVEL 27 MEQ/L (21-32); CHLORIDE LEVEL 101 MEQ/L (98-107); CREATININE FOR GFR 0.71 MG/DL (0.70-1.30); GLOMERULAR FILTRATION RATE > 60.0 (>60); GLUCOSE, FASTING 103 MG/DL (70-100); POTASSIUM SERUM 4.1 MEQ/L (3.5-5.1); SODIUM LEVEL 134 MEQ/L (136-145); TOTAL PROTEIN 6.1 GM/DL (6.4-8.2)
[2019-03-05] MEDS: ATORVASTATIN 20 MG TAB PO SCH (08:10)
[2019-03-05] MEDS: ASPIRIN 81 MG CHEW TABLET PO SCH (08:10)
[2019-03-05] MEDS: THIAMINE 100 MG TAB PO SCH (08:11)
[2019-03-05] MEDS: MULTIVITAMINS/MINERALS THERAP 1 TAB PO SCH (08:11)
[2019-03-05] MEDS: LORATADINE 10 MG TAB PO SCH (08:11)
[2019-03-05] MEDS: amLODIPine 10 MG TAB PO SCH (08:11)
[2019-03-05] MEDS: DOCUSATE SODIUM 100 MG CAP PO SCH ×2 (08:12→20:39)
[2019-03-05] MEDS: FOLIC ACID 1 MG TAB PO SCH (08:12)
[2019-03-05] MEDS: OMEPRAZOLE 20 MG CAP PO SCH (08:12)
[2019-03-05] MEDS: OXAZEPAM 10 MG CAP PO SCH ×3 (08:12→20:39)
--- NOTE | 2019-03-05 12:09 | HPEPDOC ---
Director Sales Note DATE OF ADMISSION: March 04, 2019 at 17:30 SOURCE OF ADMISSION INFORMATION: patient and [facility] records CHIEF COMPLAINT: right foot drop secondary to compartment syndrome as complication of popliteal artery occlusion revascularization HISTORY OF PRESENT ILLNESS: 44M pmh ETOH abuse with hx of withdrawals who presented to [facility] on 02/24/19 complaining of right lower extremity pain and coldness with difficulty walking, CTA showed a total right popliteal artery occlusion so he was placed on a Heparin drip and sent urgently to [facility]. Upon arrival he was evaluated by Dr. Guzmán who performed a right lower extremity arteriogram with placement of a TPA thrombolysis catheter into the right popliteal artery. He was maintained post-operatively on heparin and intravascular TPA via his left groin and underwent a repeat arteriogram later that day. 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 Later that evening the patient was noted to have acute right calf pain, paresthesias, and diminished pulses for which he was diagnosed with compartment syndrome and underwent a 4 compartment fasciotomy and angioplasty of the right popliteal artery. Patient had a wound vac placed and changed three times a week with plan for skin graft 2-3 weeks out from surgery. Per [facility] protocol he was maintained on Oxazepam and had persistent anemia likely due to chronic disease and hyponatremia likely due to ETOH-abuse. He was evaluated by therapy, found to have deficits in gait and ADL and deemed medically appropriate for discharge to ARU on 03/04/19. REVIEW OF SYSTEMS: The following is a completed review of systems and has been reviewed. Review of systems otherwise unremarkable. PAIN: Patient self reports right calf pain EYES: Negative for recent vision changes EARS, NOSE, & THROAT: Denies rhinorrhea, dysphagia or hearing loss CARDIOVASCULAR: denies chest pain or palpitations PULMONARY: Negative. Denies shortness of breath. GASTROINTESTINAL: Negative for diarrhea or constipation GENITOURINARY: denies dysuria MUSCULOSKELETAL: right foot drop and s/p right calf fasciotomy NEUROLOGICAL: no seizure activity or tremors HEMATOLOGICAL:+ anemia SKIN: right LE fasciotomy with wound vac PSYCHIATRIC: Unremarkable All other review of systems found to be negative. PAST MEDICAL HISTORY: as per HPI PAST SURGICAL HISTORY: as per HPI ALLERGIES: Please see below. MEDICATIONS: Please see below. SOCIAL HISTORY: +ETOH abuse, +smoker, no illicit drugs DIET: low sodium PHYSICAL EXAMINATION: VITAL SIGNS: Please see below. GENERAL: Pleasant and cooperative. No acute distress. HEENT: PERRL. Extraocular movements intact. scleral icterus CARDIOVASCULAR: Regular rate and rhythm. No murmurs, rubs, or gallops LUNGS: Clear to auscultation bilaterally. No wheezes. No rhonchi ABDOMEN: Soft, nontender, nondistended. Positive bowel sounds. Normal active bowel sounds NEUROLOGICAL: Alert and oriented times three. Cranial nerves II through XII grossly intact. Sensation grossly intact in all 4 limbs, though slightly decreased in right foot EXTREMITIES: 5\5 strength bilateral upper extremities. 5\5 strength right hip flexion and knee extension 3/5 ankle eversion and inversion, 1/5 ankle DF. 5/5 left LE right foot edematous SKIN: right lateral and anterior tibial fasciotomies with wound vac- left lower abdomen ecchymotic IMAGING: Imaging documentation personally reviewed by record FUNCTIONAL STATUS: Premorbid: Independent with all activities of daily life as well as mobility On Admission: Able to ambulate 10 feet contact guard with RW, limited by pain, CG for functional transfers, Total assist for lower body dressing GOALS: Mod-I with Rw for ambulation, stairs, dynamic balance, dressing, bathing, toileting, medical optimization, assess for DMEs. ASSESSMENT:44-year-old M with past medical history of ETOH abuse who presents status post right popliteal artery occlusion s/p revascularization complicated by compartment syndrome s/p fasciotomy with right foot drop. PLAN: 1. Rehab: PT, OT, assess for DME needs, TTWB to [facility] 2. Neuro: monitor for delirium tremens, currently on Serax, denies visual hallucinations, no tremor, vitals stable -c/u thiamine and folate 3. CArdio: pmh HLD c/u statin, pmh HTN c/u Norvasc s/p right popliteal artery occlusion and revascularization 02/24 complicated by compartment syndrome s/p fasciotomy 02/25/[address] Guzmán-will consult and will need outpatient f/u- c/u XArelto and ASA 4. 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 Pain: c/u oxycodone and tylenol 6. SKin: wound vac changes M-W-F, plan for skin graft in the next 2-3 weeks per vascular recs 7. DVT ppx: on full dose Xarelto for recent popliteal artery occlusion 8. Heme: anemia c/u iron supplements, consider transfusion if <8 9. GI ppx: Protonix 10. Dispo: TBD POST ADMISSION PHYSICIAN EVALUATION: Medical and functional status: Description of medical status, medical assessment: As above. Rehabilitation diagnosis and current and prior cold morbid medical conditions as above. Risk of complications and plans to mitigate them as above. Description of functional status current status is as above. Prior status as above. Status compared to preadmission: There are no clinically significant differences between the patient's current status and the information described on the preadmission screening document. Treatment plan anticipated: Treatment plan is as described above. Required disciplines including physical therapy, occupational therapy, others as noted above. Intensity of services: 3 hours a day, 6 days a week. Special considerations: There are no specific special or safety considerations that would likely preclude immediate implementation of an intensive rehabilitation program or subsequently influence the plan of care ATTESTATION: Considering all the information above, it is my best judgment that this patient requires intensive rehabilitation therapy as described above and an inpatient hospital environment due to the complexity of nursing, medical, and rehabilitation needs required by the patient. Furthermore, this patient can reasonably be expected to participate in an benefit from an inpatient rehabilitation stay with an interdisciplinary team approach to the delivery of rehabilitation care under the direction and supervision of rehabilitation physician. PROGNOSIS: Excellent ESTIMATED LENGTH OF STAY:10-12 days. PROJECTED DISCHARGE DESTINATION: Home with family support and any durable medical equipment required to increase functional safety and mobility TIME SPENT COUNSELING AND COORDINATING INITIAL CARE: Greater than 70 minutes. Vital Signs Vital Sign - Last 24 Hours 03/04/19 03/04/19 03/05/19 03/05/19 17:34 20:00 00:30 01:00 Temp 98.6 99.4 Pulse 87 90 Resp 18 18 18 18 B/P (MAP) 123/73 (90) 119/65 (83) Pulse Ox 99 98 03/05/19 03/05/19 03/05/19 06:00 08:11 08:13 Temp 97.9 Pulse 87 81 Resp 17 18 B/P (MAP) 109/74 (86) 138/76 Pulse Ox 94 Laboratory Data CBC/BMP Laboratory Tests 5/22/19 06:26 Red Blood Count 3.00 L, Mean Corpuscular Volume 90.3, Mean Corpuscular Hemoglobin 29.7, Mean Corpuscular Hemoglobin Concent 32.8, Red Cell Distribution Width 16.0 H, Neutrophils (%) (Auto) 69.7 H, Lymphocytes (%) (Auto) 18.1 L, Monocytes (%) (Auto) 10.0 H, Eosinophils (%) (Auto) 0.9, Basophils (%) (Auto) 0.5, Neutrophils # (Auto) 4.6, Lymphocytes # (Auto) 1.2 L, Monocytes # (Auto) 0.7, Eosinophils # (Auto) 0.1, Basophils # (Auto) 0.0, Calcium Level 8.1 L, Aspartate Amino Transf (AST/SGOT) 83 H, Alanine Aminotransferase (ALT/SGPT) 96 H, Alkaline Phosphatase 124 H, Total Bilirubin 1.5 H, Total Protein 6.1 L, Albumin 1.9 L Labs 24H Laboratory Tests 2 03/05/19 06:26: Immature Granulocyte % (Auto) 0.8, White Blood Count 6.6, Red Blood Count 3.00L, Hemoglobin 8.9L, Hematocrit 27.1L, Mean Corpuscular Volume 90.3, Mean Corpuscular Hemoglobin 29.7, Mean Corpuscular Hemoglobin Concent 32.8, Red Cell Distribution Width 16.0H, Platelet Count 604H, Neutrophils (%) (Auto) 69.7H, Lymphocytes (%) (Auto) 18.1L, Monocytes (%) (Auto) 10.0H, Eosinophils (%) (Auto) 0.9, Basophils (%) (Auto) 0.5, Neutrophils # (Auto) 4.6, Lymphocytes # (Auto) 1.2L, Monocytes # (Auto) 0.7, Eosinophils # (Auto) 0.1, Basophils # (Auto) 0.0, Nucleated Red Blood Cells % (auto) 0.0, Anion Gap 6L, Glomerular Filtration Rate > 60.0, Blood Urea Nitrogen 11, Creatinine 0.71, Sodium Level 134L, Potassium Level 4.1, Chloride Level 101, Carbon Dioxide Level 27, Calcium Level 8.1L, A spartate Amino Transf (AST/SGOT) 83H, Alanine Aminotransferase (ALT/SGPT) 96H, Alkaline Phosphatase 124H, Total Bilirubin 1.5H, Total Protein 6.1L, Albumin 1.9L, Albumin/Globulin Ratio 0.45L Home Medications Scheduled Amlodipine Besylate (Amlodipine Besylate) 10 Mg Tablet, 10 MG PO DAILY, (Reported) Aspirin (Aspirin EC) 81 Mg Tablet.dr, 81 MG PO QAM Atorvastatin Calcium (Atorvastatin Calcium) 20 Mg Tablet, 20 MG PO DAILY, (Reported) Docusate Sodium (Colace) 100 Mg Capsule, 100 MG PO BID Folic Acid (Folic Acid) 1 Mg Tablet, 1 MG PO DAILY Multivitamins (Thera M Plus Tablet) 1 Each Tablet, 1 TAB PO DAILY Omeprazole (Omeprazole) 40 Mg Capsule.dr, 40 MG PO DAILY Oxazepam (Oxazepam) 10 Mg Capsule, 10 MG PO TID Rivaroxaban (Xarelto) 20 Mg Tablet, 20 MG PO DAILY@0800 Thiamine HCl (Vitamin B-1) 100 Mg Tablet, 100 MG PO DAILY, (Reported) Scheduled PRN Acetaminophen (Acetaminophen) 325 Mg Tablet, 650 MG PO Q4H PRN for PAIN OR FEVER Aluminum/Magnesium/Simeth (Mag-Al Plus Suspension) 30 Ml Oral.susp, 10 ML PO DAILY PRN for DYSPEPSIA Diazepam (Diazepam) 5 Mg Tablet, 5 MG PO BIDP PRN for PAIN OR DISCOMFORT Loratadine (Claritin) 10 Mg Capsule, 10 MG PO DAILY PRN for ALLERGIES, (Reported) Oxycodone HCl (Oxycodone HCl) 5 Mg Tablet, 5 MG PO Q4HP PRN for PAIN SCALE 1-5 Oxycodone HCl (Oxycodone HCl) 5 Mg Tablet, 10 MG PO Q8H PRN for SEVERE PAIN (PS 8-10) Polyethylene Glycol 3350 (Polyethylene Glycol 3350) 17 Gm Powd.pack, 1 PKT PO DAILYPRN PRN for CONSTIPATION Senna (Senna Lax) 8.6 Mg Tablet, 1 TAB PO DAILYPRN PRN for CONSTIPATION Allergies Coded Allergies: No Known Allergies (Unverified , 11/12/17) A-FIB/CHADSVASC A-FIB History Current/History of A-Fib/PAF?: No PAT HAYWOOD MD March 05, 2019 12:09
--- NOTE | 2019-03-05 12:16 | IPNPDOC ---
PM&R Progress Note DATE OF SERVICE: March 05, 2019 [employer] Progress Note Subjective: PAtient reports he slept well and would like to be pre-medicated before the wound vac change this afternoon. REVIEW OF SYSTEMS: The following is a completed review of systems and has been reviewed. Review of systems otherwise unremarkable. PAIN: Patient self reports right calf pain EYES: Negative for recent vision changes EARS, NOSE, & THROAT: Denies rhinorrhea, dysphagia or hearing loss CARDIOVASCULAR: denies chest pain or palpitations PULMONARY: Negative. Denies shortness of breath. GASTROINTESTINAL: Negative for diarrhea or constipation GENITOURINARY: denies dysuria MUSCULOSKELETAL: right foot drop and s/p right calf fasciotomy NEUROLOGICAL: no seizure activity or tremors HEMATOLOGICAL:+ anemia SKIN: right LE fasciotomy with wound vac PSYCHIATRIC: Unremarkable All other review of systems found to be negative. PHYSICAL EXAMINATION: VITAL SIGNS: Please see below. GENERAL: Pleasant and cooperative. No acute distress. HEENT: PERRL. Extraocular movements intact. scleral icterus CARDIOVASCULAR: Regular rate and rhythm. No murmurs, rubs, or gallops LUNGS: Clear to auscultation bilaterally. No wheezes. No rhonchi ABDOMEN: Soft, nontender, nondistended. Positive bowel sounds. Normal active bowel sounds NEUROLOGICAL: Alert and oriented times three. Cranial nerves II through XII grossly intact. Sensation grossly intact in all 4 limbs, though slightly decreased in right foot EXTREMITIES: 5\5 strength bilateral upper extremities. 5\5 strength right hip flexion and knee extension 3/5 ankle eversion and inversion, 1/5 ankle DF. 5/5 left LE right foot edematous SKIN: right lateral and anterior tibial fasciotomies with wound vac- left lower abdomen ecchymotic ASSESSMENT:44-year-old M with past medical history of ETOH abuse who presents status post right popliteal artery occlusion s/p revascularization complicated by compartment syndrome s/p fasciotomy with right foot drop. PLAN: 1. Rehab: PT, OT, assess for DME needs, TTWB to RLE 2. Neuro: monitor for delirium tremens, currently on Serax, denies visual hallucinations, no tremor, vitals stable -c/u thiamine and folate 3. CArdio: pmh HLD c/u statin, pmh HTN c/u Norvasc s/p right popliteal artery occlusion and revascularization 02/24 complicated by compartment syndrome s/p fasciotomy 02/25/[address] Guzmán-will consult and will need outpatient f/u- c/u XArelto and ASA 4. 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 Pain: c/u oxycodone and tylenol 6. SKin: wound vac changes M-W-, plan for skin graft in the next 2-3 weeks per vascular recs- acewrap and elevate right foot when in bed 7. DVT ppx: on full dose Xarelto for recent popliteal artery occlusion 8. Heme: anemia c/u iron supplements, consider transfusion if <8 9. GI ppx: Omeprazole 10. Dispo: TBD Allergies Coded Allergies: No Known Allergies (Unverified , 11/12/17) Vital Signs Vital Signs Date Time Temp Pulse Resp B/P (MAP) Pulse Ox O2 Delivery O2 Flow Rate FiO2 03/05/19 08:13 18 03/05/19 08:11 81 138/76 03/05/19 06:00 97.9 94 Laboratory Data CBC/BMP Laboratory Tests 03/05/19 06:26 Red Blood Count 3.00 L, Mean Corpuscular Volume 90.3, Mean Corpuscular Hemoglobin 29.7, Mean Corpuscular Hemoglobin Concent 32.8, Red Cell Distribution Width 16.0 H, Neutrophils (%) (Auto) 69.7 H, Lymphocytes (%) (Auto) 18.1 L, M onocytes (%) (Auto) 10.0 H, Eosinophils (%) (Auto) 0.9, Basophils (%) (Auto) 0.5, Neutrophils # (Auto) 4.6, Lymphocytes # (Auto) 1.2 L, Monocytes # (Auto) 0.7, Eosinophils # (Auto) 0.1, Basophils # (Auto) 0.0, Calcium Level 8.1 L, Aspartate Amino Transf (AST/SGOT) 83 H, Alanine Aminotransferase (ALT/SGPT) 96 H, Alkaline Phosphatase 124 H, Total Bilirubin 1.5 H, Total Protein 6.1 L, Albumin 1.9 L Labs 24H Laboratory Tests 2 03/05/19 06:26: Immature Granulocyte % (Auto) 0.8, White Blood Count 6.6, Red Blood Count 3.00L, Hemoglobin 8.9L, Hematocrit 27.1L, Mean Corpuscular Volume 90.3, Mean Corpuscular Hemoglobin 29.7, Mean Corpuscular Hemoglobin Concent 32.8, Red Cell Distribution Width 16.0H, Platelet Count 604H, Neutrophils (%) (Auto) 69.7H, Lymphocytes (%) (Auto) 18.1L, Monocytes (%) (Auto) 10.0H, Eosinophils (%) (Auto) 0.9, Basophils (%) (Auto) 0.5, Neutrophils # (Auto) 4.6, Lymphocytes # (Auto) 1.2L, Monocytes # (Auto) 0.7, Eosinophils # (Auto) 0.1, Basophils # (Auto) 0.0, Nucleated Red Blood Cells % (auto) 0.0, Anion Gap 6L, Glomerular Filtration Rate > 60.0, Blood Urea Nitrogen 11, Creatinine 0.71, Sodium Level 134L, Potassium Level 4.1, Chloride Level 101, Carbon Dioxide Level 27, Calcium Level 8.1L, Aspartate Amino Transf (AST/SGOT) 83H, Alanine Aminotransferase (ALT/SGPT) 96H, Alkaline Phosphatase 124H, Total Bilirubin 1.5H, Total Protein 6.1L, Albumin 1.9L, Albumin/Globulin Ratio 0.45L Current Medications Current Medications Current Medications Acetaminophen (Tylenol Tab) 650 mg Q4HP PRN PO MILD PAIN (PS 1-4); Start 03/04/19 at 17:15 Al Hydrox/Mg Hydrox/Simethicone (Mylanta) 30 ml Q4HP PRN PO DYSPEPSIA; Start 03/04/19 at 17:15 Amlodipine Besylate (Norvasc) 10 mg DAILY PO Last administered on 03/05/19at 08:11; Start 03/05/19 at 09:00 Aspirin (Aspirin Chewable) 81 mg DAILY PO Last administered on 03/05/19at 08:10; Start 03/05/19 at 09:00 Atorvastatin Calcium (Lipitor) 20 mg DAILY PO Last administered on 03/05/19at 08:10; Start 03/05/19 at 09:00 Bisacodyl (Dulcolax Tab) 5 mg DAILYPRN PRN PO CONSTIPATION; Start 03/04/19 at 17:15 Docusate Sodium (Colace) 100 mg BID PO Last administered on 03/05/19 08:12; Start 03/04/19 at 21:00 Folic Acid (Folic Acid) 1 mg DAILY PO Last administered on 03/05/19 08:12; Start 03/05/19 at 09:00 Loratadine (Claritin) 10 mg DAILY PO Last administered on 03/05/19 08:11; Start 03/05/19 at 09:00 Multivitamins (Theragram-M) 1 tab DAILY PO Last administered on 03/05/19 08:11; Start 03/05/19 at 09:00 Omeprazole (PriLOSEC) 40 mg DAILY PO Last administered on 03/05/19 08:12; Start 03/05/19 at 09:00 Ondansetron HCl (Zofran) 4 mg Q6HP PRN PO NAUSEA; Start 03/04/19 at 17:15 Oxazepam (Serax) 10 mg TID PO Last administered on 03/05/19 08:12; Start 03/04/19 at 21:00 Oxycodone HCl (Roxicodone, Oxyir) 5 mg Q4HP PRN PO PAIN; Start 03/04/19 at 17:15 Oxycodone HCl (Roxicodone, Oxyir) 10 mg Q4HP PRN PO SEVERE PAIN (PS 8-10) Last administered on 03/05/19 08:13; Start 03/04/19 at 17:45 Rivaroxaban (Xarelto) 20 mg DAILY@0800 PO ; Start 03/05/19 at 08:00 Senna (Senokot) 1 tab QHS PO Last administered on 03/04/19at 20:14; Start 03/04/19 at 21:00 Thiamine HCl (Thiamine HCl) 100 mg DAILY PO Last administered on 03/05/19 08:11; Start 03/05/19 at 09:00 A-FIB/CHADSVASC A-FIB History Current/History of A-Fib/PAF?: No PAT HAYWOOD MD March 05, 2019 12:16
[2019-03-05 14:00] VITALS: BP 137/77
[2019-03-05] MEDS ORDERED: oxyCODONE 5MG TAB PO ONE (14:00)
--- NOTE | 2019-03-05 15:45 | IPNPDOC ---
Date Seen The patient was seen on 03/05/19. Progress Note Vascular Surgery Dr Guzmán. HPI: 44 yo M with RLE pain, CTA showed a total occlusion of the right popliteal artery. S/P catheter guided thrombolytic procedure, complicated by compartment s yndrome postoperatively, s/p fasciotomy of the right calf. RLE angiogram with angioplasty of the right popliteal artery, anterior tibial artery, peroneal artery and posterior tibial artery. Postoperatively, the patient has had wound Vac placement. The pt wound vacs have been changed today, pt tolerated well. Pt with BLE edema, improves with elevation. Denies any fevers, chills, weakness, fatigue, Headache, Chest Pain, Shortness of breath, cough, palpitations, abdominal pain, N/V/D or changes in bowel or bladder habits. PE: GEN: 44yoM, appears stated age. Alert and oriented x 3. Pleasant, interactive. HEENT: Normocephalic, atraumatic. Sclera are nonicteric. Conjunctiva without injection. Moist mucous membranes. CHEST: Regular rate and rhythm, +S1, +S2 LUNGS: Clear to auscultation bilaterally. No wheezes, rales, or rhonchi. ABD: Round, soft, non-tender, non-distended. +Bowel sounds throughout. EXT: RLE pulses obtained with doppler. Wound vac in place. SKIN: [place], dry, warm. No rashes. NEURO: Alert and oriented x 3. Cranial nerves III-XII are intact. No focal deficits appreciated. A&P: 44 yo M with RLE pain, CTA showed a total occlusion of the right popliteal artery. S/P catheter guided thrombolytic procedure, complicated by compartment s yndrome postoperatively, s/p fasciotomy of the right calf. RLE angiogram with angioplasty of the right popliteal artery, anterior tibial artery, peroneal artery and posterior tibial artery. Postoperatively, the patient has had wound Vac placement. 1. Continue vac changes Q MWF. 2. Continue PT/OT. 3. Possibly consider skin graft as per Dr Guzmán 2-3 weeks. A-FIB/CHADSVASC A-FIB History Current/History of A-Fib/PAF?: No VS, I&O, 24H, Fishbone Vital Signs/I&O Vital Signs Date Time Temp Pulse Resp B/P (MAP) Pulse Ox O2 Delivery O2 Flow Rate FiO2 03/05/19 14:00 98.0 83 20 137/77 (97) 100 I&O- Last 24 Hours up to 6 AM 03/05/19 06:00 Intake Total 720 ml Output Total 1550 ml Balance -830 ml Laboratory Data 24H LABS Laboratory Tests 2 03/05/19 06:26: Immature Granulocyte % (Auto) 0.8, White Blood Count 6.6, Red Blood Count 3.00L, Hemoglobin 8.9L, Hematocrit 27.1L, Mean Corpuscular Volume 90.3, Mean Corpuscular Hemoglobin 29.7, Mean Corpuscular Hemoglobin Concent 32.8, Red Cell Distribution Width 16.0H, Platelet Count 604H, Neutrophils (%) (Auto) 69.7H, Lymphocytes (%) (Auto) 18.1L, Monocytes (%) (Auto) 10.0H, Eosinophils (%) (Auto) 0.9, Basophils (%) (Auto) 0.5, Neutrophils # (Auto) 4.6, Lymphocytes # (Auto) 1.2L, Monocytes # (Auto) 0.7, Eosinophils # (Auto) 0.1, Basophils # (Auto) 0.0, Nucleated Red Blood Cells % (auto) 0.0, Anion Gap 6L, Glomerular Filtration Rate > 60.0, Blood Urea Nitrogen 11, Creatinine 0.71, Sodium Level 134L, Potassium Level 4.1, Chloride Level 101, Carbon Dioxide Level 27, Calcium Level 8.1L, Aspartate Amino Transf (AST/SGOT) 83H, Alanine Aminotransferase (ALT/SGPT) 96H, Alkaline Phosphatase 124H, Total Bilirubin 1.5H, Total Protein 6.1L, Albumin 1.9L, Albumin/Globulin Ratio 0.45L CBC/BMP Laboratory Tests 03/05/19 06:26 Red Blood Count 3.00 L, Mean Corpuscular Volume 90.3, Mean Corpuscular Hemoglobin 29.7, Mean Corpuscular Hemoglobin Concent 32.8, Red Cell Distribution Width 16.0 H, Neutrophils (%) (Auto) 69.7 H, Lymphocytes (%) (Auto) 18.1 L, Monocytes (%) (Auto) 10.0 H, Eosinophils (%) (Auto) 0.9, Basophils (%) (Auto) 0.5, Neutrophils # (Auto) 4.6, Lymphocytes # (Auto) 1.2 L, Monocytes # (Auto) 0.7, Eosinophils # (Auto) 0.1, Basophils # (Auto) 0.0, Calcium Level 8.1 L, Aspartate Amino Transf (AST/SGOT) 83 H, Alanine Aminotransferase (ALT/SGPT) 96 H, Alkaline Phosphatase 124 H, Total Bilirubin 1.5 H, Total Protein 6.1 L, Albumin 1.9 L Janel Mayfield March 05, 2019 15:45
[2019-03-05] MEDS: RIVAROXABAN 20 MG TAB (XARELTO) PO SCH (17:08)
[2019-03-05 20:00] VITALS: BP 137/71
[2019-03-05] MEDS: SENNA 8.6 MG TAB (SENOKOT) PO SCH (20:39)
[2019-03-06] MEDS: oxyCODONE 5MG TAB PO PRN ×2 (07:45→20:48)
[2019-03-06] MEDS: DOCUSATE SODIUM 100 MG CAP PO SCH ×2 (08:46→20:48)
[2019-03-06] MEDS: FOLIC ACID 1 MG TAB PO SCH (08:46)
[2019-03-06] MEDS: MULTIVITAMINS/MINERALS THERAP 1 TAB PO SCH (08:46)
[2019-03-06] MEDS: ATORVASTATIN 20 MG TAB PO SCH (08:46)
[2019-03-06] MEDS: OMEPRAZOLE 20 MG CAP PO SCH (08:46)
[2019-03-06] MEDS: ASPIRIN 81 MG CHEW TABLET PO SCH (08:46)
[2019-03-06] MEDS: THIAMINE 100 MG TAB PO SCH (08:46)
[2019-03-06] MEDS: amLODIPine 10 MG TAB PO SCH (08:46)
[2019-03-06] MEDS: LORATADINE 10 MG TAB PO SCH (08:46)
[2019-03-06] MEDS: RIVAROXABAN 20 MG TAB (XARELTO) PO SCH (08:47)
[2019-03-06] MEDS: OXAZEPAM 10 MG CAP PO SCH ×3 (08:47→20:48)
--- NOTE | 2019-03-06 10:55 | IPNPDOC ---
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 REVIEW OF SYSTEMS: The following is a completed review of systems and has been reviewed. Review of systems otherwise unremarkable. PAIN: Patient self reports right calf pain EYES: Negative for recent vision changes EARS, NOSE, & THROAT: Denies rhinorrhea, dysphagia or hearing loss CARDIOVASCULAR: denies chest pain or palpitations PULMONARY: Negative. Denies shortness of breath. GASTROINTESTINAL: Negative for diarrhea or constipation GENITOURINARY: denies dysuria MUSCULOSKELETAL: right foot drop and s/p right calf fasciotomy NEUROLOGICAL: no seizure activity or tremors HEMATOLOGICAL:+ anemia SKIN: right LE fasciotomy with wound vac PSYCHIATRIC: Unremarkable All other review of systems found to be negative. PHYSICAL EXAMINATION: VITAL SIGNS: Please see below. GENERAL: Pleasant and cooperative. No acute distress. HEENT: PERRL. Extraocular movements intact. scleral icterus CARDIOVASCULAR: Regular rate and rhythm. No murmurs, rubs, or gallops LUNGS: Clear to auscultation bilaterally. No wheezes. No rhonchi ABDOMEN: Soft, nontender, nondistended. Positive bowel sounds. Normal active bowel sounds NEUROLOGICAL: Alert and oriented times three. Cranial nerves II through XII grossly intact. Sensation grossly intact in all 4 limbs, though slightly decreased in right foot EXTREMITIES: 5\5 strength bilateral upper extremities. 5\5 strength right hip flexion and knee extension 3/5 ankle eversion and inversion, 1/5 ankle DF. 5/5 left LE right foot edematous, pedal pulses strong SKIN: right lateral and anterior tibial fasciotomies with wound vac- left lower abdomen ecchymotic ASSESSMENT:44-year-old M with past medical history of ETOH abuse who presents status post right popliteal artery occlusion s/p revascularization complicated by compartment syndrome s/p fasciotomy with right foot drop. PLAN: 1. Rehab: PT, OT, assess for DME needs, TTWB to RLE 2. Neuro: monitor for delirium tremens, currently on Serax, denies visual hallucinations, no tremor, vitals stable -c/u thiamine and folate 3. CArdio: pmh HLD c/u statin, pmh HTN c/u Norvasc s/p right popliteal artery occlusion and revascularization 02/24 complicated by compartment syndrome s/p fasciotomy 02/25/[address] Guzmán-will consult and will need outpatient f/u- c/u XArelto and ASA 4. 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 Pain: c/u oxycodone and tylenol 6. SKin: wound vac changes M-W-, plan for skin graft in the next 2-3 weeks per vascular recs- acewrap and elevate right foot when in bed -last changed 03/05/19 7. DVT ppx: on full dose Xarelto for recent popliteal artery occlusion 8. Heme: anemia c/u iron supplements, consider transfusion if <8 9. GI ppx: Omeprazole 10. Dispo: TBD Allergies Coded Allergies: No Known Allergies (Unverified , 11/12/17) Vital Signs Vital Signs Date Time Temp Pulse Resp B/P (MAP) Pulse Ox O2 Delivery O2 Flow Rate FiO2 03/06/19 08:46 86 138/76 03/06/19 08:44 18 03/06/19 06:00 98.4 96 Current Medications Current Medications Current Medications Acetaminophen (Tylenol Tab) 650 mg Q4HP PRN PO MILD PAIN (PS 1-4); Start 03/04/19 at 17:15 Al Hydrox/Mg Hydrox/Simethicone (Mylanta) 30 ml Q4HP PRN PO DYSPEPSIA; Start 03/04/19 at 17:15 Amlodipine Besylate (Norvasc) 10 mg DAILY PO Last administered on 03/06/19at 08:46; Start 03/05/19 at 09:00 Aspirin (Aspirin Chewable) 81 mg DAILY PO Last administered on 03/06/19at 08:46; Start 03/05/19 at 09:00 Atorvastatin Calcium (Lipitor) 20 mg DAILY PO Last administered on 03/06/19at 08:46; Start 03/05/19 at 09:00 Bisacodyl (Dulcolax Tab) 5 mg DAILYPRN PRN PO CONSTIPATION; Start 03/04/19 at 17:15 Docusate Sodium (Colace) 100 mg BID PO Last administered on 03/06/19at 08:46; Start 03/04/19 at 21:00 Folic Acid (Folic Acid) 1 mg DAILY PO Last administered on 03/06/19 08:46; Start 03/05/19 at 09:00 Loratadine (Claritin) 10 mg DAILY PO Last administered on 03/06/19 08:46; Start 03/05/19 at 09:00 Multivitamins (Theragram-M) 1 tab DAILY PO Last administered on 03/06/19 08:46; Start 03/05/19 at 09:00 Omeprazole (PriLOSEC) 40 mg DAILY PO Last administered on 03/06/19 08:46; Start 03/05/19 at 09:00 Ondansetron HCl (Zofran) 4 mg Q6HP PRN PO NAUSEA; Start 03/04/19 at 17:15 Oxazepam (Serax) 10 mg TID PO Last administered on 03/06/19 08:47; Start 03/04/19 at 21:00 Oxycodone HCl (Roxicodone, Oxyir) 5 mg Q4HP PRN PO PAIN; Start 03/04/19 at 17:15 Oxycodone HCl (Roxicodone, Oxyir) 10 mg Q4HP PRN PO SEVERE PAIN (PS 8-10) Last administered on 03/06/19 07:45; Start 03/04/19 at 17:45 Rivaroxaban (Xarelto) 20 mg DAILY@0800 PO Last administered on 03/06/19 08:47; Start 03/05/19 at 08:00 Senna (Senokot) 1 tab QHS PO Last administered on 03/05/19 20:39; Start 03/04/19 at 21:00 Thiamine HCl (Thiamine HCl) 100 mg DAILY PO Last administered on 03/06/19 08:46; Start 03/05/19 at 09:00 A-FIB/CHADSVASC A-FIB History Current/History of A-Fib/PAF?: No PAT HAYWOOD MD March 06, 2019 10:55
[2019-03-06 14:00] VITALS: BP 128/75
[2019-03-06 20:00] VITALS: BP 118/66
[2019-03-06] MEDS: SENNA 8.6 MG TAB (SENOKOT) PO SCH (20:48)
[2019-03-07] MEDS: oxyCODONE 5MG TAB PO PRN ×3 (05:33→20:45)
[2019-03-07 06:00] VITALS: BP 122/76
[2019-03-07 07:51] LABS: BASO # 0.1 10^3/uL (0.0-0.2); BASO % 0.6 % (0.0-1.0); EOS # 0.1 10^3/uL (0.0-0.50); EOS % 0.8 % (0.0-3.0); HEMATOCRIT 30.5 % (42.0-52.0); HEMOGLOBIN 9.8 g/dl (13.5-17.5); LYMPH # 1.3 10^3/uL (1.5-4.5); LYMPH % 15.8 % (24.0-44.0); MEAN CORPUSCULAR HEMOGLOBIN 29.4 pg (27.0-33.0); MEAN CORPUSCULAR HGB CONC 32.1 g/dl (32.0-36.5); MEAN CORPUSCULAR VOLUME 91.6 fl (80.0-96.0); MONO # 0.6 10^3/uL (0.0-0.8); MONO % 6.5 % (0.0-5.0); NEUTROPHILS # 6.4 10^3/uL (1.8-7.7); NEUTROPHILS % 75.6 % (36.0-66.0); PLATELET COUNT, AUTOMATED 890 10^3/uL (150-450); RED BLOOD COUNT 3.33 10^6/uL (4.30-6.10); WHITE BLOOD COUNT 8.4 10^3/uL (4.0-10.0)
[2019-03-07 08:08] LABS: BLOOD UREA NITROGEN 9 MG/DL (7-18); CALCIUM LEVEL 8.4 MG/DL (8.5-10.1); CARBON DIOXIDE LEVEL 26 MEQ/L (21-32); CHLORIDE LEVEL 103 MEQ/L (98-107); GLOMERULAR FILTRATION RATE > 60.0 (>60); GLUCOSE, FASTING 118 MG/DL (70-100); SODIUM LEVEL 135 MEQ/L (136-145)
[2019-03-07] MEDS: ATORVASTATIN 20 MG TAB PO SCH (08:52)
[2019-03-07] MEDS: RIVAROXABAN 20 MG TAB (XARELTO) PO SCH (08:52)
[2019-03-07] MEDS: amLODIPine 10 MG TAB PO SCH (08:52)
[2019-03-07] MEDS: FOLIC ACID 1 MG TAB PO SCH (08:52)
[2019-03-07] MEDS: THIAMINE 100 MG TAB PO SCH (08:52)
[2019-03-07] MEDS: LORATADINE 10 MG TAB PO SCH (08:52)
[2019-03-07] MEDS: OXAZEPAM 10 MG CAP PO SCH ×3 (08:52→20:44)
[2019-03-07] MEDS: ASPIRIN 81 MG CHEW TABLET PO SCH (08:53)
[2019-03-07] MEDS: OMEPRAZOLE 20 MG CAP PO SCH (08:53)
[2019-03-07] MEDS: DOCUSATE SODIUM 100 MG CAP PO SCH ×2 (08:53→20:45)
[2019-03-07] MEDS: MULTIVITAMINS/MINERALS THERAP 1 TAB PO SCH (08:53)
[2019-03-07 10:55] LABS: C REACTIVE PROTEIN QUANTITATIV 8.67 MG/DL (0.00-0.30)
[2019-03-07 14:00] VITALS: BP 115/72
[2019-03-07 20:00] VITALS: BP 111/75
[2019-03-07] MEDS: SENNA 8.6 MG TAB (SENOKOT) PO SCH (20:45)
--- NOTE | 2019-03-07 23:23 | ER ---
DATE OF CONSULTATION: 03/07/2019 CONSULTATION REPORT FOR: Dr. Hailey Bryson REASON FOR CONSULTATION: Evaluation of right lower extremity erythema, status post fasciotomy. HISTORY OF PRESENT ILLNESS: Karthik is a pleasant 44-year-old gentleman with a history of tobacco and alcohol abuse who was admitted on 02/24/2019 with popliteal artery occlusion. The patient had a right lower extremity angiogram and TPA thrombolysis to his right popliteal artery and then underwent angioplasty to popliteal, posterior tibial artery, peroneal artery, anterior and posterior tibial artery. He also developed acute compartment syndrome and required a fasciotomy. The patient received perioperative prophylaxis with cefazolin 2 grams times two doses on 02/24/2019 and 02/25/2019. He was then transferred to acute rehabilitation on 03/04/2019 and has done well. Postoperatively, he had a couple days of fever from 02/27/2019 through 03/01/2019 up to 100.4 but did not require antibiotics. Today, he was in physical therapy when there was concern that his foot looked very erythematous and with pitting edema, but the patient states that he feels better this afternoon. His leg is less erythematous since he has elevated it and he does not have any worsening pain. He has had no fever or chills. No nausea, vomiting, or diarrhea. No abdominal pain. PAST MEDICAL HISTORY: Alcohol abuse, tobacco abuse, history of hypertension, and hyperlipidemia. PAST SURGICAL HISTORY: Angioplasty, thrombolysis of popliteal artery, bilateral fasciotomy of the right leg medially and laterally by SOCIAL HISTORY: He lives alone in an apartment in [place]. Alcohol abuse, smoking. No illicit drug use. ALLERGIES: No known drug allergies. MEDICATIONS: - aspirin 81 mg daily - folic acid 1 mg daily - omeprazole 40 mg daily - Lipitor 20 mg daily - amlodipine 10 mg daily - loratadine 10 mg daily - thiamine 100 mg daily - multivitamin one tablet daily - Xarelto 20 mg by mouth daily - oxazepam 0 mg by mouth three times a day - Colace 100 mg by mouth twice a day - Senokot one tablet by mouth at bedtime - oxycodone 10 mg every four hours as needed - Zofran as needed LABORATORY DATA: White count 8.4, hemoglobin 9.8, hematocrit 30.5, platelets 890, 75% neutrophils, 15% lymphocytes, 6% monocytes. Sodium 135, potassium f4, chloride 103, bicarbonate 26, BUN 9, creatinine 0.82, glucose 118, calcium 8.4, CPK 3521 on 03/02/2019, CRP 8.67. PHYSICAL EXAMINATION: HEART: Normal S1, S2. No murmurs, rubs, or gallops. LUNGS: Clear. No wheezes, rales, or rhonchi. ABDOMEN: Soft, nontender. No hepatosplenomegaly. He has ecchymosis of his left lower quadrant extending all the way to his mid back from angiogram that was done. Right lower extremity has +2 pitting edema. Left lower extremity +1 pitting edema. Dorsalis pedis pulses +2. Right extremity has a wound vacuum-assisted closure (VAC) with a bridge from the incisions from the fasciotomy, knee to ankle medially and laterally with exposed muscles, covered with granulation tissue, no purulence, no surrounding cellulitis. There is exposed tendon above the lateral malleolus measuring about 3 cm. The foot is slightly erythematous but nontender and no warmth, that has decreased since the patient has elevated his leg. IMPRESSION: A 44-year-old status post angioplasty and thrombolysis who also underwent fasciotomy for compartment syndrome, had increased erythema during physical therapy that has resolved with elevation. His elevated C-reactive protein (CRP) is most likely related to dependent to extensive surgery. At this point, I would not recommend using any IV antibiotics. I do not see any evidence of infection. Elevate the legs. Consider even using a small dose of oral Lasix to help with dependent edema. The patient has pitting edema even on the left leg. [facility]
[2019-03-08] MEDS: oxyCODONE 5MG TAB PO PRN ×3 (05:53→20:53)
[2019-03-08 06:00] VITALS: BP 118/74
[2019-03-08] MEDS: OMEPRAZOLE 20 MG CAP PO SCH (09:11)
[2019-03-08] MEDS: DOCUSATE SODIUM 100 MG CAP PO SCH ×2 (09:11→20:47)
[2019-03-08] MEDS: MULTIVITAMINS/MINERALS THERAP 1 TAB PO SCH (09:11)
[2019-03-08] MEDS: ATORVASTATIN 20 MG TAB PO SCH (09:13)
[2019-03-08] MEDS: amLODIPine 10 MG TAB PO SCH (09:13)
[2019-03-08] MEDS: ASPIRIN 81 MG CHEW TABLET PO SCH (09:13)
[2019-03-08] MEDS: OXAZEPAM 10 MG CAP PO SCH ×3 (09:14→20:47)
[2019-03-08] MEDS: LORATADINE 10 MG TAB PO SCH (09:14)
[2019-03-08] MEDS: FOLIC ACID 1 MG TAB PO SCH (09:14)
[2019-03-08] MEDS: RIVAROXABAN 20 MG TAB (XARELTO) PO SCH (09:14)
[2019-03-08] MEDS: THIAMINE 100 MG TAB PO SCH (09:14)
[2019-03-08 14:00] VITALS: BP 106/57
[2019-03-08 20:00] VITALS: BP 109/60
[2019-03-08] MEDS: SENNA 8.6 MG TAB (SENOKOT) PO SCH (20:47)
[2019-03-09 06:00] VITALS: BP 124/76
[2019-03-09] MEDS: oxyCODONE 5MG TAB PO PRN ×3 (06:11→20:11)
[2019-03-09] MEDS: ATORVASTATIN 20 MG TAB PO SCH (09:19)
[2019-03-09] MEDS: amLODIPine 10 MG TAB PO SCH (09:19)
[2019-03-09] MEDS: DOCUSATE SODIUM 100 MG CAP PO SCH ×2 (09:19→20:10)
[2019-03-09] MEDS: OMEPRAZOLE 20 MG CAP PO SCH (09:19)
[2019-03-09] MEDS: RIVAROXABAN 20 MG TAB (XARELTO) PO SCH (09:19)
[2019-03-09] MEDS: THIAMINE 100 MG TAB PO SCH (09:19)
[2019-03-09] MEDS: MULTIVITAMINS/MINERALS THERAP 1 TAB PO SCH (09:19)
[2019-03-09] MEDS: ASPIRIN 81 MG CHEW TABLET PO SCH (09:19)
[2019-03-09] MEDS: LORATADINE 10 MG TAB PO SCH (09:20)
[2019-03-09] MEDS: FOLIC ACID 1 MG TAB PO SCH (09:20)
[2019-03-09] MEDS: OXAZEPAM 10 MG CAP PO SCH ×3 (09:20→20:10)
[2019-03-09 09:27] VITALS: BP 126/76
[2019-03-09 14:00] VITALS: BP 115/63
[2019-03-09 20:00] VITALS: BP 113/63
[2019-03-09] MEDS: SENNA 8.6 MG TAB (SENOKOT) PO SCH (20:10)
[2019-03-10] MEDS: oxyCODONE 5MG TAB PO PRN ×3 (05:19→19:34)
[2019-03-10 06:00] VITALS: BP 110/76
[2019-03-10] MEDS: MULTIVITAMINS/MINERALS THERAP 1 TAB PO SCH (08:17)
[2019-03-10] MEDS: ASPIRIN 81 MG CHEW TABLET PO SCH (08:17)
[2019-03-10] MEDS: OMEPRAZOLE 20 MG CAP PO SCH (08:17)
[2019-03-10] MEDS: ATORVASTATIN 20 MG TAB PO SCH (08:17)
[2019-03-10] MEDS: THIAMINE 100 MG TAB PO SCH (08:17)
[2019-03-10] MEDS: FOLIC ACID 1 MG TAB PO SCH (08:17)
[2019-03-10] MEDS: LORATADINE 10 MG TAB PO SCH (08:17)
[2019-03-10] MEDS: amLODIPine 10 MG TAB PO SCH (08:17)
[2019-03-10] MEDS: OXAZEPAM 10 MG CAP PO SCH ×3 (08:17→20:10)
[2019-03-10] MEDS: RIVAROXABAN 20 MG TAB (XARELTO) PO SCH (08:17)
[2019-03-10] MEDS: DOCUSATE SODIUM 100 MG CAP PO SCH ×2 (08:18→20:10)
[2019-03-10 14:00] VITALS: BP 114/57
[2019-03-10 20:00] VITALS: BP 120/67
[2019-03-10] MEDS: SENNA 8.6 MG TAB (SENOKOT) PO SCH (20:10)
[2019-03-11 06:00] VITALS: BP 138/80
[2019-03-11 06:32] LABS: BASO # 0.1 10^3/uL (0.0-0.2); EOS # 0.1 10^3/uL (0.0-0.50); HEMATOCRIT 30.6 % (42.0-52.0); HEMOGLOBIN 9.9 g/dl (13.5-17.5); LYMPH # 1.5 10^3/uL (1.5-4.5); LYMPH % 28.3 % (24.0-44.0); MEAN CORPUSCULAR HGB CONC 32.4 g/dl (32.0-36.5); MEAN CORPUSCULAR VOLUME 89.7 fl (80.0-96.0); MONO # 0.6 10^3/uL (0.0-0.8); MONO % 11.6 % (0.0-5.0); NEUTROPHILS % 57.5 % (36.0-66.0); PLATELET COUNT, AUTOMATED 960 10^3/uL (150-450); RED BLOOD COUNT 3.41 10^6/uL (4.30-6.10); WHITE BLOOD COUNT 5.3 10^3/uL (4.0-10.0)
[2019-03-11 06:56] LABS: BLOOD UREA NITROGEN 10 MG/DL (7-18); C REACTIVE PROTEIN QUANTITATIV 5.72 MG/DL (0.00-0.30); CALCIUM LEVEL 8.8 MG/DL (8.5-10.1); CARBON DIOXIDE LEVEL 27 MEQ/L (21-32); CHLORIDE LEVEL 103 MEQ/L (98-107); CREATININE FOR GFR 0.84 MG/DL (0.70-1.30); GLOMERULAR FILTRATION RATE > 60.0 (>60); GLUCOSE, FASTING 109 MG/DL (70-100); POTASSIUM SERUM 4.3 MEQ/L (3.5-5.1); SODIUM LEVEL 136 MEQ/L (136-145)
[2019-03-11] MEDS: oxyCODONE 5MG TAB PO PRN ×3 (07:00→20:32)
[2019-03-11] MEDS: FOLIC ACID 1 MG TAB PO SCH (08:25)
[2019-03-11] MEDS: ASPIRIN 81 MG CHEW TABLET PO SCH (08:25)
[2019-03-11] MEDS: MULTIVITAMINS/MINERALS THERAP 1 TAB PO SCH (08:25)
[2019-03-11] MEDS: THIAMINE 100 MG TAB PO SCH (08:25)
[2019-03-11] MEDS: LORATADINE 10 MG TAB PO SCH (08:26)
[2019-03-11] MEDS: amLODIPine 10 MG TAB PO SCH (08:26)
[2019-03-11] MEDS: ATORVASTATIN 20 MG TAB PO SCH (08:26)
[2019-03-11] MEDS: DOCUSATE SODIUM 100 MG CAP PO SCH ×2 (08:26→20:32)
[2019-03-11] MEDS: OMEPRAZOLE 20 MG CAP PO SCH (08:26)
[2019-03-11] MEDS: RIVAROXABAN 20 MG TAB (XARELTO) PO SCH (08:26)
[2019-03-11] MEDS: OXAZEPAM 10 MG CAP PO SCH ×3 (08:26→20:31)
[2019-03-11 14:00] VITALS: BP 119/79
--- NOTE | 2019-03-11 18:39 | IPNPDOC ---
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 REVIEW OF SYSTEMS: The following is a completed review of systems and has been reviewed. Review of systems otherwise unremarkable. PAIN: Patient self reports right calf pain EYES: Negative for recent vision changes EARS, NOSE, & THROAT: Denies rhinorrhea, dysphagia or hearing loss CARDIOVASCULAR: denies chest pain or palpitations PULMONARY: Negative. Denies shortness of breath. GASTROINTESTINAL: Negative for diarrhea or constipation GENITOURINARY: denies dysuria MUSCULOSKELETAL: right foot drop and s/p right calf fasciotomy NEUROLOGICAL: no seizure activity or tremors HEMATOLOGICAL:+ anemia SKIN: right LE fasciotomy with wound vac PSYCHIATRIC: Unremarkable All other review of systems found to be negative. PHYSICAL EXAMINATION: VITAL SIGNS: Please see below. GENERAL: Pleasant and cooperative. No acute distress. HEENT: PERRL. Extraocular movements intact. scleral icterus CARDIOVASCULAR: Regular rate and rhythm. No murmurs, rubs, or gallops LUNGS: Clear to auscultation bilaterally. No wheezes. No rhonchi ABDOMEN: Soft, nontender, nondistended. Positive bowel sounds. Normal active bowel sounds NEUROLOGICAL: Alert and oriented times three. Cranial nerves II through XII grossly intact. Sensation grossly intact in all 4 limbs, though slightly decreased in right foot EXTREMITIES: 5\5 strength bilateral upper extremities. 5\5 strength right hip flexion and knee extension 3/5 ankle eversion and inversion, 1/5 ankle DF. 5/5 left LE right foot erythematous TTP and edematous SKIN: right lateral and anterior tibial fasciotomies with wound vac- healing well left lower abdomen ecchymotic ASSESSMENT:44-year-old M with past medical history of ETOH abuse who presents status post right popliteal artery occlusion s/p revascularization complicated by compartment syndrome s/p fasciotomy with right foot drop. PLAN: 1. Rehab: PT, OT, assess for DME needs, TTWB to RLE, ambulating well with RW 2. Neuro: monitor for delirium tremens, currently on Serax, denies visual hallucinations, no tremor, vitals stable -c/u thiamine and folate 3. CArdio: pmh HLD c/u statin, pmh HTN c/u Norvasc s/p right popliteal artery occlusion and revascularization 02/24 complicated by compartment syndrome s/p fasciotomy 02/25/[address] Guzmán-will consult and will need outpatient f/u- c/u XArelto and ASA 4. 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 Pain: c/u oxycodone and tylenol 6. SKin: wound vac changes --, plan for skin graft in the next 2-3 weeks per vascular recs- acewrap and elevate right foot when in bed, changed today without complication -ordered ID consult for elevated CRP and dependent warmth and erythema of the foot which resolved with elevation- no intervention, recs appreciated 7. DVT ppx: on full dose Xarelto for recent popliteal artery occlusion 8. Heme: anemia c/u iron supplements, consider transfusion if <8-stable 9. GI ppx: Omeprazole 10. Dispo: TBD Allergies Coded Allergies: No Known Allergies (Unverified , 11/12/17) Vital Signs Vital Signs Date Time Temp Pulse Resp B/P (MAP) Pulse Ox O2 Delivery O2 Flow Rate FiO2 03/11/19 15:10 18 03/11/19 14:00 99.0 96 119/79 (92) 99 Laboratory Data CBC/BMP Laboratory Tests 03/11/19 06:19 Red Blood Count 3.41 L, Mean Corpuscular Volume 89.7, Mean Corpuscular Hemoglobi n 29.0, Mean Corpuscular Hemoglobin Concent 32.4, Red Cell Distribution Width 15.9 H, Neutrophils (%) (Auto) 57.5, Lymphocytes (%) (Auto) 28.3, Monocytes (%) (Auto) 11.6 H, Eosinophils (%) (Auto) 1.0, Basophils (%) (Auto) 1.0, Neutrophils # (Auto) 3.0, Lymphocytes # (Auto) 1.5, Monocytes # (Auto) 0.6, Eosinophils # (Auto) 0.1, Basophils # (Auto) 0.1, Calcium Level 8.8 Labs 24H Laboratory Tests 2 03/11/19 06:19: Immature Granulocyte % (Auto) 0.6, White Blood Count 5.3, Red Blood Count 3.41L, Hemoglobin 9.9L, Hematocrit 30.6L, Mean Corpuscular Volume 89.7, Mean Corpuscular Hemoglobin 29.0, Mean Corpuscular Hemoglobin Concent 32.4, Red Cell Distribution Width 15.9H, Platelet Count 960H, Neutrophils (%) (Auto) 57.5, Lymphocytes (%) (Auto) 28.3, Monocytes (%) (Auto) 11.6H, Eosinophils (%) (Auto) 1.0, Basophils (%) (Auto) 1.0, Neutrophils # (Auto) 3.0, Lymphocytes # (Auto) 1.5, Monocytes # (Auto) 0.6, Eosinophils # (Auto) 0.1, Basophils # (Auto) 0.1, Nucleated Red Blood Cells % (auto) 0.0, Anion Gap 6L, Glomerular Filtration Rate > 60.0, Blood Urea Nitrogen 10, Creatinine 0.84, Sodium Level 136, Potassium Level 4.3, Chloride Level 103, Carbon Dioxide Level 27, Calcium Level 8.8, C- Reactive Protein, Quantitative 5.72H Current Medications Current Medications Current Medications Acetaminophen (Tylenol Tab) 650 mg Q4HP PRN PO MILD PAIN (PS 1-4); Start 03/04/19 at 17:15 Al Hydrox/Mg Hydrox/Simethicone (Mylanta) 30 ml Q4HP PRN PO DYSPEPSIA; Start 03/04/19 at 17:15 Amlodipine Besylate (Norvasc) 10 mg DAILY PO Last administered on 03/11/19at 08:26; Start 03/05/19 at 09:00 Aspirin (Aspirin Chewable) 81 mg DAILY PO Last administered on 03/11/19at 08:25; Start 03/05/19 at 09:00 Atorvastatin Calcium (Lipitor) 20 mg DAILY PO Last administered on 03/11/19at 08:26; Start 03/05/19 at 09:00 Bisacodyl (Dulcolax Tab) 5 mg DAILYPRN PRN PO CONSTIPATION; Start 03/04/19 at 17:15 Docusate Sodium (Colace) 100 mg BID PO Last administered on 03/10/19at 20:10; Start 03/04/19 at 21:00 Folic Acid (Folic Acid) 1 mg DAILY PO Last administered on 03/11/19at 08:25; Start 03/05/19 at 09:00 Loratadine (Claritin) 10 mg DAILY PO Last administered on 03/11/19 08:26; Start 03/05/19 at 09:00 Miscellaneous (Unresolved Clarification Entry) SEE LABEL COMMENTS DAILY XX ; Start 03/11/19 at 09:00; Stop 03/11/19 at 15:54; Status DC Multivitamins (Theragram-M) 1 tab DAILY PO Last administered on 03/11/19 08 :25; Start 03/05/19 at 09:00 Omeprazole (PriLOSEC) 40 mg DAILY PO Last administered on 03/11/19 08:26; Start 03/05/19 at 09:00 Ondansetron HCl (Zofran) 4 mg Q6HP PRN PO NAUSEA; Start 03/04/19 at 17:15 Oxazepam (Serax) 10 mg TID PO Last administered on 03/11/19 17:25; Start 03/04/19 at 21:00 Oxycodone HCl (Roxicodone, Oxyir) 5 mg Q4HP PRN PO PAIN Last administered on 03/06/19 20:48; Start 03/04/19 at 17:15 Oxycodone HCl (Roxicodone, Oxyir) 10 mg Q4HP PRN PO SEVERE PAIN (PS 8-10) Last administered on 03/11/19 14:35; Start 03/04/19 at 17:45; Stop 03/11/19 at 15:52; Status DC Rivaroxaban (Xarelto) 20 mg DAILY@0800 PO Last administered on 03/11/19 08:26; Start 03/05/19 at 08:00 Senna (Senokot) 1 tab QHS PO Last administered on 03/10/19 20:10; Start 03/04/19 at 21:00 Thiamine HCl (Thiamine HCl) 100 mg DAILY PO Last administered on 03/11/19 08:25; Start 03/05/19 at 09:00 PAT HAYWOOD MD March 11, 2019 18:39
--- NOTE | 2019-03-11 18:41 | IPNPDOC ---
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 REVIEW OF SYSTEMS: The following is a completed review of systems and has been reviewed. Review of systems otherwise unremarkable. PAIN: Patient self reports right calf pain EYES: Negative for recent vision changes EARS, NOSE, & THROAT: Denies rhinorrhea, dysphagia or hearing loss CARDIOVASCULAR: denies chest pain or palpitations PULMONARY: Negative. Denies shortness of breath. GASTROINTESTINAL: Negative for diarrhea or constipation GENITOURINARY: denies dysuria MUSCULOSKELETAL: right foot drop and s/p right calf fasciotomy NEUROLOGICAL: no seizure activity or tremors HEMATOLOGICAL:+ anemia SKIN: right LE fasciotomy with wound vac PSYCHIATRIC: Unremarkable All other review of systems found to be negative. PHYSICAL EXAMINATION: VITAL SIGNS: Please see below. GENERAL: Pleasant and cooperative. No acute distress. HEENT: PERRL. Extraocular movements intact. scleral icterus CARDIOVASCULAR: Regular rate and rhythm. No murmurs, rubs, or gallops LUNGS: Clear to auscultation bilaterally. No wheezes. No rhonchi ABDOMEN: Soft, nontender, nondistended. Positive bowel sounds. Normal active bowel sounds NEUROLOGICAL: Alert and oriented times three. Cranial nerves II through XII grossly intact. Sensation grossly intact in all 4 limbs, though slightly decreased in right foot EXTREMITIES: 5\5 strength bilateral upper extremities. 5\5 strength right hip flexion and knee extension 3/5 ankle eversion and inversion, 1/5 ankle DF. 5/5 left LE right foot erythematous TTP and edematous SKIN: right lateral and anterior tibial fasciotomies with wound vac- healing well left lower abdomen ecchymotic ASSESSMENT:44-year-old M with past medical history of ETOH abuse who presents status post right popliteal artery occlusion s/p revascularization complicated by compartment syndrome s/p fasciotomy with right foot drop. PLAN: 1. Rehab: PT, OT, assess for DME needs, TTWB to RLE, ambulating well with RW 2. Neuro: monitor for delirium tremens, currently on Serax, denies visual halluc inations, no tremor, vitals stable -c/u thiamine and folate 3. CArdio: pmh HLD c/u statin, pmh HTN c/u Norvasc s/p right popliteal artery occlusion and revascularization 02/24 complicated by compartment syndrome s/p fasciotomy 02/25/[address] Guzmán-will consult and will need outpatient f/u- c/u XArelto and ASA 4. 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 Pain: c/u oxycodone and tylenol 6. SKin: wound vac changes --, plan for skin graft in the next 2-3 weeks per vascular recs- acewrap and elevate right foot when in bed- ten dd low dose lasix for edema -ordered ID consult for elevated CRP and dependent warmth and erythema of the foot which resolved with elevation- no intervention, recs appreciated 7. DVT ppx: on full dose Xarelto for recent popliteal artery occlusion 8. Heme: anemia c/u iron supplements, consider transfusion if <8-stable 9. GI ppx: Omeprazole 10. Dispo: 03/14/19 to home Allergies Coded Allergies: No Known Allergies (Unverified , 11/12/17) Vital Signs Vital Signs Date Time Temp Pulse Resp B/P (MAP) Pulse Ox O2 Delivery O2 Flow Rate FiO2 03/11/19 15:10 18 03/11/19 14:00 99.0 96 119/79 (92) 99 Laboratory Data CBC/BMP Laboratory Tests 03/11/19 06:19 Red Blood Count 3.41 L, Mean Corpuscular Volume 89.7, Mean Corpuscular Hemoglobin 29.0, Mean Corpuscular Hemoglobin Concent 32.4, Red Cell Distribution Width 15.9 H, Neutrophils (%) (Auto) 57.5, Lymphocytes (%) (Auto) 28.3, Monocytes (%) (Auto) 11.6 H, Eosinophils (%) (Auto) 1.0, Basophils (%) (Auto) 1.0, Neutrophils # (Auto) 3.0, Lymphocytes # (Auto) 1.5, Monocytes # (Auto) 0.6, Eosinophils # (Auto) 0.1, Basophils # (Auto) 0.1, Calcium Level 8.8 Labs 24H Laboratory Tests 2 03/11/19 06:19: Immature Granulocyte % (Auto) 0.6, White Blood Count 5.3, Red Blood Count 3.41L, Hemoglobin 9.9L, Hematocrit 30.6L, Mean Corpuscular Volume 89.7, Mean Corpuscular Hemoglobin 29.0, Mean Corpuscular Hemoglobin Concent 32.4, Red Cell Distribution Width 15.9H, Platelet Count 960H, Neutrophils (%) (Auto) 57.5, Lymphocytes (%) (Auto) 28.3, Monocytes (%) (Auto) 11.6H, Eosinophils (%) (Auto) 1.0, Basophils (%) (Auto) 1.0, Neutrophils # (Auto) 3.0, Lymphocytes # (Auto) 1.5, Monocytes # (Auto) 0.6, Eosinophils # (Auto) 0.1, Basophils # (Auto) 0.1, Nucleated Red Blood Cells % (auto) 0.0, Anion Gap 6L, Glomerular Filtration Rate > 60.0, Blood Urea Nitrogen 10, Creatinine 0.84, Sodium Level 136, Potassium Level 4.3, Chloride Level 103, Carbon Dioxide Level 27, Calcium Level 8.8, C- Reactive Protein, Quantitative 5.72H Current Medications Current Medications Current Medications Acetaminophen (Tylenol Tab) 650 mg Q4HP PRN PO MILD PAIN (PS 1-4); Start 03/04/19 at 17:15 Al Hydrox/Mg Hydrox/Simethicone (Mylanta) 30 ml Q4HP PRN PO DYSPEPSIA; Start 03/04/19 at 17:15 Amlodipine Besylate (Norvasc) 10 mg DAILY PO Last administered on 03/11/19at 0 8:26; Start 03/05/19 at 09:00 Aspirin (Aspirin Chewable) 81 mg DAILY PO Last administered on 03/11/19at 08:25; Start 03/05/19 at 09:00 Atorvastatin Calcium (Lipitor) 20 mg DAILY PO Last administered on 03/11/19at 08:26; Start 03/05/19 at 09:00 Bisacodyl (Dulcolax Tab) 5 mg DAILYPRN PRN PO CONSTIPATION; Start 03/04/19 at 17:15 Docusate Sodium (Colace) 100 mg BID PO Last administered on 03/10/19at 20:10; Start 03/04/19 at 21:00 Folic Acid (Folic Acid) 1 mg DAILY PO Last administered on 03/11/19 08:25; Start 03/05/19 at 09:00 Loratadine (Claritin) 10 mg DAILY PO Last administered on 03/11/19 08:26; Start 03/05/19 at 09:00 Miscellaneous (Unresolved Clarification Entry) SEE LABEL COMMENTS DAILY XX ; Start 03/11/19 at 09:00; Stop 03/11/19 at 15:54; Status DC Multivitamins (Theragram-M) 1 tab DAILY PO Last administered on 03/11/19 08:25; Start 03/05/19 at 09:00 Omeprazole (PriLOSEC) 40 mg DAILY PO Last administered on 03/11/19 08:26; Start 03/05/19 at 09:00 Ondansetron HCl (Zofran) 4 mg Q6HP PRN PO NAUSEA; Start 03/04/19 at 17:15 Oxazepam (Serax) 10 mg TID PO Last administered on 03/11/19 17:25; Start 03/04/19 at 21:00 Oxycodone HCl (Roxicodone, Oxyir) 5 mg Q4HP PRN PO PAIN Last administered on 03/06/19 20:48; Start 03/04/19 at 17:15 Oxycodone HCl (Roxicodone, Oxyir) 10 mg Q4HP PRN PO SEVERE PAIN (PS 8-10) Last administered on 03/11/19 14:35; Start 03/04/19 at 17:45; Stop 03/11/19 at 15:52; Status DC Rivaroxaban (Xarelto) 20 mg DAILY@0800 PO Last administered on 03/11/19 08:26; Start 03/05/19 at 08:00 Senna (Senokot) 1 tab QHS PO Last administered on 03/10/19 20:10; Start 03/04/19 at 21:00 Thiamine HCl (Thiamine HCl) 100 mg DAILY PO Last administered on 03/11/19 08:25; Start 03/05/19 at 09:00 PAT HAYWOOD MD March 11, 2019 18:41
[2019-03-11 20:00] VITALS: BP 109/93
[2019-03-11] MEDS: SENNA 8.6 MG TAB (SENOKOT) PO SCH (20:33)
[2019-03-12 06:00] VITALS: BP 123/78
[2019-03-12 07:15] LABS: BLOOD UREA NITROGEN 9 MG/DL (7-18); CALCIUM LEVEL 8.5 MG/DL (8.5-10.1); CARBON DIOXIDE LEVEL 25 MEQ/L (21-32); CHLORIDE LEVEL 104 MEQ/L (98-107); CREATININE FOR GFR 0.81 MG/DL (0.70-1.30); GLOMERULAR FILTRATION RATE > 60.0 (>60); GLUCOSE, FASTING 125 MG/DL (70-100); POTASSIUM SERUM 4.2 MEQ/L (3.5-5.1); SODIUM LEVEL 137 MEQ/L (136-145)
[2019-03-12 07:20] LABS: BASO % 0.5 % (0.0-1.0); EOS # 0.1 10^3/uL (0.0-0.50); EOS % 1.1 % (0.0-3.0); HEMATOCRIT 30.6 % (42.0-52.0); HEMOGLOBIN 10.1 g/dl (13.5-17.5); LYMPH # 1.4 10^3/uL (1.5-4.5); LYMPH % 22.7 % (24.0-44.0); MEAN CORPUSCULAR HEMOGLOBIN 29.6 pg (27.0-33.0); MEAN CORPUSCULAR VOLUME 89.7 fl (80.0-96.0); MONO # 0.6 10^3/uL (0.0-0.8); MONO % 9.4 % (0.0-5.0); NEUTROPHILS # 4.1 10^3/uL (1.8-7.7); NEUTROPHILS % 65.7 % (36.0-66.0); PLATELET COUNT, AUTOMATED 990 10^3/uL (150-450); RED BLOOD COUNT 3.41 10^6/uL (4.30-6.10); WHITE BLOOD COUNT 6.2 10^3/uL (4.0-10.0)
[2019-03-12] MEDS: OMEPRAZOLE 20 MG CAP PO SCH (08:27)
[2019-03-12] MEDS: MULTIVITAMINS/MINERALS THERAP 1 TAB PO SCH (08:27)
[2019-03-12] MEDS: ASPIRIN 81 MG CHEW TABLET PO SCH (08:27)
[2019-03-12] MEDS: amLODIPine 10 MG TAB PO SCH (08:27)
[2019-03-12] MEDS: OXAZEPAM 10 MG CAP PO SCH ×2 (08:27→20:07)
[2019-03-12] MEDS: RIVAROXABAN 20 MG TAB (XARELTO) PO SCH (08:27)
[2019-03-12] MEDS: THIAMINE 100 MG TAB PO SCH (08:27)
[2019-03-12] MEDS: oxyCODONE 5MG TAB PO PRN ×3 (08:27→20:08)
[2019-03-12] MEDS: FOLIC ACID 1 MG TAB PO SCH (08:27)
[2019-03-12] MEDS: ATORVASTATIN 20 MG TAB PO SCH (08:28)
[2019-03-12] MEDS: FUROSEMIDE 20 MG TAB PO SCH (08:28)
[2019-03-12] MEDS: DOCUSATE SODIUM 100 MG CAP PO SCH ×2 (08:28→20:07)
[2019-03-12] MEDS: LORATADINE 10 MG TAB PO SCH (08:28)
--- NOTE | 2019-03-12 14:13 | IPNPDOC ---
PM&R Progress Note DATE OF SERVICE: March 12, 2019 [employer] Progress Note Subjective: Patient reports he feels well, was able to walk further and believes he is getting some returning strength in his ankle. REVIEW OF SYSTEMS: The following is a completed review of systems and has been reviewed. Review of systems otherwise unremarkable. PAIN: Patient self reports right calf pain EYES: Negative for recent vision changes EARS, NOSE, & THROAT: Denies rhinorrhea, dysphagia or hearing loss CARDIOVASCULAR: denies chest pain or palpitations PULMONARY: Negative. Denies shortness of breath. GASTROINTESTINAL: Negative for diarrhea or constipation GENITOURINARY: denies dysuria MUSCULOSKELETAL: right foot drop and s/p right calf fasciotomy NEUROLOGICAL: no seizure activity or tremors HEMATOLOGICAL:+ anemia SKIN: right LE fasciotomy with wound vac PSYCHIATRIC: Unremarkable All other review of systems found to be negative. PHYSICAL EXAMINATION: VITAL SIGNS: Please see below. GENERAL: Pleasant and cooperative. No acute distress. HEENT: PERRL. Extraocular movements intact. scleral icterus CARDIOVASCULAR: Regular rate and rhythm. No murmurs, rubs, or gallops LUNGS: Clear to auscultation bilaterally. No wheezes. No rhonchi ABDOMEN: Soft, nontender, nondistended. Positive bowel sounds. Normal active bowel sounds NEUROLOGICAL: Alert and oriented times three. Cranial nerves II through XII grossly intact. Sensation grossly intact in all 4 limbs, though slightly decreased in right foot EXTREMITIES: 5\5 strength bilateral upper extremities. 5\5 strength right hip flexion and knee extension 3/5 ankle eversion and inversion, 1/5 ankle DF. 5/5 left LE right foot edematous, non-tender SKIN: right lateral and anterior tibial fasciotomies with wound vac- healing well left lower abdomen ecchymotic ASSESSMENT:44-year-old M with past medical history of ETOH abuse who presents status post right popliteal artery occlusion s/p revascularization complicated by compartment syndrome s/p fasciotomy with right foot drop. PLAN: 1. Rehab: PT, OT, assess for DME needs, TTWB to RLE, ambulating further with RW 2. Neuro: monitor for delirium tremens, currently on Serax, denies visual hallucinations, no tremor, vitals stable -c/u thiamine and folate 3. CArdio: pmh HLD c/u statin, pmh HTN c/u Norvasc s/p right popliteal artery occlusion and revascularization 02/24 complicated by compartment syndrome s/p fasciotomy 02/25/[address] Guzmán-will consult and will need outpatient f/u- c/u XArelto and ASA 4. Ortho: right foot drop likely due to compression neuropathy of the common peroneal nerve, encourage patient to stretch heel cords, anticipate bracing once fasciotomy heals 5. Pain: start to taper down on oxycodone and c/u tylenol 6. SKin: wound vac changes --, plan for skin graft in the next 2-3 weeks per vascular recs- acewrap and elevate right foot when in bed- ten dd low dose lasix for edema -ordered ID consult for elevated CRP and dependent warmth and erythema of the foot which resolved with elevation- no intervention, recs appreciated 7. DVT ppx: on full dose Xarelto for recent popliteal artery occlusion 8. Heme: anemia c/u iron supplements, consider transfusion if <8-stable 9. GI ppx: Omeprazole 10. Dispo: 03/14/19 to home Allergies Coded Allergies: No Known Allergies (Unverified , 11/12/17) Vital Signs Vital Signs Date Time Temp Pulse Resp B/P (MAP) Pulse Ox O2 Delivery O2 Flow Rate FiO2 03/12/19 13:28 16 03/12/19 08:27 87 123/78 03/12/19 06:00 97.5 99 Laboratory Data CBC/BMP Laboratory Tests 03/12/19 06:37 Red Blood Count 3.41 L, Mean Corpuscular Volume 89.7, Mean Corpuscular Hemoglobin 29.6, Mean Corpuscular Hemoglobin Concent 33.0, Red Cell Distribution Width 15.9 H, Neutrophils (%) (Auto) 65.7, Lymphocytes (%) (Auto) 22.7 L, Monocytes (%) (Auto) 9.4 H, Eosinophils (%) (Auto) 1.1, Basophils (%) (Auto) 0.5, Neutrophils # (Auto) 4.1, Lymphocytes # (Auto) 1.4 L, Monocytes # (Auto) 0.6, Eosinophils # (Auto) 0.1, Basophils # (Auto) 0.0, Calcium Level 8.5 Labs 24H Laboratory Tests 2 03/12/19 06:37: Immature Granulocyte % (Auto) 0.6, White Blood Count 6.2, Red Blood Count 3.41L, Hemoglobin 10.1L, Hematocrit 30.6L, Mean Corpuscular Volume 89.7, Mean Corpuscular Hemoglobin 29.6, Mean Corpuscular Hemoglobin Concent 33.0, Red Cell Distribution Width 15.9H, Platelet Count 990H, Neutrophils (%) (Auto) 65.7, Lymphocytes (%) (Auto) 22.7L, Monocytes (%) (Auto) 9.4H, Eosinophils (%) (Auto) 1.1, Basophils (%) (Auto) 0.5, Neutrophils # (Auto) 4.1, Lymphocytes # (Auto) 1.4L, Monocytes # (Auto) 0.6, Eosinophils # (Auto) 0.1, Basophils # (Auto) 0.0, Nucleated Red Blood Cells % (auto) 0.0, Anion Gap 8, Glomerular Filtration Rate > 60.0, Blood Urea Nitrogen 9, Creatinine 0.81, Sodium Level 137, Potassium Level 4.2, Chloride Level 104, Carbon Dioxide Level 25, Calcium Level 8.5 Current Medications Current Medications Current Medications Acetaminophen (Tylenol Tab) 650 mg Q4HP PRN PO MILD PAIN (PS 1-4); Start 03/04/19 at 17:15 Al Hydrox/Mg Hydrox/Simethicone (Mylanta) 30 ml Q4HP PRN PO DYSPEPSIA; Start 03/04/19 at 17:15 Amlodipine Besylate (Norvasc) 10 mg DAILY PO Last administered on 03/12/19at 08:27; Start 03/05/19 at 09:00 Aspirin (Aspirin Chewable) 81 mg DAILY PO Last administered on 03/12/19at 08:27; Start 03/05/19 at 09:00 Atorvastatin Calcium (Lipitor) 20 mg DAILY PO Last administered on 03/12/19at 08:28; Start 03/05/19 at 09:00 Bisacodyl (Dulcolax Tab) 5 mg DAILYPRN PRN PO CONSTIPATION; Start 03/04/19 at 17:15 Docusate Sodium (Colace) 100 mg BID PO Last administered on 03/12/19at 08:28; Start 03/04/19 at 21:00 Folic Acid (Folic Acid) 1 mg DAILY PO Last administered on 03/12/19 08:27; Start 03/05/19 at 09:00 Furosemide (Lasix) 20 mg DAILY PO Last administered on 03/12/19 08:28; Start 03/12/19 at 09:00; Stop 03/16/19 at 09:01 Loratadine (Claritin) 10 mg DAILY PO Last administered on 03/12/19 08:28; Start 03/05/19 at 09:00 Miscellaneous (Unresolved Clarification Entry) SEE LABEL COMMENTS DAILY XX ; Start 03/11/19 at 09:00; Stop 03/11/19 at 15:54; Status DC Multivitamins (Theragram-M) 1 tab DAILY PO Last administered on 03/12/19 08:27; Start 03/05/19 at 09:00 Omeprazole (PriLOSEC) 40 mg DAILY PO Last administered on 03/12/19 08:27; Start 03/05/19 at 09:00 Ondansetron HCl (Zofran) 4 mg Q6HP PRN PO NAUSEA; Start 03/04/19 at 17:15 Oxazepam (Serax) 10 mg TID PO Last administered on 03/12/19 08:27; Start 03/04/19 at 21:00 Oxycodone HCl (Roxicodone, Oxyir) 5 mg Q4HP PRN PO PAIN Last administered on 03/12/19 13:28; Start 03/04/19 at 17:15 Oxycodone HCl (Roxicodone, Oxyir) 10 mg Q4HP PRN PO SEVERE PAIN (PS 8-10) Last administered on 03/11/19 14:35; Start 03/04/19 at 17:45; Stop 03/11/19 at 15 :52; Status DC Rivaroxaban (Xarelto) 20 mg DAILY@0800 PO Last administered on 03/12/19 08:27; Start 03/05/19 at 08:00 Senna (Senokot) 1 tab QHS PO Last administered on 03/10/19 20:10; Start 03/04 at 21:00 Thiamine HCl (Thiamine HCl) 100 mg DAILY PO Last administered on 03/12/19 08:27; Start 03/05/19 at 09:00 PAT HAYWOOD MD March 12, 2019 14:13
--- NOTE | 2019-03-12 15:05 | IPNPDOC ---
Date Seen The patient was seen on 03/12/19. Progress Note Vascular Surgery Dr Guzmán. HPI: 44 yo M with RLE pain, CTA showed a total occlusion of the right popliteal artery. S/P catheter guided thrombolytic procedure, complicated by compartment syndrome postoperatively, s/p fasciotomy of the right calf. RLE angiogram with angioplasty of the right popliteal artery, anterior tibial artery, peroneal artery and posterior tibial artery. Postoperatively, the patient has had wound Vac placement. The pt wound vacs have been removed and changed today, pt tolerated well. Pt with BLE edema, improves with elevation. Denies any fevers, chills, weakness, fatigue, Headache, Chest Pain, Shortness of breath, cough, palpitations, abdominal pain, N/V/D or changes in bowel or bladder habits. PE: GEN: 44yoM, appears stated age. Alert and oriented x 3. Pleasant, interactive. HEENT: Normocephalic, atraumatic. Sclera are nonicteric. Conjunctiva without injection. Moist mucous membranes. CHEST: Regular rate and rhythm, +S1, +S2 LUNGS: Clear to auscultation bilaterally. No wheezes, rales, or rhonchi. ABD: Round, soft, non-tender, non-distended. +Bowel sounds throughout. EXT: Wounds appear to be granulating well. Wounds examined as per Dr Mix today, healing well, good granulation tissue. Wound vac to be continued on both wounds. SKIN: [place], dry, warm. No rashes. NEURO: Alert and oriented x 3. Cranial nerves III-XII are intact. No focal deficits appreciated. A&P: 44 yo M with RLE pain, CTA showed a total occlusion of the right popliteal artery. S/P catheter guided thrombolytic procedure, complicated by compartment syndrome postoperatively, s/p fasciotomy of the right calf. RLE angiogram with angioplasty of the right popliteal artery, anterior tibial artery, peroneal artery and posterior tibial artery. Postoperatively, the patient has had wound Vac placement. 1. Continue vac changes Q MWF. 2. Continue PT/OT. 3. Possibly consider skin graft as per Dr Guzmán 2-3 weeks. 4. ARU planning to d/c sunday03/14/19, recommend to d/c with wound vac and outpt FU in office with Dr Guzmán. VS, I&O, 24H, Fishbone Vital Signs/I&O Vital Signs Date Time Temp Pulse Resp B/P (MAP) Pulse Ox O2 Delivery O2 Flow Rate FiO2 03/12/19 13:58 16 03/12/19 08:27 87 123/78 03/12/19 06:00 97.5 99 I&O- Last 24 Hours up to 6 AM 03/12/19 06:00 Intake Total 1620 ml Output Total 2100 ml Balance -480 ml Laboratory Data 24H LABS Laboratory Tests 2 03/12/19 06:37: Immature Granulocyte % (Auto) 0.6, White Blood Count 6.2, Red Blood Count 3.41L, Hemoglobin 10.1L, Hematocrit 30.6L, Mean Corpuscular Volume 89.7, Mean Corpuscular Hemoglobin 29.6, Mean Corpuscular Hemoglobin Concent 33.0, Red Cell Distribution Width 15.9H, Platelet Count 990H, Neutrophils (%) (Auto) 65.7, Lymphocytes (%) (Auto) 22.7L, Monocytes (%) (Auto) 9.4H, Eosinophils (%) (Auto) 1.1, Basophils (%) (Auto) 0.5, Neutrophils # (Auto) 4.1, Lymphocytes # (Auto) 1 .4L, Monocytes # (Auto) 0.6, Eosinophils # (Auto) 0.1, Basophils # (Auto) 0.0, Nucleated Red Blood Cells % (auto) 0.0, Anion Gap 8, Glomerular Filtration Rate > 60.0, Blood Urea Nitrogen 9, Creatinine 0.81, Sodium Level 137, Potassium Level 4.2, Chloride Level 104, Carbon Dioxide Level 25, Calcium Level 8.5 CBC/BMP Laboratory Tests 03/12/19 06:37 Red Blood Count 3.41 L, Mean Corpuscular Volume 89.7, Mean Corpuscular Hemoglobin 29.6, Mean Corpuscular Hemoglobin Concent 33.0, Red Cell Distribution Width 15.9 H, Neutrophils (%) (Auto) 65.7, Lymphocytes (%) (Auto) 22.7 L, Mon ocytes (%) (Auto) 9.4 H, Eosinophils (%) (Auto) 1.1, Basophils (%) (Auto) 0.5, Neutrophils # (Auto) 4.1, Lymphocytes # (Auto) 1.4 L, Monocytes # (Auto) 0.6, Eosinophils # (Auto) 0.1, Basophils # (Auto) 0.0, Calcium Level 8.5 Janel Mayfield March 12, 2019 15:05
--- NOTE | 2019-03-12 16:27 | IPN ---
DATE: 03/12/2019 SUBJECTIVE Mr. Pride will be discharged in couple of days and question is how to transition from his current 10 mg three times a day Serax does that was started for the purpose of prophylaxis against possible alcohol withdrawal nearing and after discharge. PHYSICAL EXAMINATION: The patient is alert, pleasant, no distress. He has the wound Vac in place. He is conversant, attentive and motivated to stay away from alcohol and tobacco due to his recent serious health crisis. ASSESSMENT History of alcohol abuse, on prophylaxis for alcohol withdrawal treatment. Status post arterial occlusion and post treatment compartment syndrome. Wound Vac in place. Large area of skin loss. which will likely require graft. PLAN: I suggest reducing his Serax to 10 mg twice a day for 2 days. At discharge one 10 mg dose at bedtime as needed for perhaps another [address] Bryson' suggestion of adding gabapentin would be excellent, both from pain modulation standpoint and to ease transition off Serax. Discussed possibility of adding bupropion if he has trouble resisting temptation to abuse tobacco and/or alcohol in the future. Serax reduced from 10 three times a day to twice a day today. Again, transition to once a day as needed as perhaps at bedtime for up to 5 days after discharge. [facility]
[2019-03-12] MEDS: GABAPENTIN 100 MG CAP PO SCH ×2 (17:08→20:07)
[2019-03-12 20:00] VITALS: BP 117/72
[2019-03-12] MEDS: SENNA 8.6 MG TAB (SENOKOT) PO SCH (20:07)
[2019-03-13 06:00] VITALS: BP 133/71
[2019-03-13] MEDS: oxyCODONE 5MG TAB PO PRN ×3 (06:38→21:28)
[2019-03-13] MEDS: ASPIRIN 81 MG CHEW TABLET PO SCH (09:04)
[2019-03-13] MEDS: OMEPRAZOLE 20 MG CAP PO SCH (09:04)
[2019-03-13] MEDS: RIVAROXABAN 20 MG TAB (XARELTO) PO SCH (09:05)
[2019-03-13] MEDS: LORATADINE 10 MG TAB PO SCH (09:05)
[2019-03-13] MEDS: FUROSEMIDE 20 MG TAB PO SCH (09:05)
[2019-03-13] MEDS: FOLIC ACID 1 MG TAB PO SCH (09:05)
[2019-03-13] MEDS: DOCUSATE SODIUM 100 MG CAP PO SCH ×2 (09:05→21:26)
[2019-03-13] MEDS: THIAMINE 100 MG TAB PO SCH (09:05)
[2019-03-13] MEDS: ATORVASTATIN 20 MG TAB PO SCH (09:05)
[2019-03-13] MEDS: OXAZEPAM 10 MG CAP PO SCH ×2 (09:06→21:27)
[2019-03-13] MEDS: GABAPENTIN 100 MG CAP PO SCH ×3 (09:06→21:26)
[2019-03-13] MEDS: amLODIPine 10 MG TAB PO SCH (09:06)
[2019-03-13] MEDS: MULTIVITAMINS/MINERALS THERAP 1 TAB PO SCH (09:06)
[2019-03-13] MEDS ORDERED: ASPI81CH8 PO (12:53)
[2019-03-13] MEDS ORDERED: AMLO10TA5 PO (12:53)
[2019-03-13] MEDS ORDERED: OXYCO5TA PO (12:53)
[2019-03-13] MEDS ORDERED: OMEP-218 PO (12:53)
[2019-03-13] MEDS ORDERED: OXAZ10CA3 PO (12:53)
[2019-03-13] MEDS ORDERED: FOLI1TAB11 PO (12:53)
[2019-03-13] MEDS ORDERED: ATOR1TAB21 PO (12:53)
[2019-03-13] MEDS ORDERED: THIA100TA PO (12:53)
[2019-03-13] MEDS ORDERED: GABA-1171 PO (12:53)
[2019-03-13] MEDS ORDERED: CLAR10TA7 PO (12:53)
[2019-03-13] MEDS ORDERED: XARE20TA PO (12:53)
--- NOTE | 2019-03-13 13:34 | IPNPDOC ---
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 He declines getting outpatient addiction counseling at this time and agrees to continue tapering his opioids. REVIEW OF SYSTEMS: The following is a completed review of systems and has been reviewed. Review of systems otherwise unremarkable. PAIN: Patient self reports right calf pain EYES: Negative for recent vision changes EARS, NOSE, & THROAT: Denies rhinorrhea, dysphagia or hearing loss CARDIOVASCULAR: denies chest pain or palpitations PULMONARY: Negative. Denies shortness of breath. GASTROINTESTINAL: Negative for diarrhea or constipation GENITOURINARY: denies dysuria MUSCULOSKELETAL: right foot drop and s/p right calf fasciotomy NEUROLOGICAL: no seizure activity or tremors HEMATOLOGICAL:+ anemia SKIN: right LE fasciotomy with wound vac PSYCHIATRIC: Unremarkable All other review of systems found to be negative. PHYSICAL EXAMINATION: VITAL SIGNS: Please see below. GENERAL: Pleasant and cooperative. No acute distress. HEENT: PERRL. Extraocular movements intact. scleral icterus CARDIOVASCULAR: Regular rate and rhythm. No murmurs, rubs, or gallops LUNGS: Clear to auscultation bilaterally. No wheezes. No rhonchi ABDOMEN: Soft, nontender, nondistended. Positive bowel sounds. Normal active bowel sounds NEUROLOGICAL: Alert and oriented times three. Cranial nerves II through XII grossly intact. Sensation grossly intact in all 4 limbs, though slightly decreased in right foot EXTREMITIES: 5\5 strength bilateral upper extremities. 5\5 strength right hip flexion and knee extension 3/5 ankle eversion and inversion, 1/5 ankle DF. 5/5 left LE right foot edematous, non-tender SKIN: right lateral and anterior tibial fasciotomies with wound vac- healing well left lower abdomen ecchymotic ASSESSMENT:44-year-old M with past medical history of ETOH abuse who presents status post right popliteal artery occlusion s/p revascularization complicated by compartment syndrome s/p fasciotomy with right foot drop. PLAN: 1. Rehab: PT, OT, assess for DME needs, TTWB to RLE, ambulating further with RW, room privileges 2. Neuro: monitor for delirium tremens, currently on Serax, denies visual hallucinations, no tremor, vitals stable- medicine recs appreciated, will begin Serax taper while here and add low dose Gabapentin for anticonvulsant effects -c/u thiamine and folate 3. CArdio: pmh HLD c/u statin, pmh HTN c/u Norvasc s/p right popliteal artery occlusion and revascularization 02/24 complicated by compartment syndrome s/p fasciotomy 02/25/[address] Guzmán-will consult and will need outpatient f/u- c/u XArelto and ASA 4. 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 Pain: start to taper down on oxycodone and c/u Tylenol 6. SKin: wound vac changes -, plan for skin graft in the next 2-3 weeks per vascular recs- acewrap and elevate right foot when in bed- c/u low dose lasix for edema -ordered ID consult for elevated CRP and dependent warmth and erythema of the foot which resolved with elevation- no intervention, recs appreciated 7. DVT ppx: on full dose Xarelto for recent popliteal artery occlusion 8. Heme: anemia c/u iron supplements, consider transfusion if <8-stable 9. GI ppx: Omeprazole 10. Dispo: 03/14/19 to home, progressing towards goals Allergies Coded Allergies: No Known Allergies (Unverified , 11/12/17) Vital Signs Vital Signs Date Time Temp Pulse Resp B/P (MAP) Pulse Ox O2 Delivery O2 Flow Rate FiO2 03/13/19 13:20 18 03/13/19 09:06 82 133/71 03/13/19 06:00 99.5 95 Current Medications Current Medications Current Medications Acetaminophen (Tylenol Tab) 650 mg Q4HP PRN PO MILD PAIN (PS 1-4); Start 03/04/19 at 17:15 Al Hydrox/Mg Hydrox/Simethicone (Mylanta) 30 ml Q4HP PRN PO DYSPEPSIA; Start 03/04/19 at 17:15 Amlodipine Besylate (Norvasc) 10 mg DAILY PO Last administered on 03/13/19at 09:06; Start 03/05/19 at 09:00 Aspirin (Aspirin Chewable) 81 mg DAILY PO Last administered on 03/13/19at 09:04; Start 03/05/19 at 09:00 Atorvastatin Calcium (Lipitor) 20 mg DAILY PO Last administered on 03/13/19 09:05; Start 03/05/19 at 09:00 Bisacodyl (Dulcolax Tab) 5 mg DAILYPRN PRN PO CONSTIPATION; Start 03/04/19 at 17:15 Docusate Sodium (Colace) 100 mg BID PO Last administered on 03/13/19 09:05; Start 03/04/19 at 21:00 Folic Acid (Folic Acid) 1 mg DAILY PO Last administered on 03/13/19 09:05; Start 03/05/19 at 09:00 Furosemide (Lasix) 20 mg DAILY PO Last administered on 03/13/19 09:05; Start 03/12/19 at 09:00; Stop 03/16/19 at 09:01 Gabapentin (Neurontin) 100 mg TID PO Last administered on 03/13/19 09:06; Start 03/12/19 at 16:00 Loratadine (Claritin) 10 mg DAILY PO Last administered on 03/13/19 09:05; Start 03/05/19 at 09:00 Miscellaneous (Unresolved Clarification Entry) SEE LABEL COMMENTS DAILY XX ; Start 03/11/19 at 09:00; Stop 03/11/19 at 15:54; Status DC Multivitamins (Theragram-M) 1 tab DAILY PO Last administered on 03/13/19 09:06; Start 03/05/19 at 09:00 Omeprazole (PriLOSEC) 40 mg DAILY PO Last administered on 03/13/19 09:04; Start 03/05/19 at 09:00 Ondansetron HCl (Zofran) 4 mg Q6HP PRN PO NAUSEA; Start 03/04/19 at 17:15 Oxazepam (Serax) 10 mg BID PO Last administered on 03/13/19 09:06; Start 03/12/19 at 21:00 Oxazepam (Serax) 10 mg TID PO Last administered on 03/12/19 08:27; Start 03/04/19 at 21:00; Stop 03/12/19 at 15:37; Status DC Oxycodone HCl (Roxicodone, Oxyir) 5 mg Q4HP PRN PO PAIN Last administered on 03/12/19 13:28; Start 03/04/19 at 17:15; Stop 03/12/19 at 15:33; Status DC Oxycodone HCl (Roxicodone, Oxyir) 5 mg Q6HP PRN PO PAIN Last administered on 03/13/19 13:20; Start 03/12/19 at 19:00 Oxycodone HCl (Roxicodone, Oxyir) 10 mg Q4HP PRN PO SEVERE PAIN (PS 8-10) Last administered on 03/11/19 14:35; Start 03/04/19 at 17:45; Stop 03/11/19 at 15:52; Status DC Rivaroxaban (Xarelto) 20 mg DAILY@0800 PO Last administered on 03/13/19 09:05; Start 03/05/19 at 08:00 Senna (Senokot) 1 tab QHS PO Last administered on 03/12/19 20:07; Start 03/04/19 at 21:00 Thiamine HCl (Thiamine HCl) 100 mg DAILY PO Last administered on 03/13/19 09:05; Start 03/05/19 at 09:00 PAT HAYWOOD MD March 13, 2019 13:34
[2019-03-13 14:00] VITALS: BP 122/72
[2019-03-13 20:00] VITALS: BP 108/61
[2019-03-13] MEDS: SENNA 8.6 MG TAB (SENOKOT) PO SCH (21:53)
[2019-03-14 06:00] VITALS: BP 111/72
[2019-03-14] MEDS: MULTIVITAMINS/MINERALS THERAP 1 TAB PO SCH (08:54)
[2019-03-14] MEDS: ATORVASTATIN 20 MG TAB PO SCH (08:54)
[2019-03-14] MEDS: OXAZEPAM 10 MG CAP PO SCH ×2 (08:54→20:53)
[2019-03-14] MEDS: ASPIRIN 81 MG CHEW TABLET PO SCH (08:54)
[2019-03-14] MEDS: FOLIC ACID 1 MG TAB PO SCH (08:54)
[2019-03-14] MEDS: OMEPRAZOLE 20 MG CAP PO SCH (08:54)
[2019-03-14] MEDS: LORATADINE 10 MG TAB PO SCH (08:54)
[2019-03-14] MEDS: THIAMINE 100 MG TAB PO SCH (08:54)
[2019-03-14] MEDS: RIVAROXABAN 20 MG TAB (XARELTO) PO SCH (08:54)
[2019-03-14] MEDS: DOCUSATE SODIUM 100 MG CAP PO SCH ×2 (08:55→20:54)
[2019-03-14] MEDS: GABAPENTIN 100 MG CAP PO SCH ×3 (08:55→20:53)
[2019-03-14] MEDS: oxyCODONE 5MG TAB PO PRN ×3 (08:55→20:54)
[2019-03-14] MEDS: amLODIPine 10 MG TAB PO SCH (08:55)
[2019-03-14] MEDS: FUROSEMIDE 20 MG TAB PO SCH (08:55)
[2019-03-14 14:00] VITALS: BP_SYST 111; BP_SYST 119; BP_DIAS 68; BP_DIAS 70
--- NOTE | 2019-03-14 17:36 | IPN ---
DATE: 03/14/2019 Karthik is doing great. He is going home today. His wound vacuum-assisted closure (VAC) was changed this afternoon by Casi and will be changed on Sunday. After that he will have public health, no nausea,vomiting, or diarrhea. No complaints. PHYSICAL EXAMINATION: Left lower extremity: No edema. Wound VAC was removed from the lateral and medial wound. There is granulation tissue, healthy muscle bilaterally. There is no evidence of infection. No purulence. No cellulitis. The tendon on the right lateral wound is still exposed, measuring about 3 cm. IMPRESSION: Compartment syndrome, status post fasciotomies with no evidence of infection. The patient has not received any antibiotic. Persistent lower extremity edema on the right side needs elevation, most likely related to surgery. PLAN Discharge the patient home today SUNNI
[2019-03-14 20:00] VITALS: BP 123/78
[2019-03-14] MEDS: SENNA 8.6 MG TAB (SENOKOT) PO SCH (20:54)
[2019-03-15 06:00] VITALS: BP 126/74
[2019-03-15] MEDS: DOCUSATE SODIUM 100 MG CAP PO SCH (09:00)
[2019-03-15 09:01] VITALS: BP 126/74
[2019-03-15] MEDS: ASPIRIN 81 MG CHEW TABLET PO SCH (09:01)
[2019-03-15] MEDS: RIVAROXABAN 20 MG TAB (XARELTO) PO SCH (09:01)
[2019-03-15] MEDS: amLODIPine 10 MG TAB PO SCH (09:01)
[2019-03-15] MEDS: THIAMINE 100 MG TAB PO SCH (09:02)
[2019-03-15] MEDS: FOLIC ACID 1 MG TAB PO SCH (09:02)
[2019-03-15] MEDS: LORATADINE 10 MG TAB PO SCH (09:02)
[2019-03-15] MEDS: MULTIVITAMINS/MINERALS THERAP 1 TAB PO SCH (09:02)
[2019-03-15] MEDS: ATORVASTATIN 20 MG TAB PO SCH (09:02)
[2019-03-15] MEDS: GABAPENTIN 100 MG CAP PO SCH (09:02)
[2019-03-15] MEDS: OXAZEPAM 10 MG CAP PO SCH (09:02)
[2019-03-15] MEDS: FUROSEMIDE 20 MG TAB PO SCH (09:02)
[2019-03-15] MEDS: OMEPRAZOLE 20 MG CAP PO SCH (09:02)
[2019-03-15] MEDS: oxyCODONE 5MG TAB PO PRN (09:04)
== END 2019-03-15 10:10 | disposition home health service (06) | DRG 351 ==
LOC: M PM&R 17:30
PROVIDERS: ADMIT Physical Medicine & Rehabilitation; ATTEND Physical Medicine & Rehabilitation
DX: M21.371 Foot drop, right foot (principal); M79.A21 Nontraumatic compartment syndrome of right lower extremity; G57.31 Lesion of lateral popliteal nerve, right lower limb; F10.10 Alcohol abuse, uncomplicated; D64.9 Anemia, unspecified; F17.200 Nicotine dependence, unspecified, uncomplicated; R26.89 Other abnormalities of gait and mobility; Z79.82 Long term (current) use of aspirin; Z79.01 Long term (current) use of anticoagulants; Z79.899 Other long term (current) drug therapy

== ENCOUNTER → 2019-03-25 | Outpatient (REF) | payer OTHER ==
[~2019-03-25] MED LIST changes: +ASPI81CH8 PO; +CLAR10TA7 PO; +GABA-1171 PO; +GABA-843 PO; +OMEP-218 PO; +PERCOCET PO
== END ==
LOC: M LAB REF 16:58
PROVIDERS: ATTEND Surgery Vascular Surgery
DX: S81.801D Unspecified open wound, right lower leg, subsequent encounter (principal)

== ENCOUNTER 2019-03-31 05:56 | Day surgery (SDC) | payer OTHER ==
[~2019-03-31] VITALS: Ht 162.6 cm; Wt 79.4 kg
[~2019-03-31 05:56] MED LIST changes: -PERCOCET PO
[2019-03-31] MEDS ORDERED: LIDOCAINE 1% MDV 20ML VIAL SQ PRN (06:00)
[2019-03-31] MEDS ORDERED: LR 1,000 ML IV ONE (06:15)
[2019-03-31] MEDS ORDERED: ROCURONIUM BROMIDE 50 MG/5 ML VIAL As Ordered ONE (06:56)
[2019-03-31] MEDS ORDERED: ONDANSETRON 4MG/2ML VIAL (J2405) As Ordered ONE (06:56)
[2019-03-31] MEDS ORDERED: PROPOFOL 200 MG/20 ML VIAL As Ordered ONE ×2 (06:56→09:40)
[2019-03-31] MEDS ORDERED: fentaNYL 250 MCG/5 ML INJECTION (J3010) As Ordered ONE (06:56)
[2019-03-31] MEDS ORDERED: dexameTHASONE 4 MG/ML 1ML VIAL (J1100) As Ordered ONE (06:56)
[2019-03-31] MEDS ORDERED: LIDOCAINE 2% INJ 100 MG/5 ML SDV (FOR ANES.) As Ordered ONE (06:56)
[2019-03-31] MEDS ORDERED: KETAMINE HCL 200 MG/20 ML VIAL As Ordered ONE (06:57)
[2019-03-31] MEDS ORDERED: MIDAZOLAM INJ 2 MG/2 ML VIAL (J2250) As Ordered ONE (06:57)
[2019-03-31] MEDS ORDERED: BUPIVACAINE/EPIN 0.5% 30 ML VIAL As Ordered ONE (07:17)
[2019-03-31] MEDS ORDERED: EPINEPHrine 1MG/ML INJ 30ML MD-VIAL As Ordered ONE (07:17)
[2019-03-31] MEDS ORDERED: SUGAMMADEX SODIUM 500 MG/5 ML VIAL (BRIDION) As Ordered ONE (08:00)
[2019-03-31] MEDS ORDERED: CALCIUM CHLORIDE 10% 1 GM/10 ML SYR As Ordered ONE (08:05)
[2019-03-31] MEDS ORDERED: PERCOCET PO (10:01)
[2019-03-31] MEDS ORDERED: PERCOCET 5MG/325MG TAB As Ordered ONE (10:11)
[2019-03-31] MEDS ORDERED: METOCLOPRAMIDE INJ 10MG/2ML VIAL (J2765) IV PRN (10:15)
[2019-03-31] MEDS ORDERED: MORPHINE 10 MG/ML 1ML VIAL (J2270) IV PRN (10:15)
[2019-03-31] MEDS ORDERED: ONDANSETRON 4MG/2ML VIAL (J2405) IV PRN (10:15)
[2019-03-31] MEDS ORDERED: PERCOCET 5MG/325MG TAB PO PRN (10:15)
[2019-03-31] MEDS ORDERED: fentaNYL 100 MCG/2 ML INJECTION (J3010) IV PRN (10:15)
--- NOTE | 2019-03-31 10:16 | ROOPDOC ---
[facility] Report Of Operation Report of Operation DATE OF PROCEDURE: 03/31/19 PREPROCEDURE DIAGNOSES: Right lower extremity medial and lateral fasciotomy wound status post wound VAC therapy. POSTPROCEDURE DIAGNOSES: Same. PROCEDURE: 1. Split thickness skin graft right lower extremity medial fasciotomy wound 74 cm, and lateral fasciotomy wound 198 cm with right thigh donor site SURGEON: Alejandro Hardy MD ANESTHESIA: Internal anesthesia local. INDICATION FOR PROCEDURE: Mr. Pride is a very pleasant 44-year-old gentleman who came in with acute ischemia of his right lower extremity with a popliteal artery occlusion. He underwent thrombolysis and revascularization and subsequently developed acute apartment syndrome of the right calf. 4 compartment fasciotomies were done through medial and lateral incision on the right lower extremity and he is subsequently managed his incisions with a wound VAC. The liver was granulated and we bring him in today for split-thickness skin graft. Risks benefits and alternatives were explained and he is agreeable to proceed. Informed consent was obtained. PROCEDURE: The patient was brought to the OR in stable condition and placed supine on the OR table. General endotracheal anesthesia and antibiotics were administered without complication. His right lower extremity was prepped and draped in sterile fashion. A timeout was performed. The medial fasciotomy incision required very little preparation for skin graft. As well granulated and the granulation tissue is level with the skin. There is some new skin coming in from the edges. Biofilm was removed. On the lateral fas ciotomy, we did do a little more debridement around the wound edges to removed heaped up granulation. Once we had a sufficient amount removed down to healthy tissue, both wounds were irrigated with saline and Bovie was used for hemostasis were needed. Incisions were measured and the measurements were as follows: Medial wound is 22.5 cm x 3.3 cm x 0.1 cm length with the depth respectively. The lateral incision is 32 cm x 6.2 cm x 0.1 cm length with the depth respectively. A dermatome was used to harvest skin from the upper thigh. 3 harvest were done. 2 of the skin harvests were meshed with a 1.5:1 ratio and 1 of the skin harvests was meshed with a 3:1 ratio. We first covered the medial fasciotomy using the 1.5:1 ratio. Salix were used to secure the skin graft to the skin edges and Monocryl interrupted sutures were used to approximate the pieces in the middle. Following this, Adaptic was placed over the skin graft and a wound VAC was applied. We then utilized some of the 1.5:1 ratio and all of the 3:1 ratio skin harvests to cover the lateral fasciotomy. This is a much larger wound. Quentin were used at the skin edges and Monocryl was used to secure the graft in the center. A wound VAC was applied over this lateral fasciotomy as well and the tumor bridged over the anterior ankle and placed in -125 mmHg low continuous suction. Following this, we noted good suction and no air leaks. We reinforced the VAC and a 4 inch Giuseppe and 6 inch Giuseppe were used throughout the leg to diminish edema and stabilize the wound VAC. The patient was then allowed to awaken from anesthesia and was taken to PACU in stable condition. ESTIMATED BLOOD LOSS: Approximately 25 mL. COMPLICATIONS: None. DRAINS: None SPECIMENS: None PLAN: The patient will go home with a wound VAC and Giuseppe wrap to help maintain suction. Ideally, the VAC would remain in place for the next 5 days. It will be imperative for the patient to continue to watch his canister and make sure it is not getting to fall. He should elevate his right lower extremity as much as p ossible to diminish edema and minimize the chance of the VAC will not remain adherent. If there is any problem with the VAC the patient is to call me or come to clinic to be seen at once. He has a clinic appointment this Sunday for the first check of the skin graft. The right thigh Tegaderm should stay in place for the next 7 days. During that time, the top dressing cover can be changed as needed. Prescription for Percocet for the next 5 days was sent electronically. Benadryl is helpful for itching from the donor site and can be used when necessary [id number]. ALEJANDRO HARDY MD Mar 31, 2019 10:15
[2019-03-31 11:15] VITALS: BP 106/59
== END 2019-03-31 11:35 | disposition home or self-care (01) ==
LOC: M SDC 05:56
PROVIDERS: ATTEND Surgery Vascular Surgery
DX: S81.801A Unspecified open wound, right lower leg, initial encounter (principal); I70.291 Other atherosclerosis of native arteries of extremities, right leg; I10 Essential (primary) hypertension; K58.9 Irritable bowel syndrome, unspecified; M12.9 Arthropathy, unspecified; F41.9 Anxiety disorder, unspecified; F32.9 Major depressive disorder, single episode, unspecified; G62.9 Polyneuropathy, unspecified; N40.0 Benign prostatic hyperplasia without lower urinary tract symptoms; Z79.899 Other long term (current) drug therapy; Z87.891 Personal history of nicotine dependence; Z79.01 Long term (current) use of anticoagulants; Z87.81 Personal history of (healed) traumatic fracture
CPT/HCPCS: 15100; 15101; J0690; J1100; J2250; J2405; J3010

== ENCOUNTER 2019-04-02 10:41 | Inpatient (IN) | payer OTHER ==
[~2019-04-02] VITALS: Ht 162.6 cm; Wt 79.5 kg
[~2019-04-02 10:41] MED LIST changes: +PERCOCET PO
[2019-04-02 12:00] VITALS: BP 128/84
[2019-04-02 12:18] LABS: HEMATOCRIT 33.9 % (42.0-52.0); HEMOGLOBIN 10.9 g/dl (13.5-17.5); MEAN CORPUSCULAR HGB CONC 32.2 g/dl (32.0-36.5); MEAN CORPUSCULAR VOLUME 87.1 fl (80.0-96.0); PLATELET COUNT, AUTOMATED 577 10^3/uL (150-450); RED BLOOD COUNT 3.89 10^6/uL (4.30-6.10); WHITE BLOOD COUNT 10.2 10^3/uL (4.0-10.0)
[2019-04-02 12:39] LABS: BLOOD UREA NITROGEN 11 MG/DL (7-18); CALCIUM LEVEL 9.2 MG/DL (8.5-10.1); CARBON DIOXIDE LEVEL 28 MEQ/L (21-32); CHLORIDE LEVEL 104 MEQ/L (98-107); CREATININE FOR GFR 0.82 MG/DL (0.70-1.30); GLOMERULAR FILTRATION RATE > 60.0 (>60); GLUCOSE, FASTING 90 MG/DL (70-100); POTASSIUM SERUM 3.4 MEQ/L (3.5-5.1); SODIUM LEVEL 140 MEQ/L (136-145)
[2019-04-02] MEDS: DOCUSATE SODIUM 100 MG CAP PO SCH ×2 (13:53→21:40)
[2019-04-02] MEDS: CEFEPIME HCL 2 GM in D5W MINI-BAG PLUS 50 ML IV SCH (13:53)
[2019-04-02 14:00] VITALS: BP 116/67
[2019-04-02] MEDS ORDERED: OXYC1TAB23 PO (14:57)
[2019-04-02] MEDS ORDERED: XARE20TA PO (14:57)
[2019-04-02] MEDS ORDERED: THIA100T7 PO (14:57)
[2019-04-02] MEDS ORDERED: OMEP20CA3 PO (14:57)
[2019-04-02] MEDS ORDERED: ECOT81TA5 PO (14:57)
[2019-04-02] MEDS ORDERED: CLAR10TA7 PO (14:57)
[2019-04-02] MEDS ORDERED: ACET-907 PO (14:57)
[2019-04-02] MEDS ORDERED: FOLI1TAB11 PO (14:57)
[2019-04-02] MEDS ORDERED: AMLO10TA5 PO (14:57)
[2019-04-02] MEDS ORDERED: ATOR1TAB21 PO (14:57)
[2019-04-02] MEDS ORDERED: GABA-843 PO (14:57)
[2019-04-02] MEDS ORDERED: POTASSIUM CHLORIDE 10 MEQ SR TABLET PO ONE (15:00)
--- NOTE | 2019-04-02 15:01 | HPEPDOC ---
General Date of Admission 04/02/19 Date of Service: Apr 02, 2019 Primary Care Physician: Mahendra Rothman MD Other Providers Dr Batista Attending Physician: Mahendra Rothman MD Chief Complaint The patient is a 44-year-old male admitted with a reason for visit of Cellulitis. Source: Patient, Other (Dr Batista) History of Present Illness 44 yo male seen at Dr Batista office this AM because of foul smelling drainage from wound vac with possible cellulitis. He is POD 2 from right thigh skin graft to cover right lower leg wound. Patient was admitted with Right popliteal DVT, had TPA with revascularization, but developed compartment syndrome. Patient had subsequent emergency fasciotomy and wound vac placed on 02/27/19. Had been doing well at home with home health nurses , however, over past 1.5 weeks nurses and patient states intermittent foul smelling odor but no discharge, lasting 1 days, resolved 1-2 days and then returned. States no odor on 03/31 (skin graft surgery) but this AM, odor returned under the wound vac , and states wound vac not draining as well. Patient denies fever, N,V,CP, SOB or leg parathesia Home Medications Scheduled Amlodipine Besylate (Amlodipine Besylate) 10 Mg Tablet, 5 MG PO DAILY, (Reported) Aspirin (Aspirin EC) 81 Mg Tablet.dr, 81 MG PO QAM Atorvastatin Calcium (Atorvastatin Calcium) 20 Mg Tablet, 20 MG PO DAILY, (Reported) Folic Acid (Folic Acid) 1 Mg Tablet, 1 MG PO DAILY Gabapentin (Gabapentin) 300 Mg Capsule, 300 MG PO Q8H, (Reported) Omeprazole (Omeprazole) 40 Mg Capsule.dr, 40 MG PO DAILY Oxazepam (Oxazepam) 10 Mg Capsule, 10 MG PO BID Take one tab twice a day for 7 days, then one tab at [facility] for 7 days then stop Rivaroxaban (Xarelto) 20 Mg Tablet, 20 MG PO DAILY@0800 Thiamine HCl (Vitamin B-1) 100 Mg Tablet, 100 MG PO DAILY, (Reported) Scheduled PRN Acetaminophen (Acetaminophen) 325 Mg Tablet, 650 MG PO Q4H PRN for PAIN OR FEVER Loratadine (Claritin) 10 Mg Capsule, 10 MG PO DAILY PRN for ALLERGIES, (Reported) Oxycodone HCl (Oxycodone HCl) 5 Mg Tablet, 5 MG PO BID PRN for PAIN Oxycodone/Acetaminophen (Oxycodone-Acetaminophen 5-325) 1 Each Tablet, 1 TAB PO Q6HP PRN for PAIN Allergies Coded Allergies: No Known Allergies (Unverified , 11/12/17) Past Medical History Medical History DVT HTN Hyperlipidemia Enviromental Allergies GERD Surgical History 2019 right leg fasciotomy 2019 right leg skin graft Family History Significant Family History: Cancer (father from lung cancer; mother recovering from breast cancer), Hypertension Social History * Smoker: former Smoker (quit 37 days ago) Alcohol: Denies (quit 37 days ago) Drugs: denies A-FIB/CHADSVASC A-FIB History Current/History of A-Fib/PAF?: No Review of Systems Other systems 10 comprehensive systems reviewed and negative except as per HPI Physical Examination General Exam: Positive: Alert, Cooperative, No Acute Distress Eye Exam: Positive: PERRLA, EOMI ENT Exam: Positive: Atraumatic, Mucous membr. moist/pink Neck Exam: Positive: Supple, +2 carotid pulse wo bruit Chest Exam: Positive: Clear to auscultation, Normal air movement; Negative: Rales, Rhonchi, Wheezing, Diminished Heart Exam: Positive: Rate Normal, Regular Rhythm Abdomen Exam: Positive: Normal bowel sounds, Soft (NT ND) Extremity Exam: Positive: Normal pulses, Other (right leg dressing intact from thigh, lower leg (changed at vascular surgeon office ). ) Skin Exam: Positive: Other skin issue (right leg skin exam per Dr Batista note) Neuro Exam: Positive: Normal Speech, Strength at 5/5 X4 ext, Normal Tone, Sensation Intact, Cranial Nerves 3-12 NL Psych Exam: Positive: Mental status NL, Mood NL, Oriented x 3 Vital Signs Vital Signs Label Value Date Time Patient Temperature 98.2 degrees F 04/02/19 1200 Temperature Source Temporal 04/02/19 1200 Pulse 68 04/02/19 1200 Respiratory Rate 18 bpm 04/02/19 1200 Blood Pressure Assessment 128/84 (99) 04/02/19 1200 Bedside Pulse Oximetry 100 % 04/02/19 1200 Laboratory Data Labs 24H Laboratory Tests 04/02/19 11:58 Red Blood Count 3.89 L, Mean Corpuscular Volume 87.1, Mean Corpuscular Hemoglobin 28.0, Mean Corpuscular Hemoglobin Concent 32.2, Red Cell Distribution Width 15.8 H, Calcium Level 9.2 Microbiology Blood culture pending Assessment/Plan 1) possible cellulitis right lower extremity based on increased WBC, Foul odor, etc Cefepime IV, prn oxycodone for pain. Consult Dr Batista BC pending. possible d/c in 2 days depending on clinical course 2) HTN -stable on current regimen 3) DVT 02/2019 - continue xarelto (patient takes in AM) 4) GERD - continue with PPI Case discussed with ECONOMIC ADVISER for Dr Rothman and will resume care in AM. CODE : FULL DVT PROPHYLAXIS: none - as patient on xarelto Plan / VTE VTE Prophylaxis Ordered?: No (on xarelto) DAGO ZEPEDA DO Apr 02, 2019 11:20
--- NOTE | 2019-04-02 17:40 | CR.PDOC ---
General Date of Consultation: Apr 02, 2019 Consultation REASON FOR CONSULTATION/CHIEF COMPLAINT: "I felt like my right leg had a funny smell " HISTORY OF PRESENT ILLNESS: Mr. Pride is a very pleasant 44-year-old gentleman who underwent tPA thrombolysis and angioplasty of his right popliteal artery due to an acute thrombosis with ischemic right lower extremity. After revascularization, the patient developed an acute compartment syndrome and underwent 4 compartment fasciotomies in the right calf. Post op from this, the patient did well with wound VAC therapy was sent to rehabilitation and eventually discharged home with wound VAC therapy through home health. We brought him in on Sunday, he is now postop day 2, for a split-thickness skin graft with a right thigh donor site, and right calf fasciotomy split-thickness skin grafts medial and laterally, and wound VAC therapy. The patient went home the day of surgery, but called this morning was concerned that there was some odor from his right leg. He wasn't sure if there might be infection starting under the VAC. We asked him to come immediately to clinic so I can take a look. I removed the wound VAC, and thankfully the skin grafts still appear to be doing well so far. There was some fibrinous exudate especially around the lateral incision, and a little bit of odor, along with some erythema around the skin edge. I agree with the patient that this is concerning for possible infection and we will admit him for IV antibiotics to try and do our best to encourage healing of the skin grafts. The sites were fairly large and required quite a bit of donor skin, and we would hate have to redo the whole thing due to loss of graft from infection. She is agreeable to admitted for IV antibiotics we will speak with her hospitalist team about helping us with management of his medical issues and antibiotics. We appreciate their assistance in advance. I will watch the wound carefully and change the wound VAC when necessary. I did reapply it in clinic today, and he had a good seal. We will continue wound VAC therapy to -125 mmHg low continuous suction. ALLERGIES: Please see below. HOME MEDICATIONS: Please see below. PAST MEDICAL HISTORY: 1. Alcoholism, the patient has not had an alcoholic drink since his hospitalization a month ago 2. Tobacco abuse, but the patient has not had tobacco since his hospitalization a month ago 3. Hypertension 4. Gastroesophageal reflux disease 5. Neuropathy 6. Atherosclerosis of the qawalangin arteries PAST SURGICAL HISTORY: 1. Right popliteal artery thrombolysis for acute ischemia and angioplasty 2. Right calf 4 compartment fasciotomy 3. Right calf split-thickness skin graft to fasciotomies FAMILY HISTORY: Heart disease, cancer SOCIAL HISTORY: Currently patient is living with his mother. He denies current tobacco or alcohol use although he is had troubles with abuse of both in the past. No illicit drug use. REVIEW OF SYSTEMS: CONSTITUTIONAL: Denies fevers or chills, weight loss or weight gain HEENT: Denies vision changes or hearing loss. Denies dysphagia or dysphasia. CARDIOVASCULAR: Denies chest pain or palpitations. RESPIRATORY: Denies shortness of breath or cough. GENITOURINARY: Denies dysuria or hesitation. MUSCULOSKELETAL: Positive for pain and fasciotomy incisions right calf GASTROINTESTINAL: Positive for gastroesophageal reflux disease. Denies nausea vomiting diarrhea. SKIN: Positive for calf right fasciotomy wounds. Negative for rash or skin cancers. NEUROLOGICAL: Negative for headaches, seizures, strokes, TIAs. PSYCHIATRIC: Negative for anxiety or depression. ENDOCRINE: Negative for diabetes or thyroid disease. HEMATOLOGIC/LYMPHATIC: Negative for anemia. ALLERGIC/IMMUNOLOGIC: Negative. PHYSICAL EXAMINATION: VITAL SIGNS: Please see below. GENERAL APPEARANCE: Well groomed and in no acute distress HEENT: Normocephalic. TMI. HENRIQUE. Good dentition. RESPIRATORY: Clear to auscultation bilaterally. CARDIOVASCULAR: Regular rate and rhythm. ABDOMEN: Soft nontender nondistended. EXTREMITIES: Left lower extremity warm and well perfused with palpable distal pulses. Right lower extremity with biphasic DP and PT signals. Right lower extremity fasciotomy wounds thoroughly cleaned in clinic today, removing some mild fibrinous exudate and secretions especially from the lateral fasciotomy wound. Some erythema present around the lateral fasciotomy, but no induration. Swelling noted in the right lower extremity. Left lower extremity does not have swelling. Wound VAC reapplied to right lower extremity fasciotomy wounds over Adaptic to protect skin grafts. Thus far the skin grafts appear viable. NEUROLOGICAL: No focal deficits. Alert and oriented 3. PSYCHIATRIC: Pleasant and cooperative. LABORATORY DATA: Please see below. ASSESSMENT/PLAN: 1. We appreciate the hospitalist team agreed to help us admit this patient for IV antibiotics to stave off any possible infection in the right lower extremity that could preclude take of the skin grafts to the medial and lateral fasciotomies. 2. I will closely follow the patient's grafts of the right lower extremity. Wound VAC changes as needed, the next one planned for Sunday if the wound VAC remains intact up until then. I would like to be the one to change the wound VAC due to the tenuous nature of the skin grafts. 3. Elevation of the right lower extremity to diminish swelling and serous drainage and output into the wound VAC. 4. Possible discharge home Sunday or Sunday depending on progress. Patient will resume home health at discharge for dressing changes. Vital Signs/I&O Vital Signs Date Time Temp Pulse Resp B/P (MAP) Pulse Ox O2 Delivery O2 Flow Rate FiO2 04/02/19 14:00 97.1 76 18 116/67 (83) 99 Laboratory Data Labs 24H Laboratory Tests 2 04/02/19 11:58: Nucleated Red Blood Cells % (auto) 0.0, Anion Gap 8, Glomerular Filtration Rate > 60.0, Blood Urea Nitrogen 11, Creatinine 0.82, Sodium Level 140, Potassium Level 3.4L, Chloride Level 104, Carbon Dioxide Level 28, Calcium Level 9.2 CBC/BMP Laboratory Tests 04/02/19 11:58 Red Blood Count 3.89 L, Mean Corpuscular Volume 87.1, Mean Corpuscular Hemoglobin 28.0, Mean Corpuscular Hemoglobin Concent 32.2, Red Cell Distribution Width 15.8 H, Calcium Level 9.2 Microbiology Microbiology 04/02/19 Blood Culture, Received Pending Allergies Coded Allergies: No Known Allergies (Unverified , 11/12/17) Home Medications Scheduled Amlodipine Besylate (Amlodipine Besylate) 10 Mg Tablet, 5 MG PO DAILY, (Reported) Aspirin (Ecotrin) 81 Mg Tablet.dr, 81 MG PO DAILY, (Reported) Atorvastatin Calcium (Atorvastatin Calcium) 20 Mg Tablet, 20 MG PO DAILY, (Repo rted) Folic Acid (Folic Acid) 1 Mg Tablet, 1 MG PO DAILY, (Reported) Gabapentin (Gabapentin) 300 Mg Capsule, 300 MG PO TID, (Reported) Loratadine (Claritin) 10 Mg Tablet, 10 MG PO DAILY, (Reported) Omeprazole (Omeprazole) 20 Mg Capsule.dr, 40 MG PO DAILY, (Reported) Rivaroxaban (Xarelto) 20 Mg Tablet, 20 MG PO DAILY, (Reported) Thiamine HCl (Thiamine HCl) 100 Mg Tablet, 100 MG PO DAILY, (Reported) Scheduled PRN Acetaminophen (Tylenol) 325 Mg Tablet, 650 MG PO Q6H PRN for PAIN, (Reported) Oxycodone HCl/Acetaminophen (Oxycodone-Acetaminophen 5-325) 1 Each Tablet, 1 TAB PO Q6H PRN for PAIN, (Reported) ALEJANDRO HARVEY MD Apr 02, 2019 17:40
[2019-04-02 20:00] VITALS: BP 107/68
[2019-04-02] MEDS ORDERED: ACETAMINOPHEN TAB 650MG DOSE (2X325MG) PO PRN (21:45)
[2019-04-02] MEDS: PERCOCET 5MG/325MG TAB PO PRN (21:59)
[2019-04-02] MEDS: GABAPENTIN 300 MG CAP PO SCH (21:59)
[2019-04-03] MEDS: CEFEPIME HCL 2 GM in D5W MINI-BAG PLUS 50 ML IV SCH ×2 (01:59→14:52)
[2019-04-03 06:00] VITALS: BP 134/82
[2019-04-03] MEDS: GABAPENTIN 300 MG CAP PO SCH ×3 (08:42→21:14)
[2019-04-03] MEDS: ATORVASTATIN 20 MG TAB PO SCH (08:42)
[2019-04-03] MEDS: FOLIC ACID 1 MG TAB PO SCH (08:43)
[2019-04-03] MEDS: THIAMINE 100 MG TAB PO SCH (08:43)
[2019-04-03] MEDS: DOCUSATE SODIUM 100 MG CAP PO SCH ×2 (08:43→21:14)
[2019-04-03] MEDS: PERCOCET 5MG/325MG TAB PO PRN ×2 (08:44→18:02)
[2019-04-03] MEDS ORDERED: diazePAM 5 MG TAB PO PRN (08:45)
--- NOTE | 2019-04-03 09:07 | IPNPDOC ---
Date Seen The patient was seen on 04/03/19. Progress Note Patient seen and examined this morning. He is doing well. He has not had any problems overnight aside from some mild pain that started last night and is now doing much better after some Percocet. He says he has occasional muscle cramps and nerve pain, but it is fairly intermittent. I told him we may try a little bit of low-dose Valium to help with the muscle cramps and nerve pain today, and he will still be able to take his Percocet as well if needed. He is agreeable to this plan. He is getting up with nurse assist, but is otherwise compliant with his elevation of his right lower extremity. The swelling looks so much better today, and I think the elevation is definitely helping. We will leave the wound VAC and the Giuseppe wrap intact until tomorrow, and at that point I will remove the wound VAC and decide if he needs to more days of wound VAC therapy or if the wound looks good and the skin graft is ready for non-wound VAC dressings. Hopefully we will have a good take of the skin graft, and avoid failure due to infection. We appreciate the hospitalist team managing IV antibiotics to give him the best chance possible to heal his wounds. His right thigh donor site has a little more bleeding noted today, and I removed it a ABD pads and cleaned the Tegaderm and replaced dry a BD pads. The patient tolerated this well. It will take a few more weeks for her that site to completely heal. At discharge, if he is not having significant drainage, we may switch to a Xeroform dressing covered with ABD pads. The patient is agreeable. VS, I&O, 24H, [place] Vital Signs/I&O Vital Signs Date Time Temp Pulse Resp B/P (MAP) Pulse Ox O2 Delivery O2 Flow Rate FiO2 04/03/19 08:44 16 04/03/19 06:00 98.7 81 134/82 (99) 99 I&O- Last 24 Hours up to 6 AM 04/03/19 06:00 Intake Total 1920 ml Output Total 1875 ml Balance 45 ml Laboratory Data 24H LABS Laboratory Tests 2 04/02/19 11:58: Nucleated Red Blood Cells % (auto) 0.0, Anion Gap 8, Glomerular Filtration Rate > 60.0, Blood Urea Nitrogen 11, Creatinine 0.82, Sodium Level 140, Potassium Level 3.4L, Chloride Level 104, Carbon Dioxide Level 28, Calcium Level 9.2 CBC/BMP Laboratory Tests 04/02/19 11:58 Red Blood Count 3.89 L, Mean Corpuscular Volume 87.1, Mean Corpuscular Hemoglobin 28.0, Mean Corpuscular Hemoglobin Concent 32.2, Red Cell Distribution Width 15.8 H, Calcium Level 9.2 Microbiology Microbiology 04/02/19 Blood Culture, Received Pending ALEJANDRO HARVEY MD Apr 03, 2019 09:07
--- NOTE | 2019-04-03 09:14 | IPNPDOC ---
Subjective Date Seen The patient was seen on 04/03/19. Subjective Chief Complaint/HPI 8/10 pain in right leg this am, but no other complaints Constitutional: Denies: Chills, Fever Pulmonary: Denies: Dyspnea, Cough Cardiovascular: Denies: Chest Pain, Palpitations Gastrointestinal: Denies: Nausea, Vomiting, Abdominal Pain, Diarrhea Objective Physical Examination General Exam: Positive: Alert, Cooperative, No Acute Distress Neck Exam: Positive: Supple Chest Exam: Positive: Clear to auscultation, Normal air movement; Negative: Rales, Rhonchi, Wheezing, Diminished Heart Exam: Positive: Rate Normal, Regular Rhythm Abdomen Exam: Positive: Normal bowel sounds, Soft (NT ND) Extremity Exam: Positive: Normal pulses, Other (right leg dressing intact from thigh, lower leg (changed at vascular surgeon office ). ) Skin Exam: Positive: Other skin issue (right leg skin exam per Dr Batista note) Neuro Exam: Positive: Normal Speech, Cranial Nerves 3-12 NL Psych Exam: Positive: Mental status NL, Mood NL, Oriented x 3 Assessment /Plan Problems (1) Cellulitis Status: Acute Problem Text: cont. Cefepime Wound care and wound vac per Vascular Possible d/c in am (2) Status post skin graft Problem Text: Per Dr. Hardy (3) Hypertension Status: Chronic Response to Treatment: Stable Problem Text: Amlodipine on hold (4) Alcoholism Status: Chronic Response to Treatment: Improving Problem Text: No ETOH x 30 days (5) Arterial embolism of leg Status: Acute Problem Text: s/p right pop thrombolysis 02/24 Should be on Xarelto and ASA but not ordered on admission for some rreason - I will re-start now Plan/VTE VTE Prophylaxis Ordered?: Yes (Xarelto) VS, I&O, 24H, Fishbone Vital Signs/I&O Vital Signs Date Time Temp Pulse Resp B/P (MAP) Pulse Ox O2 Delivery O2 Flow Rate FiO2 04/03/19 08:44 16 04/03/19 06:00 98.7 81 134/82 (99) 99 I&O- Last 24 Hours up to 6 AM 04/03/19 05:59 Intake Total 1920 ml Output Total 1200 ml Balance 720 ml Laboratory Data 24H LABS Laboratory Tests 2 04/02/19 11:58: Nucleated Red Blood Cells % (auto) 0.0, Anion Gap 8, Glomerular Filtration Rate > 60.0, Blood Urea Nitrogen 11, Creatinine 0.82, Sodium Level 140, Potassium Level 3.4L, Chloride Level 104, Carbon Dioxide Level 28, Calcium Level 9.2 CBC/BMP Laboratory Tests 04/02/19 11:58 Red Blood Count 3.89 L, Mean Corpuscular Volume 87.1, Mean Corpuscular Hemoglobin 28.0, Mean Corpuscular Hemoglobin Concent 32.2, Red Cell Distribution Width 15.8 H, Calcium Level 9.2 Microbiology Microbiology 04/02/19 Blood Culture, Received Pending SARAHI MCGEE PA-C Apr 03, 2019 09:14
[2019-04-03 09:23] LABS: HEMATOCRIT 33.9 % (42.0-52.0); HEMOGLOBIN 10.9 g/dl (13.5-17.5); MEAN CORPUSCULAR HGB CONC 32.2 g/dl (32.0-36.5); MEAN CORPUSCULAR VOLUME 87.1 fl (80.0-96.0); PLATELET COUNT, AUTOMATED 606 10^3/uL (150-450); RED BLOOD COUNT 3.89 10^6/uL (4.30-6.10); WHITE BLOOD COUNT 10.3 10^3/uL (4.0-10.0)
[2019-04-03] MEDS: ASPIRIN 81 MG ENTERIC TAB PO SCH (09:24)
[2019-04-03 09:41] LABS: ALBUMIN 2.6 GM/DL (3.2-5.2); ALT/SGPT 32 U/L (12-78); BILIRUBIN,TOTAL 0.3 MG/DL (0.2-1.0); BLOOD UREA NITROGEN 12 MG/DL (7-18); CALCIUM LEVEL 8.7 MG/DL (8.5-10.1); CARBON DIOXIDE LEVEL 28 MEQ/L (21-32); CHLORIDE LEVEL 104 MEQ/L (98-107); CREATININE FOR GFR 0.98 MG/DL (0.70-1.30); GLOMERULAR FILTRATION RATE > 60.0 (>60); GLUCOSE, FASTING 90 MG/DL (70-100); MAGNESIUM LEVEL 1.8 MG/DL (1.8-2.4); POTASSIUM SERUM 3.9 MEQ/L (3.5-5.1); SODIUM LEVEL 139 MEQ/L (136-145); TOTAL PROTEIN 6.5 GM/DL (6.4-8.2)
[2019-04-03] MEDS: RIVAROXABAN 20 MG TAB (XARELTO) PO SCH (09:41)
[2019-04-03 14:30] VITALS: BP 127/78
[2019-04-03 22:18] VITALS: BP 121/73
[2019-04-04] MEDS: CEFEPIME HCL 2 GM in D5W MINI-BAG PLUS 50 ML IV SCH ×2 (03:07→13:59)
[2019-04-04] MEDS: PERCOCET 5MG/325MG TAB PO PRN ×2 (05:18→13:29)
[2019-04-04 06:10] VITALS: BP 116/87
[2019-04-04 07:00] LABS: ALBUMIN 2.5 GM/DL (3.2-5.2); ALT/SGPT 35 U/L (12-78); BILIRUBIN,TOTAL 0.3 MG/DL (0.2-1.0); BLOOD UREA NITROGEN 14 MG/DL (7-18); CALCIUM LEVEL 8.9 MG/DL (8.5-10.1); CARBON DIOXIDE LEVEL 26 MEQ/L (21-32); CHLORIDE LEVEL 103 MEQ/L (98-107); CREATININE FOR GFR 0.86 MG/DL (0.70-1.30); GLOMERULAR FILTRATION RATE > 60.0 (>60); GLUCOSE, FASTING 110 MG/DL (70-100); SODIUM LEVEL 137 MEQ/L (136-145); TOTAL PROTEIN 6.5 GM/DL (6.4-8.2)
[2019-04-04] MEDS: RIVAROXABAN 20 MG TAB (XARELTO) PO SCH (10:09)
[2019-04-04] MEDS: ATORVASTATIN 20 MG TAB PO SCH (10:09)
[2019-04-04] MEDS: FOLIC ACID 1 MG TAB PO SCH (10:09)
[2019-04-04] MEDS: DOCUSATE SODIUM 100 MG CAP PO SCH (10:09)
[2019-04-04] MEDS: GABAPENTIN 300 MG CAP PO SCH ×2 (10:10→15:46)
[2019-04-04] MEDS: ASPIRIN 81 MG ENTERIC TAB PO SCH (10:10)
[2019-04-04] MEDS: THIAMINE 100 MG TAB PO SCH (10:10)
[2019-04-04 14:00] VITALS: BP 126/75
[2019-04-04] MEDS ORDERED: KEFL500C17 PO (16:10)
--- NOTE | 2019-04-04 16:54 | IPNPDOC ---
Date Seen The patient was seen on 04/04/19. Progress Note Patient seen and examined postoperative day 4 status post split thickness skin graft with right thigh donor site to right calf medial and lateral fasciotomy wounds. The patient has had wound VAC therapy for 5 days and we removed the wound VAC today to see how he is progressing. His leg is about a third of the size it was when he came to clinic on Sunday and was admitted. I think a lot of this is due to antibiotics, elevation, and offloading. He is being extremely compliant while admitted. On exam, the medial and lateral fasciotomies were exposed by removing the wound VAC carefully. I am extremely pleased with his progress thus far. So far, I would say there is about 80-90% take on the lateral fasciotomy and likely more than that on the medial fasciotomy. No signs of infection are present other than some mild erythema around the superior aspect of the lateral fasciotomy. The fasciotomy sites were carefully cleaned. Adaptic was placed over the skin grafts. Damp gauze dry gauze Kerlix and Coflex were used to dress the leg. The wound VAC was discontinued. At this point, I feel it is safe for the patient to discharge home. I spoke with his home health nurse, Sally, and discussed with her that I would like a dressing change on Sunday with the same Adaptic, damp gauze, dry gauze Kerlix and Coflex. She is agreeable to this plan. The patient will then leave that dressing intact until when he sees Janel MARIN, for his biweekly dressing change since I will be out of town for 2 weeks. We will continue on this schedule until the skin graft is healed. The patient should elevate his right lower extremity above the level of his heart as much as he can during the day to prevent swelling. He should continue his Xarelto. Would recommend Keflex antibiotic for 5 days at discharge. The patient was thoroughly counseled and is agreeable to this plan. All questions were answered. VS, I&O, 24H, Fishbone Vital Signs/I&O Vital Signs Date Time Temp Pulse Resp B/P (MAP) Pulse Ox O2 Delivery O2 Flow Rate FiO2 04/04/19 14:00 98.7 86 17 126/75 (92) 98 I&O- Last 24 Hours up to 6 AM 04/04/19 06:00 Intake Total 770 ml Output Total 2000 ml Balance -1230 ml Laboratory Data 24H LABS Laboratory Tests 2 04/04/19 05:48: Anion Gap 8, Glomerular Filtration Rate > 60.0, Blood Urea Nitrogen 14, Creatinine 0.86, Sodium Level 137, Potassium Level 4.0, Chloride Level 103, Carbon Dioxide Level 26, Calcium Level 8.9, Aspartate Amino Transf (AST/SGOT) 19, Alanine Aminotransferase (ALT/SGPT) 35, Alkaline Phosphatase 67, Total Bilirubin 0.3, Total Protein 6.5, Albumin 2.5L, Albumin/Globulin Ratio 0.63L CBC/BMP Laboratory Tests 04/04/19 05:48 Calcium Level 8.9, Aspartate Amino Transf (AST/SGOT) 19, Alanine Aminotransferase (ALT/SGPT) 35, Alkaline Phosphatase 67, Total Bilirubin 0.3, Total Protein 6.5, Albumin 2.5 L Microbiology Microbiology 04/02/19 Blood Culture - Preliminary, Resulted No Growth after 48 hours. All Specime... ALEJANDRO HARVEY MD Apr 04, 2019 16:54
--- NOTE | 2019-04-09 17:10 | DSES ---
DATE OF ADMISSION: 04/03/2019 DATE OF DISCHARGE: 04/04/2019 PRINCIPAL DIAGNOSIS: Cellulitis right lower leg. SECONDARY DIAGNOSIS: Recent lateral fasciotomy and split thickness skin graft with right thigh donor site, right medial calf prior to admission. HISTORY: Karthik Pride had a recent fasciotomy and skin graft. He is admitted with cellulitis right lower leg. Details on history and physical for admission. HOSPITAL COURSE: Patient was admitted to a medical bed, was treated with IV cefepime. Was seen in consultation by Dr. Hardy from vascular surgery. Patient had been status post right popliteal thrombolysis on 02/24. She saw the patient. I appreciate her input. On day of discharge she thought the patient could be discharged without the wound Vac on a by mouth (p.o.) antibiotic, Keflex and local treatment. SIGNIFICANT LABS: White count day before discharge 10.3, hemoglobin 10.9, platelets 600. Sodium 137, potassium 4, BUN 14, creatinine 0.8, glucose 110. The cultures showed no growth. DISPOSITION: The patient was discharged home on 04/04 with followup with primary provider in one week. Activity as tolerated. MEDICATIONS: Keflex 500 mg twice a day for five more days. Maintain amlodipine 5 mg daily, aspirin 81 mg daily, atorvastatin 20 mg daily, folic acid 1 mg daily, gabapentin 300 mg three times a day, Claritin 10 mg daily, omeprazole 40 mg daily, oxycodone/acetaminophen 5/325 every 6 hours as needed, Xarelto 20 mg daily, thiamine at 10 mg daily. Followup with vascular per Dr. Hardy. Activity as tolerated. Elevate leg as necessary.
== END 2019-04-04 17:20 | disposition home health service (06) | DRG 721 ==
LOC: M MS5PR 10:41 → INTOOBSV 10:41 → M MS5PR 11:33 → OBSVTOIN 04-03 17:20
PROVIDERS: ADMIT Family Medicine; ATTEND Family Medicine
DX: T81.49XA Infection following a procedure, other surgical site, initial encounter (principal); I74.3 Embolism and thrombosis of arteries of the lower extremities; G62.9 Polyneuropathy, unspecified; F10.20 Alcohol dependence, uncomplicated; I10 Essential (primary) hypertension; K21.9 Gastro-esophageal reflux disease without esophagitis; Z79.82 Long term (current) use of aspirin; Z79.899 Other long term (current) drug therapy; E78.5 Hyperlipidemia, unspecified; Z87.891 Personal history of nicotine dependence; Y84.8 Other medical procedures as the cause of abnormal reaction of the patient, or of later complication, without mention of misadventure at the time of the procedure

== ENCOUNTER → 2019-05-27 | Outpatient (CLI) | payer OTHER ==
[~2019-05-27] MED LIST changes: +ACET-907 PO; +ECOT81TA5 PO; +KEFL500C17 PO; +OMEP20CA4 PO; +OXYC1TAB23 PO
--- NOTE | 2019-05-27 11:41 | REP ---
Bilateral lower extremity arterial Doppler ultrasound: History: Intermittent claudication. Atherosclerosis. The patient status post fasciotomy in the right calf February 2019. Findings: Ankle brachial indices are normal measured at 1.1 on the right and 1.1 on the left. Moderate atherosclerotic plaquing is visualized bilaterally. Monophasic abnormal waveforms are noted in the superficial femoral, popliteal and tibial arteries on the right. Normal waveforms are noted on the left. Reverse flow is noted in the distal posterior tibial artery on the right and collaterals are seen in the distal calf on the right. No occlusion or stenosis is identified. Velocity chart right lower extremity arteries: CF A 111 cm/S Profunda 80 Proximal SFA 105 Mid SFA 94 Distal SFA 63 Popliteal 52 Proximal AT A 52 Tibioperoneal trunk 59 Proximal ICE CARVER 52 Distal ICE CARVER reversed Distal AT A 105 Velocity chart left lower extremity arteries: CF A 65 cm/S Profunda 54 Proximal SFA 110 Mid SFA 79 Distal SFA 53 Popliteal 62 Proximal AT A 34 Tibioperoneal trunk 51 Proximal ICE CARVER 61 Distal ICE CARVER 62 Distal AT A 62 Electronically Signed by Stephen Collado MD 05/27/2019 11:32 A
== END ==
LOC: M RAD 08:52
PROVIDERS: ATTEND Physician Assistant
DX: I70.213 Atherosclerosis of native arteries of extremities with intermittent claudication, bilateral legs (principal)

== ENCOUNTER → 2019-07-15 | Outpatient (REF) | payer OTHER ==
[2019-07-15 18:27] LABS: APPEARANCE, URINE CLEAR (CLEAR); BACTERIA, URINE AUTO NEGATIVE (NEGATIVE); BILIRUBIN, URINE AUTO NEGATIVE (NEGATIVE); BLOOD, URINE BLOOD NEGATIVE (NEGATIVE); COLOR, URINE STRAW (YELLOW); GLUCOSE, URINE (UA) AUTO NEGATIVE (NEGATIVE); KETONE, URINE AUTO NEGATIVE (NEGATIVE); LEUKOCYTE ESTERASE, URINE AUTO NEGATIVE (NEGATIVE); NITRITE, URINE AUTO NEGATIVE (NEGATIVE); PROTEIN, URINE AUTO NEGATIVE (NEGATIVE); RBC, URINE AUTO 0 /HPF (0-3); SPECIFIC GRAVITY URINE AUTO 1.001 (1.002-1.035); SQUAMOUS EPITHELIAL CELL UR AU 0 /HPF (0-6); UROBILINOGEN, URINE AUTO 0.2 mg/dL (0.0-2.0); WBC, URINE AUTO 0 /HPF (0-3)
== END ==
LOC: M SMT 17:13
PROVIDERS: ATTEND Nurse Practitioner Family
DX: R39.11 Hesitancy of micturition (principal)

== ENCOUNTER 2019-08-04 17:12 | Emergency (ER) | payer OTHER ==
[~2019-08-04] VITALS: Ht 162.6 cm; Wt 89.5 kg
[~2019-08-04 17:12] MED LIST changes: -OMEP40CA2 PO; +OMEP40CA97 PO
[2019-08-04] MEDS ORDERED: ELIQ5TAB PO (17:28)
[2019-08-04] MEDS ORDERED: AMLO25TA PO (17:28)
[2019-08-04] MEDS ORDERED: methylPREDNISolone INJ 125 MG/2 ML VIAL (J2930) IV ONE (17:30)
[2019-08-04] MEDS ORDERED: FAMOTIDINE INJ 20MG/2ML VIAL (S0028) IVP ONE (17:30)
[2019-08-04] MEDS ORDERED: diphenhydrAMINE INJ 50MG/ML VIAL (J1200) IV ONE (17:30)
[2019-08-04] MEDS ORDERED: NS 1,000 ML IV ONE (17:30)
[2019-08-04] MEDS ORDERED: PRIL20TA2 PO (19:15)
[2019-08-04] MEDS ORDERED: PRED20TA PO (19:15)
[2019-08-04] MEDS ORDERED: BENA25CA4 PO (19:15)
[2019-08-04 20:10] VITALS: BP 134/93
[2019-08-05] MEDS ORDERED: PEPC1TAB5 PO (13:45)
== END 2019-08-04 20:11 | disposition home or self-care (01) ==
LOC: EDBD 17:12 → M ED 17:12
DX: R21 Rash and other nonspecific skin eruption (principal); T78.40XA Allergy, unspecified, initial encounter; X58.XXXA Exposure to other specified factors, initial encounter; Y92.89 Other specified places as the place of occurrence of the external cause; Z79.899 Other long term (current) drug therapy; Z79.82 Long term (current) use of aspirin; Z79.01 Long term (current) use of anticoagulants; Z87.891 Personal history of nicotine dependence
CPT/HCPCS: 94760; 96361; 96374; 96375; 99284; J1200; J2930

== ENCOUNTER 2019-08-05 11:14 | Emergency (ER) | payer OTHER ==
[~2019-08-05] VITALS: Ht 162.6 cm; Wt 89.2 kg
[~2019-08-05 11:14] MED LIST changes: +AMLO25TA PO; +BENA25CA4 PO; +ELIQ5TAB PO; +PRED20TA PO; +PRIL20TA2 PO
[2019-08-05] MEDS ORDERED: FAMOTIDINE INJ 20MG/2ML VIAL (S0028) IVP ONE (11:45)
[2019-08-05] MEDS ORDERED: diphenhydrAMINE INJ 50MG/ML VIAL (J1200) IV ONE (11:45)
[2019-08-05] MEDS ORDERED: methylPREDNISolone INJ 125 MG/2 ML VIAL (J2930) IV ONE (11:45)
[2019-08-05 12:53] LABS: BASO % 0.3 % (0.0-1.0); HEMATOCRIT 42.6 % (42.0-52.0); HEMOGLOBIN 14.3 g/dl (13.5-17.5); LYMPH # 1.1 10^3/uL (1.5-5.0); LYMPH % 15.9 % (24.0-44.0); MEAN CORPUSCULAR HEMOGLOBIN 29.5 pg (27.0-33.0); MEAN CORPUSCULAR HGB CONC 33.6 g/dl (32.0-36.5); MONO # 0.6 10^3/uL (0.0-0.8); MONO % 8.2 % (0.0-5.0); NEUTROPHILS # 5.4 10^3/uL (1.5-8.5); NEUTROPHILS % 75.5 % (36.0-66.0); PLATELET COUNT, AUTOMATED 359 10^3/uL (150-450); RED BLOOD COUNT 4.84 10^6/uL (4.30-6.10); WHITE BLOOD COUNT 7.2 10^3/uL (4.0-10.0)
[2019-08-05 13:24] LABS: BLOOD UREA NITROGEN 17 MG/DL (7-18); CALCIUM LEVEL 9.8 MG/DL (8.5-10.1); CARBON DIOXIDE LEVEL 26 MEQ/L (21-32); CHLORIDE LEVEL 104 MEQ/L (98-107); CREATININE FOR GFR 0.95 MG/DL (0.70-1.30); GLOMERULAR FILTRATION RATE > 60.0 (>60); GLUCOSE, FASTING 104 MG/DL (70-100); POTASSIUM SERUM 4.2 MEQ/L (3.5-5.1); SODIUM LEVEL 138 MEQ/L (136-145)
[2019-08-05 13:45] VITALS: BP 136/84
[2019-08-05] MEDS ORDERED: PEPC1TAB5 PO (13:45)
== END 2019-08-05 13:57 | disposition home or self-care (01) ==
LOC: M ED 11:14
DX: L50.9 Urticaria, unspecified (principal); R22.0 Localized swelling, mass and lump, head; T50.995A Adverse effect of other drugs, medicaments and biological substances, initial encounter; X58.XXXA Exposure to other specified factors, initial encounter; Y92.89 Other specified places as the place of occurrence of the external cause; I10 Essential (primary) hypertension; F33.9 Major depressive disorder, recurrent, unspecified; F41.9 Anxiety disorder, unspecified; E78.9 Disorder of lipoprotein metabolism, unspecified; Z79.899 Other long term (current) drug therapy; Z79.01 Long term (current) use of anticoagulants; Z87.891 Personal history of nicotine dependence
CPT/HCPCS: 80048; 85025; 93041; 94760; 96374; 96375; 99285; J1200; J2930

== ENCOUNTER → 2019-12-01 | Outpatient (CLI) | payer OTHER ==
[~2019-12-01] MED LIST changes: +OMEP1CAP73 PO; -OMEP20CA4 PO; +PEPC1TAB5 PO
--- NOTE | 2019-12-01 10:59 | REP ---
Unilateral right lower extremity arterial Doppler ultrasound: History: Claudication. Atherosclerosis. Surgical aftercare status post thrombolysis and angioplasty right popliteal. Findings: Ankle brachial index on the right is normal measured at 1.1. Normal triphasic waveforms are noted throughout the right lower extremity arteries with the exception of the distal posterior tibial artery which shows biphasic wave form. This is revascularized flow beyond a distal GROCERY SUPERVISOR occlusion. Right lower extremity arterial Doppler velocity chart: Right CF A 105 cm/S Profunda 39 Proximal SFA 62 Mid SFA 68 Distal SFA 69 Popliteal 35 Proximal AT A 59 Tibioperoneal trunk 41 Proximal GROCERY SUPERVISOR 18 Distal GROCERY SUPERVISOR 12 revascularized Distal AT A 85 Electronically Signed by Stephen Collado MD 12/01/2019 10:50 A
== END ==
LOC: M RAD 09:07
PROVIDERS: ATTEND Surgery Vascular Surgery
DX: Z48.89 Encounter for other specified surgical aftercare (principal); I70.201 Unspecified atherosclerosis of native arteries of extremities, right leg

== ENCOUNTER → 2019-12-23 | Outpatient (REF) | payer OTHER ==
[2019-12-23 11:40] LABS: BASO # 0.1 10^3/uL (0.0-0.2); BASO % 0.9 % (0.0-1.0); EOS # 0.2 10^3/uL (0.0-0.5); EOS % 3.6 % (0.0-3.0); HEMATOCRIT 46.1 % (42.0-52.0); HEMOGLOBIN 15.1 g/dl (13.5-17.5); LYMPH # 2.7 10^3/uL (1.5-5.0); LYMPH % 40.5 % (24.0-44.0); MEAN CORPUSCULAR HEMOGLOBIN 30.1 pg (27.0-33.0); MEAN CORPUSCULAR HGB CONC 32.8 g/dl (32.0-36.5); MONO # 0.5 10^3/uL (0.0-0.8); MONO % 7.4 % (0.0-5.0); NEUTROPHILS # 3.1 10^3/uL (1.5-8.5); NEUTROPHILS % 47.3 % (36.0-66.0); PLATELET COUNT, AUTOMATED 388 10^3/uL (150-450); RED BLOOD COUNT 5.01 10^6/uL (4.30-6.10); WHITE BLOOD COUNT 6.6 10^3/uL (4.0-10.0)
[2019-12-23 11:41] LABS: ALBUMIN 3.8 GM/DL (3.2-5.2); ALT/SGPT 49 U/L (12-78); BILIRUBIN,TOTAL 0.5 MG/DL (0.2-1.0); BLOOD UREA NITROGEN 10 MG/DL (7-18); CALCIUM LEVEL 9.2 MG/DL (8.5-10.1); CARBON DIOXIDE LEVEL 31 MEQ/L (21-32); CHLORIDE LEVEL 107 MEQ/L (98-107); CREATININE FOR GFR 0.93 MG/DL (0.70-1.30); GLOMERULAR FILTRATION RATE > 60.0 (>60); GLUCOSE, FASTING 96 MG/DL (70-100); POTASSIUM SERUM 4.3 MEQ/L (3.5-5.1); SODIUM LEVEL 141 MEQ/L (136-145); TOTAL PROTEIN 6.8 GM/DL (6.4-8.2)
== END ==
LOC: M SFHCCLAY 07:02
PROVIDERS: ATTEND Nurse Practitioner Family
DX: T78.3XXD Angioneurotic edema, subsequent encounter (principal)

== ENCOUNTER → 2020-05-24 | Outpatient (CLI) | payer OTHER ==
[~2020-05-24] MED LIST changes: -AMLO10TA5 PO; +AMLO1TAB25 PO
--- NOTE | 2020-07-06 10:51 | REP ---
BILATERAL LOWER EXTREMITY ULTRASOUND: HISTORY: Claudication. FINDINGS: Real time ultrasound evaluation and duplex Doppler interrogation of bilateral lower extremity arterial systems is performed. THAIS bilaterally is 1.0. There is minimal scattered plaque bilaterally. Triphasic wave forms are seen diffusely bilaterally. There is apparent stenosis of the distal left posterior tibial artery. The distal right posterior tibial artery is not visualized. VELOCITY CHART PSV RIGHT (cm/s) PSV LEFT (cm/s) Common femoral artery 112.2 118.1 Profunda 74.6 72.0 Proximal SFA 83.2 110.5 Mid-SFA 102.7 91.3 Distal SFA 85.3 75.8 Popliteal 56.8 48.8 Proximal TAYLOR 59.9 45.0 Tibioperoneal trunk 72.0 40.2 Proximal NANOTECHNOLOGIST 39.3 24.6 Distal NANOTECHNOLOGIST Not seen 97.8 Distal TAYLOR 106.7 74.4 MTDD
== END ==
LOC: M RAD 09:19
PROVIDERS: ATTEND Surgery Vascular Surgery
DX: I70.203 Unspecified atherosclerosis of native arteries of extremities, bilateral legs (principal)

== ENCOUNTER → 2020-11-29 | Outpatient (CLI) | payer OTHER ==
[~2020-11-29] MED LIST changes: +GABA-282 PO; -GABA-843 PO; -LISI-538 PO; +LISI20TA33 PO
--- NOTE | 2020-11-29 08:40 | REP ---
INDICATION: UNSP ART CATHERINE ART OF EXT RIGHT LEG. COMPARISON: Comparison study May 24, 2020.. TECHNIQUE: Bilateral lower extremity arterial Doppler ultrasound. FINDINGS: Ankle brachial indices are 1.2 on the right and 1.0 on the left. There is moderate bilateral plaquing right a little more advanced than left. Monophasic waveforms are noted in the right distal posterior tibial and anterior tibial artery. Reversed flow is seen in the right posterior tibial artery distally. Mild to moderate narrowing is noted in the right proximal superficial femoral artery. A mid to distal TAR BOILER occlusion is noted on the right. Right lower extremity arterial Doppler velocity chart: Right CORE WINDING OPERATOR PSV 117/93 cm/S Profundal 114 Proximal SFA 107 Mid SFA 92 Distal SFA 96 Popliteal 63/78 Proximal TAYLOR 105 Tibial-peroneal trunk 51 Proximal TAR BOILER 35 Distal TAR BOILER reversed flow 34 Distal TAYLOR 125 Left lower extremity arterial Doppler velocity chart: Left CORE WINDING OPERATOR PSV 117 cm/S Profundal 85 Proximal SFA 110 Mid SFA 100 Distal SFA 95 Popliteal 67/76 Proximal TAYLOR 57 Tibial-peroneal trunk 69 Proximal TAR BOILER 86 Distal TAR BOILER 74 Distal TAYLOR 73 IMPRESSION: Moderate atherosclerotic plaquing. Mid to distal TAR BOILER occlusion on the right with revascularize flow. <Electronically signed by Alonso Collado > 11/29/20 0814
== END ==
LOC: M RAD 07:07
PROVIDERS: ATTEND Surgery Vascular Surgery
DX: I70.201 Unspecified atherosclerosis of native arteries of extremities, right leg (principal)

== ENCOUNTER → 2020-12-09 | Outpatient (REF) | payer MEDICAID, OTHER ==
[2020-12-09 11:59] LABS: BASO # 0.1 10^3/uL (0.0-0.2); BASO % 0.7 % (0.0-1.0); EOS # 0.1 10^3/uL (0.0-0.5); HEMATOCRIT 44.8 % (42.0-52.0); HEMOGLOBIN 14.9 g/dl (13.5-17.5); LYMPH # 2.5 10^3/uL (1.5-5.0); LYMPH % 37.6 % (24.0-44.0); MEAN CORPUSCULAR HEMOGLOBIN 29.8 pg (27.0-33.0); MEAN CORPUSCULAR HGB CONC 33.3 g/dl (32.0-36.5); MEAN CORPUSCULAR VOLUME 89.6 fl (80.0-96.0); MONO # 0.5 10^3/uL (0.0-0.8); MONO % 7.7 % (2.0-8.0); NEUTROPHILS # 3.5 10^3/uL (1.5-8.5); NEUTROPHILS % 52.9 % (36.0-66.0); PLATELET COUNT, AUTOMATED 328 10^3/uL (150-450); WHITE BLOOD COUNT 6.7 10^3/uL (4.0-10.0)
[2020-12-09 12:28] LABS: ALBUMIN 4.2 GM/DL (3.2-5.2); ALT/SGPT 36 U/L (12-78); BILIRUBIN,TOTAL 0.3 MG/DL (0.2-1.0); BLOOD UREA NITROGEN 17 MG/DL (7-18); CALCIUM LEVEL 9.5 MG/DL (8.5-10.1); CARBON DIOXIDE LEVEL 28 MEQ/L (21-32); CHLORIDE LEVEL 104 MEQ/L (98-107); CHOLESTEROL LEVEL 161 MG/DL (<200); CHOLESTEROL RISK RATIO 4.236 (<5); CREATININE FOR GFR 1.02 MG/DL (0.70-1.30); FREE T4 1.14 NG/DL (0.76-1.46); GLOMERULAR FILTRATION RATE > 60.0 (>60); GLUCOSE, FASTING 109 MG/DL (70-100); HDL CHOLESTEROL 38 MG/DL (>40); LDL CHOLESTEROL 105 MG/DL (<100); NON-HDL-C 123 MG/DL; POTASSIUM SERUM 4.5 MEQ/L (3.5-5.1); SODIUM LEVEL 137 MEQ/L (136-145); TOTAL PROTEIN 7.3 GM/DL (6.4-8.2); TRIGLYCERIDES LEVEL 91 MG/DL (<150)
== END ==
LOC: M SFHCCLAY 08:05
PROVIDERS: ATTEND Nurse Practitioner Family
DX: G47.00 Insomnia, unspecified (principal); F41.0 Panic disorder [episodic paroxysmal anxiety]; F41.8 Other specified anxiety disorders; I10 Essential (primary) hypertension

== ENCOUNTER → 2020-12-17 | Outpatient (REF) | payer OTHER ==
[~2020-12-17] MED LIST changes: +ASPI-569 PO; -ASPI81TAEC PO; -PEG1POW PO; +POLY17PO18 PO
[2020-12-17 11:55] LABS: FOLLICLE STIMULATING HORMONE 7.1 mIU/mL (1.4-18.1); LUTEINIZING HORMONE 2.1 mIU/mL (1.5-9.3)
== END ==
LOC: M LABSMT 07:53
PROVIDERS: ATTEND Nurse Practitioner Family
DX: R68.82 Decreased libido (principal)

== ENCOUNTER → 2021-03-21 | Outpatient (CLI) | payer OTHER ==
--- NOTE | 2021-03-21 22:57 | REP ---
INDICATION: ATH SCLO OF LOWER EXT WITH INTER CLAUDICATION COMPARISON: None. TECHNIQUE: Real time calvillo scale and color Doppler evaluation of the bilateral lower extremity arterial vasculature using linear high frequency transducer. FINDINGS: Right lower extremity THAIS equals 1.2. Moderate amounts of partially calcified atheromatous plaquing is appreciated throughout the right lower extremity with evidence for occlusion of the distal posterior tibial artery with subsequent revascularization. Right lower extremity demonstrates triphasic arterial wave patterns with the exception of monophasic wave patterns at the anterior tibial artery and distal posterior tibial artery. Left lower extremity THAIS equals 1.3. Moderate amount of partially calcified atheromatous plaquing is appreciated throughout the left lower extremity without evidence for significant stenosis or occlusion. Left lower extremity demonstrates triphasic arterial wave patterns with the exception of monophasic wave patterns at the anterior tibial artery. Peak systolic velocities (cm/sec) Common femoral artery: Right 103; Left 95 Profunda femoris: Right 89; Left 56 SFA (proximal): Right 97; Left 118 SFA (mid): Right 102; Left 99 SFA (distal): Right 91; Left 93 Popliteal artery: Right 82; Left 90 TAYLOR (prox.): Right 108; Left 75 Tibioperoneal trunk: Right 57; Left 47 SUPERVISORY AIDE (prox.): Right 42; Left 69 SUPERVISORY AIDE (distal): Right 26; Left 77 TAYLOR (distal): Right 99; Left 75 IMPRESSION: Atheromatous changes with limited findings as described above. <Electronically signed by Devaughn Zabala > 03/21/21 0758
== END ==
LOC: M RAD 11:22
PROVIDERS: ATTEND Physician Assistant
DX: I70.203 Unspecified atherosclerosis of native arteries of extremities, bilateral legs (principal)

== ENCOUNTER → 2021-05-17 | Outpatient (CLI) | payer OTHER ==
[~2021-05-17] MED LIST changes: +OMEP-173 PO; -OMEP-218 PO; +OMEP40CA4 PO; -OMEP40CA97 PO
== END ==
LOC: M SOG 08:43
PROVIDERS: ATTEND Orthopaedic Surgery Sports Medicine
DX: M75.42 Impingement syndrome of left shoulder (principal); M75.41 Impingement syndrome of right shoulder; M65.4 Radial styloid tenosynovitis [de Quervain]

== ENCOUNTER → 2021-09-20 | Outpatient (CLI) | payer OTHER ==
[~2021-09-20] MED LIST changes: -OMEP-173 PO; +OMEP-218 PO
--- NOTE | 2021-09-20 09:58 | REP ---
INDICATION: IMPINGEMENT SYNDROME OF LT SHOULDER. COMPARISON: Radiographs 05/17/2021. TECHNIQUE: Coronal oblique T1, T2 fat sat, sagittal oblique T2 fat sat, axial T2 fat sat, gradient echo. FINDINGS: Rotator cuff: There is moderate tendinopathy/tendinitis of the supraspinatus tendon with partial undersurface tearing. There are also partial undersurface tears of the infraspinatus tendon with fluid tracking centrally along the undersurface of the infraspinatus muscle. Acromioclavicular joint: There are mild hypertrophic degenerative changes of the acromioclavicular joint with mild downward sloping of the acromion. Acromion: Type 2 Biceps Tendon: In bicipital groove, no tenosynovitis. Hill Sach's deformity: None. Deltoid muscle: No abnormal signal. Biceps labral complex: I suspect a tear of the biceps labral complex. Labrum: I suspect a SLAP tear. I suspect a tear of the anterior labrum. 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 Bone marrow: There is very mild subcortical cystic change/edema in the superolateral humeral head. Joint fluid: No effusion. There is a tiny amount of subacromial fluid. There is a 10 x 5 mm calcified joint body just inferior to the glenohumeral joint. IMPRESSION: There is moderate tendinopathy/tendinitis of the supraspinatus tendon with partial undersurface tearing. There are also partial undersurface tears of the infraspinatus tendon with fluid tracking centrally along the undersurface of the infraspinatus muscle. Mild hypertrophic degenerative changes acromioclavicular joint, with a type 2 acromion which is downward sloping. I suspect a tear of the biceps labral complex, a SLAP tear and a tear of the anterior labrum. Further evaluation may be made with MR arthrography to confirm these findings. Moderately severe chondromalacia anterior glenoid. There is a 10 x 5 mm calcified joint body just inferior to the glenohumeral joint. <Electronically signed by William Wright > 09/20/21 [id number]
== END ==
LOC: M PLAIMG 08:01
PROVIDERS: ATTEND Orthopaedic Surgery Sports Medicine
DX: M75.42 Impingement syndrome of left shoulder (principal)

== ENCOUNTER → 2021-10-26 | Outpatient (CLI) | payer OTHER ==
[~2021-10-26] MED LIST changes: +ISOVUE-300 61% 50ML VIAL As Ordered ONE; +LIDOCAINE 1% MDV 20ML VIAL As Ordered ONE; +PROHANCE 279.3MG/ML 5ML VIAL As Ordered ONE
== END ==
LOC: M RADPRO 06:53
PROVIDERS: ATTEND Orthopaedic Surgery Sports Medicine
DX: R93.7 Abnormal findings on diagnostic imaging of other parts of musculoskeletal system (principal); S43.431D Superior glenoid labrum lesion of right shoulder, subsequent encounter
CPT/HCPCS: 23350; 73223; 77002; A9576; Q9967

== ENCOUNTER → 2022-01-25 | Outpatient (CLI) | payer OTHER ==
[~2022-01-25] MED LIST changes: -ISOVUE-300 61% 50ML VIAL As Ordered ONE; -LIDOCAINE 1% MDV 20ML VIAL As Ordered ONE; +OMEP-173 PO; -OMEP-218 PO; +PRAD150C6 PO; -PROHANCE 279.3MG/ML 5ML VIAL As Ordered ONE
== END ==
LOC: M LABSMTC 10:36
PROVIDERS: ATTEND Anesthesiology
DX: Z01.818 Encounter for other preprocedural examination (principal); Z11.52 Encounter for screening for COVID-19

== ENCOUNTER 2022-01-30 10:07 | Day surgery (SDC) | payer OTHER ==
[~2022-01-30] VITALS: Ht 162.6 cm; Wt 93.9 kg
[~2022-01-30 10:07] MED LIST changes: +LIDOCAINE 1% MDV 20ML VIAL SQ PRN; +LR 1,000 ML IV ONE; +ceFAZolin SOD 2 GM in IV 1 EA IV ONE; +oxyCODONE 5MG TAB PO ONE
[2022-01-30] MEDS ORDERED: ROPIvacaine 0.5% 30ML INJECTION (J2795 PER 1MG) XX ONE (12:05)
[2022-01-30] MEDS ORDERED: LIDOCAINE 1% MDV 20ML VIAL XX ONE (12:05)
[2022-01-30] MEDS ORDERED: dexameTHASONE 10MG/1ML VIAL PRES.FREE (J1100 PER 1MG) XX ONE (12:10)
[2022-01-30] MEDS ORDERED: EPINEPHrine 1MG/ML INJ 30ML MD-VIAL As Ordered ONE (12:22)
[2022-01-30] MEDS ORDERED: LIDOCAINE 1% SDV 30ML VIAL As Ordered ONE (12:31)
[2022-01-30] MEDS: fentaNYL 100 MCG/2 ML INJECTION IV PRN ×2 (12:46→12:53)
[2022-01-30] MEDS: MIDAZOLAM INJ 2MG/2ML VIAL (J2250 PER 1MG) IV PRN ×2 (12:47→12:53)
[2022-01-30] MEDS ORDERED: propofoL 200 MG/20 ML VIAL As Ordered ONE (13:32)
[2022-01-30] MEDS ORDERED: MIDAZOLAM INJ 2MG/2ML VIAL (J2250 PER 1MG) As Ordered ONE (13:32)
[2022-01-30] MEDS ORDERED: LIDOCAINE 2% 100MG/5ML SDV (FOR ANES.) As Ordered ONE (13:32)
[2022-01-30] MEDS ORDERED: ROCURONIUM BROMIDE 50 MG/5 ML VIAL As Ordered ONE (13:32)
[2022-01-30] MEDS ORDERED: ONDANSETRON 4MG/2ML VIAL As Ordered ONE (13:32)
[2022-01-30] MEDS ORDERED: dexameTHASONE 4 MG/ML 1ML VIAL (J1100 PER 1MG) As Ordered ONE (13:32)
[2022-01-30] MEDS ORDERED: fentaNYL 100 MCG/2 ML INJECTION As Ordered ONE (13:32)
[2022-01-30] MEDS ORDERED: PHENYLephrine 500MCG 5ML (100MCG/ML) SYRINGE As Ordered ONE (13:32)
[2022-01-30] MEDS ORDERED: PHENYLEPHRINE 10MG/ML 1ML VIAL (J2370 PER 1) As Ordered ONE (13:39)
[2022-01-30] MEDS ORDERED: SUGAMMADEX SODIUM 500 MG/5 ML VIAL (BRIDION) As Ordered ONE (14:54)
[2022-01-30] MEDS ORDERED: OXYC1TAB23 PO (15:42)
[2022-01-30] MEDS ORDERED: KETOROLAC 60MG 2ML VIAL As Ordered ONE (15:51)
[2022-01-30] MEDS ORDERED: ACETAMINOPHEN 1000MG 100ML IV BTL (OFIRMEV) (J0131 PER 10MG) As Ordered ONE (15:51)
[2022-01-30] MEDS ORDERED: ONDANSETRON 4MG/2ML VIAL IV PRN (16:05)
[2022-01-30] MEDS ORDERED: fentaNYL 100 MCG/2 ML INJECTION IV PRN (16:05)
[2022-01-30] MEDS ORDERED: LR 1,000 ML IV SCH ×2 (16:05→16:15)
[2022-01-30] MEDS: oxyCODONE 5MG TAB PO PRN ×2 (16:23→16:56)
[2022-01-30 18:20] VITALS: BP 134/82
[2022-01-31] MEDS ORDERED: ASPIRIN 81MG ENTERIC TABLET PO SCH (09:00)
[2022-01-31] MEDS ORDERED: CelecoXIB (CeleBREX) 100 MG CAP PO SCH (09:00)
== END 2022-01-30 18:32 | disposition home or self-care (01) ==
LOC: M SDC 10:07
PROVIDERS: ATTEND Orthopaedic Surgery
DX: M75.111 Incomplete rotator cuff tear or rupture of right shoulder, not specified as traumatic (principal); M75.41 Impingement syndrome of right shoulder; M19.011 Primary osteoarthritis, right shoulder; I10 Essential (primary) hypertension; E78.00 Pure hypercholesterolemia, unspecified; K21.9 Gastro-esophageal reflux disease without esophagitis; F41.9 Anxiety disorder, unspecified; F32.A Depression, unspecified; M54.9 Dorsalgia, unspecified; Z86.718 Personal history of other venous thrombosis and embolism; Z79.899 Other long term (current) drug therapy; Z79.82 Long term (current) use of aspirin; Z79.01 Long term (current) use of anticoagulants
CPT/HCPCS: 23430; 29807; 29824; 29826; 64415; 88304; C1713; J0131; J0171; J0690; J1100; J1885; J2250; J2370; J2405; J3010

== ENCOUNTER → 2022-02-13 | Outpatient (CLI) | payer OTHER ==
[~2022-02-13] MED LIST changes: -LIDOCAINE 1% MDV 20ML VIAL SQ PRN; -LR 1,000 ML IV ONE; -ceFAZolin SOD 2 GM in IV 1 EA IV ONE; -oxyCODONE 5MG TAB PO ONE
== END ==
LOC: M SOG 09:05
PROVIDERS: ATTEND Orthopaedic Surgery
DX: M75.41 Impingement syndrome of right shoulder (principal)

== ENCOUNTER → 2022-09-04 | Outpatient (REF) | payer OTHER ==
[2022-09-04 17:53] LABS: CHOLESTEROL RISK RATIO 3.23 (<5); HDL CHOLESTEROL 59.3 MG/DL (>40); LDL CHOLESTEROL 99.1 MG/DL (<100)
== END ==
LOC: M LAB REF 16:47
PROVIDERS: ATTEND Nurse Practitioner Family
DX: E78.5 Hyperlipidemia, unspecified (principal)

== ENCOUNTER → 2022-09-19 | Outpatient (CLI) | payer OTHER | LOC: M SOG 07:54 | PROVIDERS: ATTEND Orthopaedic Surgery | DX: S43.431D Superior glenoid labrum lesion of right shoulder, subsequent encounter (principal); W18.30XD Fall on same level, unspecified, subsequent encounter; Y92.009 Unspecified place in unspecified non-institutional (private) residence as the place of occurrence of the external cause ==

== ENCOUNTER 2023-01-22 07:36 | Day surgery (SDC) | payer OTHER ==
[~2023-01-22] VITALS: Ht 162.6 cm; Wt 104.1 kg
[~2023-01-22 07:36] MED LIST changes: +D3 S20002 PO; +LIDOCAINE 2% 100MG/5ML SDV (FOR ANES.) As Ordered ONE; +NS 1,000 ML IV ONE; +ROSU10TA6 PO; +propofoL 200 MG/20 ML VIAL As Ordered ONE
[2023-01-22] MEDS ORDERED: propofoL 200 MG/20 ML VIAL As Ordered ONE (09:23)
[2023-01-22 09:30] VITALS: BP 134/83
== END 2023-01-22 12:10 | disposition home or self-care (01) ==
LOC: M OPP 07:36
PROVIDERS: ATTEND Internal Medicine Gastroenterology
DX: Z12.11 Encounter for screening for malignant neoplasm of colon (principal); Z86.010 Personal history of colon polyps; D12.6 Benign neoplasm of colon, unspecified; K64.4 Residual hemorrhoidal skin tags; K64.8 Other hemorrhoids; K57.30 Diverticulosis of large intestine without perforation or abscess without bleeding; Z87.891 Personal history of nicotine dependence; Z86.718 Personal history of other venous thrombosis and embolism; Z79.01 Long term (current) use of anticoagulants; Z79.02 Long term (current) use of antithrombotics/antiplatelets; Z79.899 Other long term (current) drug therapy; Z80.1 Family history of malignant neoplasm of trachea, bronchus and lung; Z80.3 Family history of malignant neoplasm of breast

== ENCOUNTER → 2023-05-01 | Outpatient (CLI) | payer OTHER ==
[~2023-05-01] MED LIST changes: -LIDOCAINE 2% 100MG/5ML SDV (FOR ANES.) As Ordered ONE; -NS 1,000 ML IV ONE; +SENN-111 PO; -SENN18TA PO; -propofoL 200 MG/20 ML VIAL As Ordered ONE
== END ==
LOC: M PLALAB 09:01
PROVIDERS: ATTEND Internal Medicine Hematology
DX: I82.511 Chronic embolism and thrombosis of right femoral vein (principal)

== ENCOUNTER → 2023-06-12 | Outpatient (REF) | payer OTHER ==
[2023-06-12 12:48] LABS: BASO # 0.1 10^3/uL (0.0-0.2); EOS # 0.1 10^3/uL (0.0-0.5); EOS % 1.8 % (0.0-3.0); HEMATOCRIT 43.5 % (42.0-52.0); HEMOGLOBIN 14.4 g/dl (13.5-17.5); LYMPH # 2.1 10^3/uL (1.5-5.0); LYMPH % 41.4 % (24.0-44.0); MEAN CORPUSCULAR HGB CONC 33.1 g/dl (32.0-36.5); MEAN CORPUSCULAR VOLUME 90.6 fl (80.0-96.0); MONO # 0.5 10^3/uL (0.0-0.8); NEUTROPHILS # 2.3 10^3/uL (1.5-8.5); NEUTROPHILS % 45.2 % (36.0-66.0); PLATELET COUNT, AUTOMATED 362 10^3/uL (150-450); WHITE BLOOD COUNT 5.1 10^3/uL (4.0-10.0)
[2023-06-12 12:56] LABS: INR 1.02; PROTHROMBIN TIME 13.1 SECONDS (12.5-14.5)
[2023-06-12 13:04] LABS: TOTAL 25(OH) VITAMIN D 34.7 NG/ML (20.0-100.0)
[2023-06-12 13:05] LABS: ALKALINE PHOSPHATASE 57 U/L (46-116); ALT/SGPT 45 U/L (7.0-40); AST/SGOT 17 U/L (<34); BILIRUBIN,TOTAL 0.6 MG/DL (0.3-1.2); BLOOD UREA NITROGEN 15 MG/DL (9-23); CALCIUM LEVEL 9.6 MG/DL (8.5-10.1); CARBON DIOXIDE LEVEL 27 MMOL/L (20-31); CHLORIDE LEVEL 100 MMOL/L (98-107); CHOLESTEROL LEVEL 164 MG/DL (<200); CHOLESTEROL RISK RATIO 4.54 (<5); CREATININE FOR GFR 0.82 MG/DL (0.70-1.30); GLOMERULAR FILTRATION RATE > 60.0 (>56); GLUCOSE, FASTING 103 MG/DL (60-100); HDL CHOLESTEROL 36.1 MG/DL (>40); LDL CHOLESTEROL 69.5 MG/DL (<100); NON-HDL-C 127.9 MG/DL; POTASSIUM SERUM 4.6 MMOL/L (3.5-5.1); SODIUM LEVEL 137 MMOL/L (136-145); TOTAL PROTEIN 7.2 G/DL (5.7-8.2); TRIGLYCERIDES LEVEL 292 MG/DL (<150)
[2023-06-12 13:07] LABS: THYROID STIMULATING HORMONE 2.139 uIU/ML (0.55-4.78)
[2023-06-12 13:08] LABS: HEMOGLOBIN A1c 5.5 % (4.0-6.0)
== END ==
LOC: M LAB REF 11:47
PROVIDERS: ATTEND Nurse Practitioner Family
DX: Z79.01 Long term (current) use of anticoagulants (principal); Z13.228 Encounter for screening for other metabolic disorders

== ENCOUNTER → 2023-08-30 | Outpatient (CLI) | payer OTHER | LOC: M SOG 07:58 | PROVIDERS: ATTEND Orthopaedic Surgery | DX: M54.2 Cervicalgia (principal) ==

== ENCOUNTER → 2023-10-25 | Outpatient (CLI) | payer OTHER | LOC: M SOG 07:53 | PROVIDERS: ATTEND Orthopaedic Surgery | DX: M25.512 Pain in left shoulder (principal) ==

== ENCOUNTER → 2023-11-02 | Outpatient (CLI) | payer OTHER | LOC: M SOG 07:54 | PROVIDERS: ATTEND Orthopaedic Surgery | DX: M25.512 Pain in left shoulder (principal) ==

== ENCOUNTER → 2023-12-06 | Outpatient (CLI) | payer OTHER | LOC: M PLARAD 09:07 | PROVIDERS: ATTEND Pain Medicine Interventional Pain Medicine | DX: M54.12 Radiculopathy, cervical region (principal) ==

== ENCOUNTER → 2023-12-26 | Outpatient (REF) | payer OTHER ==
[2023-12-26 17:41] LABS: CHOLESTEROL RISK RATIO 3.72 (<5); HDL CHOLESTEROL 40.3 MG/DL (>40); LDL CHOLESTEROL 66.9 MG/DL (<100); NON-HDL-C 109.7 MG/DL
== END ==
LOC: M LAB REF 16:24
PROVIDERS: ATTEND Nurse Practitioner Family
DX: E78.5 Hyperlipidemia, unspecified (principal)

== ENCOUNTER → 2024-03-21 | Outpatient (CLI) | payer OTHER ==
[~2024-03-21] MED LIST changes: -CLOTLOT TOP; +CLOTLOT2 TOP; -ROSU10TA6 PO; +ROSU10TA61 PO
== END ==
LOC: M SOG 07:51
PROVIDERS: ATTEND Orthopaedic Surgery
DX: M25.531 Pain in right wrist (principal)

== ENCOUNTER → 2024-04-14 | Outpatient (REF) | payer OTHER ==
[2024-04-14 15:47] LABS: CHOLESTEROL RISK RATIO 3.64 (<5); HDL CHOLESTEROL 45.6 MG/DL (>40); LDL CHOLESTEROL 70.6 MG/DL (<100); NON-HDL-C 120.4 MG/DL
== END ==
LOC: M LAB REF 12:00
PROVIDERS: ATTEND Nurse Practitioner Family
DX: E78.5 Hyperlipidemia, unspecified (principal)

== ENCOUNTER → 2024-06-10 | Outpatient (CLI) | payer OTHER ==
[2024-06-10 13:38] LABS: BASO % 0.9 % (0.0-1.0); EOS # 0.1 10^3/uL (0.0-0.5); EOS % 2.4 % (0.0-3.0); HEMATOCRIT 44.7 % (42.0-52.0); HEMOGLOBIN 14.6 g/dl (13.5-17.5); LYMPH % 44.3 % (24.0-44.0); MEAN CORPUSCULAR HGB CONC 32.7 g/dl (32.0-36.5); MEAN CORPUSCULAR VOLUME 91.8 fl (80.0-96.0); MONO # 0.4 10^3/uL (0.0-0.8); PLATELET COUNT, AUTOMATED 354 10^3/uL (150-450); RED BLOOD COUNT 4.87 10^6/uL (4.30-6.10); WHITE BLOOD COUNT 4.6 10^3/uL (4.0-10.0)
[2024-06-10 13:42] LABS: ALKALINE PHOSPHATASE 58 U/L (46-116); ALT/SGPT 59 U/L (7.0-40); AST/SGOT 32 U/L (<34); BILIRUBIN,TOTAL 0.4 MG/DL (0.3-1.2); BLOOD UREA NITROGEN 13 MG/DL (9-23); CALCIUM LEVEL 9.6 MG/DL (8.5-10.1); CARBON DIOXIDE LEVEL 28 MMOL/L (20-31); CHLORIDE LEVEL 104 MMOL/L (98-107); CREATININE FOR GFR 0.87 MG/DL (0.70-1.30); GLOMERULAR FILTRATION RATE > 60.0 (>56); GLUCOSE, FASTING 108 MG/DL (60-100); POTASSIUM SERUM 4.7 MMOL/L (3.5-5.1); SODIUM LEVEL 135 MMOL/L (136-145); TOTAL PROTEIN 7.2 G/DL (5.7-8.2)
== END ==
LOC: M PLALAB 10:19
PROVIDERS: ATTEND Internal Medicine Hematology
DX: I82.90 Acute embolism and thrombosis of unspecified vein (principal)

== ENCOUNTER → 2024-08-06 | Outpatient (REF) | payer OTHER ==
[~2024-08-06] MED LIST changes: +GABA-1172 PO; -GABA-282 PO; -SENN-111 PO; +SENN-165 PO
[2024-08-06 12:57] LABS: BASO % 0.6 % (0.0-1.0); EOS # 0.1 10^3/uL (0.0-0.5); EOS % 2.1 % (0.0-3.0); HEMATOCRIT 42.3 % (42.0-52.0); HEMOGLOBIN 14.1 g/dl (13.5-17.5); LYMPH # 2.3 10^3/uL (1.5-5.0); LYMPH % 43.2 % (24.0-44.0); MEAN CORPUSCULAR HEMOGLOBIN 30.3 pg (27.0-33.0); MEAN CORPUSCULAR HGB CONC 33.3 g/dl (32.0-36.5); MONO # 0.6 10^3/uL (0.0-0.8); MONO % 10.6 % (2.0-8.0); NEUTROPHILS # 2.3 10^3/uL (1.5-8.5); NEUTROPHILS % 43.3 % (36.0-66.0); PLATELET COUNT, AUTOMATED 341 10^3/uL (150-450); RED BLOOD COUNT 4.65 10^6/uL (4.30-6.10); WHITE BLOOD COUNT 5.2 10^3/uL (4.0-10.0)
[2024-08-06 13:38] LABS: THYROID STIMULATING HORMONE 2.768 uIU/ML (0.55-4.78)
[2024-08-06 13:40] LABS: TOTAL 25(OH) VITAMIN D 37.4 NG/ML (20.0-100.0)
[2024-08-06 13:44] LABS: ALBUMIN 3.9 G/DL (3.2-5.2); ALKALINE PHOSPHATASE 62 U/L (46-116); ALT/SGPT 45 U/L (7.0-40); AST/SGOT 23 U/L (<34); BILIRUBIN,TOTAL 0.4 MG/DL (0.3-1.2); BLOOD UREA NITROGEN 15 MG/DL (9-23); CALCIUM LEVEL 9.9 MG/DL (8.5-10.1); CARBON DIOXIDE LEVEL 27 MMOL/L (20-31); CHLORIDE LEVEL 104 MMOL/L (98-107); CHOLESTEROL LEVEL 147 MG/DL (<200); CHOLESTEROL RISK RATIO 3.82 (<5); CREATININE FOR GFR 0.87 MG/DL (0.70-1.30); GLOMERULAR FILTRATION RATE > 60.0 (>56); GLUCOSE, FASTING 105 MG/DL (60-100); HDL CHOLESTEROL 38.4 MG/DL (>40); MAGNESIUM LEVEL 2.2 MG/DL (1.8-2.4); NON-HDL-C 108.6 MG/DL; POTASSIUM SERUM 4.9 MMOL/L (3.5-5.1); SODIUM LEVEL 137 MMOL/L (136-145); TOTAL PROTEIN 7.3 G/DL (5.7-8.2); TRIGLYCERIDES LEVEL 228 MG/DL (<150)
[2024-08-06 14:17] LABS: HEMOGLOBIN A1c 5.7 % (4.0-6.0)
== END ==
LOC: M LAB REF 12:21
PROVIDERS: ATTEND Nurse Practitioner Family
DX: E78.5 Hyperlipidemia, unspecified (principal); E66.01 Morbid (severe) obesity due to excess calories

== ENCOUNTER → 2024-11-24 | Outpatient (REF) | payer OTHER ==
[2024-11-24 13:07] LABS: ALBUMIN 3.9 G/DL (3.2-5.2); ALKALINE PHOSPHATASE 60 U/L (40-129); ALT/SGPT 54 U/L (7.0-40); AST/SGOT 25 U/L (<34); BILIRUBIN,TOTAL 0.4 MG/DL (0.3-1.2); BLOOD UREA NITROGEN 13 MG/DL (9-23); CALCIUM LEVEL 9.8 MG/DL (8.5-10.1); CARBON DIOXIDE LEVEL 29 MMOL/L (20-31); CHLORIDE LEVEL 101 MMOL/L (98-107); CHOLESTEROL LEVEL 147 MG/DL (<200); CHOLESTEROL RISK RATIO 3.76 (<5); CREATININE FOR GFR 0.88 MG/DL (0.70-1.30); GLOMERULAR FILTRATION RATE > 60.0 (>56); GLUCOSE, FASTING 112 MG/DL (60-100); POTASSIUM SERUM 4.9 MMOL/L (3.5-5.1); SODIUM LEVEL 140 MMOL/L (136-145); TOTAL PROTEIN 7.4 G/DL (5.7-8.2); TRIGLYCERIDES LEVEL 205 MG/DL (<150)
[2024-11-24 13:48] LABS: HEMOGLOBIN A1c 5.8 % (4.0-6.0)
== END ==
LOC: M LAB REF 11:34
PROVIDERS: ATTEND Nurse Practitioner Family
DX: E66.01 Morbid (severe) obesity due to excess calories (principal); E78.5 Hyperlipidemia, unspecified

== ENCOUNTER → 2025-02-16 | Outpatient (REF) | payer OTHER ==
[~2025-02-16] MED LIST changes: -FLOM0.4C39 PO; +MAG30ORA18 PO; -MYLASSUD PO; +TAMS-18 PO
[2025-02-16 15:11] LABS: ALKALINE PHOSPHATASE 64 U/L (40-129); ALT/SGPT 65 U/L (7.0-40); AST/SGOT 26 U/L (<34); BILIRUBIN,TOTAL 0.4 MG/DL (0.3-1.2); BLOOD UREA NITROGEN 19 MG/DL (9-23); CALCIUM LEVEL 9.8 MG/DL (8.5-10.1); CARBON DIOXIDE LEVEL 28 MMOL/L (20-31); CHLORIDE LEVEL 99 MMOL/L (98-107); CHOLESTEROL LEVEL 141 MG/DL (<200); CHOLESTEROL RISK RATIO 3.32 (<5); CREATININE FOR GFR 0.89 MG/DL (0.70-1.30); GLOMERULAR FILTRATION RATE > 90.0 (>56); GLUCOSE, FASTING 100 MG/DL (60-100); HDL CHOLESTEROL 42.4 MG/DL (>40); NON-HDL-C 98.6 MG/DL; POTASSIUM SERUM 4.8 MMOL/L (3.5-5.1); SODIUM LEVEL 135 MMOL/L (136-145); TOTAL PROTEIN 7.4 G/DL (5.7-8.2); TRIGLYCERIDES LEVEL 178 MG/DL (<150)
[2025-02-16 16:56] LABS: HEMOGLOBIN A1c 5.8 % (4.0-6.0)
== END ==
LOC: M LAB REF 14:33
PROVIDERS: ATTEND Nurse Practitioner Family
DX: E78.5 Hyperlipidemia, unspecified (principal); R73.03 Prediabetes

== ENCOUNTER → 2025-05-20 | Outpatient (REF) | payer OTHER ==
[2025-05-20 13:12] LABS: ALT/SGPT 50 U/L (7.0-40); AST/SGOT 24 U/L (<34); CALCIUM LEVEL 9.1 MG/DL (8.5-10.1); CARBON DIOXIDE LEVEL 28 MMOL/L (20-31); CHLORIDE LEVEL 99 MMOL/L (98-107); CHOLESTEROL LEVEL 139 MG/DL (<200); CHOLESTEROL RISK RATIO 3.82 (<5); CREATININE FOR GFR 0.89 MG/DL (0.70-1.30); GLOMERULAR FILTRATION RATE > 90.0 (>56); LDL CHOLESTEROL 43.5 MG/DL (<100); NON-HDL-C 102.7 MG/DL; POTASSIUM SERUM 4.4 MMOL/L (3.5-5.1); SODIUM LEVEL 138 MMOL/L (136-145); TRIGLYCERIDES LEVEL 296 MG/DL (<150)
[2025-05-20 13:32] LABS: ESTIMATED AVERAGE GLUCOSE 123.0 MG/DL (60-110)
== END ==
LOC: M LAB REF 12:15
PROVIDERS: ATTEND Nurse Practitioner Family
DX: R73.03 Prediabetes (principal); E78.5 Hyperlipidemia, unspecified

== ENCOUNTER → 2025-06-22 | Outpatient (CLI) | payer MEDICARE, MEDICAID | LOC: M RAD 15:12 | PROVIDERS: ATTEND Student in an Organized Health Care Education/Training Program | DX: Z87.891 Personal history of nicotine dependence (principal) ==

== ENCOUNTER → 2025-08-20 | Outpatient (REF) | payer MEDICARE, MEDICAID ==
[~2025-08-20] MED LIST changes: -ROSU10TA61 PO; +ROSU10TA90 PO
[2025-08-20 12:11] LABS: PSA SCREENING 0.34 NG/ML (< 4.00)
[2025-08-20 12:14] LABS: ALT/SGPT 37 U/L (7.0-40); AST/SGOT 24 U/L (<34); CALCIUM LEVEL 9.8 MG/DL (8.5-10.1); CARBON DIOXIDE LEVEL 26 MMOL/L (20-31); CHLORIDE LEVEL 100 MMOL/L (98-107); CHOLESTEROL LEVEL 159 MG/DL (<200); CHOLESTEROL RISK RATIO 3.83 (<5); CREATININE FOR GFR 0.90 MG/DL (0.70-1.30); GLOMERULAR FILTRATION RATE > 90.0 (>56); LDL CHOLESTEROL 54.1 MG/DL (<100); NON-HDL-C 117.5 MG/DL; POTASSIUM SERUM 4.6 MMOL/L (3.5-5.1); SODIUM LEVEL 138 MMOL/L (136-145); TRIGLYCERIDES LEVEL 317 MG/DL (<150)
[2025-08-20 12:34] LABS: ESTIMATED AVERAGE GLUCOSE 120.0 MG/DL (60-110)
== END ==
LOC: M LAB REF 11:43
PROVIDERS: ATTEND Student in an Organized Health Care Education/Training Program
DX: R73.03 Prediabetes (principal); E78.5 Hyperlipidemia, unspecified; Z12.5 Encounter for screening for malignant neoplasm of prostate; R74.01 Elevation of levels of liver transaminase levels
CPT/HCPCS: 80053; 80061; 83036; G0103